=== PATIENT | female | born 1940 | race Caucasian/White ===

== ENCOUNTER 2021-02-24 13:35 | Inpatient (IN) | payer MEDICARE ==
[~2021-02-24] VITALS: Ht 160 cm; Wt 74.9 kg
[2021-02-24] MEDS ORDERED: CARB15DR3 EACHEYE (14:32)
[2021-02-24] MEDS ORDERED: LORA-52 PO (14:32)
[2021-02-24] MEDS ORDERED: QUET25TA5 PO (14:32)
[2021-02-24] MEDS ORDERED: CHOL100014 PO (14:32)
[2021-02-24] MEDS ORDERED: LISI10TA16 PO (14:32)
[2021-02-24] MEDS ORDERED: METO50TA29 PO (14:32)
[2021-02-24] MEDS ORDERED: DICL20GE TP (14:32)
[2021-02-24] MEDS ORDERED: NIFE30TA2 PO (14:32)
[2021-02-24] MEDS ORDERED: MELA10TA PO (14:32)
[2021-02-24] MEDS ORDERED: MEMA10TA PO (14:32)
[2021-02-24] MEDS ORDERED: DONE5TAB56 PO (14:32)
[2021-02-24] MEDS ORDERED: SERT50TA PO (14:32)
[2021-02-24 15:56] VITALS: BP 153/84
[2021-02-24] MEDS ORDERED: METHYL SALICYLATE/MENTHOL TOPICAL OINTMENT 57GM TUBE. TP PRN (16:45)
[2021-02-24] MEDS ORDERED: ACETAMINOPHEN 325 MG TABLET PO PRN (16:45)
[2021-02-24] MEDS ORDERED: MAGNESIUM HYDROXIDE 2,400 MG/30 ML ORAL.SUSP. PO PRN (16:45)
[2021-02-24] MEDS ORDERED: MAG HYDROX/AL HYDROX/SIMETH 30 ML ORAL.SUSP PO PRN (16:45)
--- NOTE | 2021-02-24 20:51 | EKG ---
[address] [address] Test Date: 2021-02-24 Test Time: 20:30:24 Pat Name: ITZ YARBROUGH Department: Room: [address] [place] [address] Gender: F [employer]pper: : 1940 Requested By: JENNIFER HANSON Order Number: [id number] Reading MD: Niall Caldera Measurements Intervals [place] Rate: 56 P: LA: QRS: -137 QRSD: 94 T: 45 QT: 460 QTc: 447 Interpretive Statements SINUS RHYTHM QRS(T) CONTOUR ABNORMALITY CONSIDER ANTEROSEPTAL MYOCARDIAL DAMAGE T ABNORMALITY IN INFERIOR LEADS ABNORMAL ECG RI6.01 No previous ECG available for comparison Electronically Signed On 02-28-2021 13:36:41 CDT by Niall Caldera
[2021-02-24 21:00] LABS: BASO # 0.1 x10^3/uL (0.0-0.2); BASO % 1 % (0-3); EOS # 0.3 x10^3/uL (0.0-0.7); EOS % 4 % (0-3); HEMATOCRIT 40.6 % (36.0-47.0); HEMOGLOBIN 13.3 g/dL (12.0-15.5); LYMPH # 2.1 x10^3/uL (1.0-4.8); LYMPH % 30 % (24-48); MEAN CORPUSCULAR HEMOGLOBIN 30 pg (25-35); MEAN CORPUSCULAR HGB CONC 33 g/dL (31-37); MEAN CORPUSCULAR VOLUME 91 fL (79-100); MONO # 0.6 x10^3/uL (0.0-1.1); MONO % 9 % (0-9); NEUT % 57 % (31-73); PLATELET COUNT 163 x10^3/uL (140-400); RED BLOOD COUNT 4.46 x10^6/uL (3.50-5.40); WHITE BLOOD COUNT 7.1 x10^3/uL (4.0-11.0)
[2021-02-24 21:14] LABS: ALBUMIN 3.5 g/dL (3.4-5.0); ALBUMIN/GLOBULIN RATIO 0.8 (1.0-1.7); GFR 53.5; MAGNESIUM 2.3 mg/dL (1.8-2.4); POTASSIUM 3.7 mmol/L (3.5-5.1); TOTAL BILIRUBIN 0.3 mg/dL (0.2-1.0); TOTAL PROTEIN 7.7 g/dL (6.4-8.2)
--- NOTE | 2021-02-24 21:57 | PDOC ---
Exam Note: Jack Note: Please also refer to the separate dictated note~for this date of service dictated separately.~Patient seen individually. Discussed the patient with Nursing staff reviewed the chart.~Reviewed interim history and current functioning. Reviewed vital signs,~Labs/ Radiology~and current medications noted below. Continue current treatment with the changes noted in the dictated addendum note Assessment: Vital Signs/I&O: Vital Signs Date Time Temp Pulse Resp B/P (MAP) Pulse Ox O2 Delivery O2 Flow Rate FiO2 02/24/21 15:56 97.8 65 18 153/84 (107) 95 Labs: Laboratory Tests Test 02/24/21 20:35 White Blood Count 7.1 x10^3/uL (4.0-11.0) Red Blood Count 4.46 x10^6/uL (3.50-5.40) Hemoglobin 13.3 g/dL (12.0-15.5) Hematocrit 40.6 % (36.0-47.0) Mean Corpuscular Volume 91 fL (79-100) Mean Corpuscular Hemoglobin 30 pg (25-35) Mean Corpuscular Hemoglobin Concent 33 g/dL (31-37) Red Cell Distribution Width 14.0 % (11.5-14.5) Platelet Count 163 x10^3/uL (140-400) Neutrophils (%) (Auto) 57 % (31-73) Lymphocytes (%) (Auto) 30 % (24-48) Monocytes (%) (Auto) 9 % (0-9) Eosinophils (%) (Auto) 4 % (0-3) H Basophils (%) (Auto) 1 % (0-3) Neutrophils # (Auto) 4.0 x10^3uL (1.8-7.7) Lymphocytes # (Auto) 2.1 x10^3/uL (1.0-4.8) Monocytes # (Auto) 0.6 x10^3/uL (0.0-1.1) Eosinophils # (Auto) 0.3 x10^3/uL (0.0-0.7) Basophils # (Auto) 0.1 x10^3/uL (0.0-0.2) D-Dimer (Ay) 0.43 mg/L (0.00-0.50) Sodium Level 139 mmol/L (136-145) Potassium Level 3.7 mmol/L (3.5-5.1) Chloride Level 103 mmol/L (98-107) Carbon Dioxide Level 25 mmol/L (21-32) Anion Gap 11 (6-14) Blood Urea Nitrogen 23 mg/dL (7-20) H Creatinine 1.0 mg/dL (0.6-1.0) Estimated GFR (Cockcroft-Gault) 53.5 BUN/Creatinine Ratio 23 (6-20) H Glucose Level 123 mg/dL (70-99) H Calcium Level 9.0 mg/dL (8.5-10.1) Magnesium Level 2.3 mg/dL (1.8-2.4) Total Bilirubin 0.3 mg/dL (0.2-1.0) Aspartate Amino Transferase (AST) 19 U/L (15-37) Alanine Aminotransferase (ALT) 30 U/L (14-59) Alkaline Phosphatase 63 U/L (46-116) Total Protein 7.7 g/dL (6.4-8.2) Albumin 3.5 g/dL (3.4-5.0) Albumin/Globulin Ratio 0.8 (1.0-1.7) L Current Medications: Meds: Laboratory Tests Test 02/24/21 20:35 White Blood Count 7.1 x10^3/uL Red Blood Count 4.46 x10^6/uL Hemoglobin 13.3 g/dL Hematocrit 40.6 % Mean Corpuscular Volume 91 fL Mean Corpuscular Hemoglobin 30 pg Mean Corpuscular Hemoglobin Concent 33 g/dL Red Cell Distribution Width 14.0 % Platelet Count 163 x10^3/uL Neutrophils (%) (Auto) 57 % Lymphocytes (%) (Auto) 30 % Monocytes (%) (Auto) 9 % Eosinophils (%) (Auto) 4 % Basophils (%) (Auto) 1 % Neutrophils # (Auto) 4.0 x10^3uL Lymphocytes # (Auto) 2.1 x10^3/uL Monocytes # (Auto) 0.6 x10^3/uL Eosinophils # (Auto) 0.3 x10^3/uL Basophils # (Auto) 0.1 x10^3/uL D-Dimer (Ya) 0.43 mg/L Sodium Level 139 mmol/L Potassium Level 3.7 mmol/L Chloride Level 103 mmol/L Carbon Dioxide Level 25 mmol/L Anion Gap 11 Blood Urea Nitrogen 23 mg/dL Creatinine 1.0 mg/dL Estimated GFR (Cockcroft-Gault) 53.5 BUN/Creatinine Ratio 23 Glucose Level 123 mg/dL Calcium Level 9.0 mg/dL Magnesium Level 2.3 mg/dL Total Bilirubin 0.3 mg/dL Aspartate Amino Transf (AST/SGOT) 19 U/L Alanine Aminotransferase (ALT/SGPT) 30 U/L Alkaline Phosphatase 63 U/L Total Protein 7.7 g/dL Albumin 3.5 g/dL Albumin/Globulin Ratio 0.8 Current Medications Medications (Trade) Dose Ordered Sig/Geoffrey Route PRN Reason Start Time Stop Time Status Last Admin Dose Admin Acetaminophen (Tylenol) 650 mg PRN Q6HRS PRN PO MILD PAIN / TEMP > 100.3'F 02/24/21 16:45 Multi-Ingredient Ointment (Analgesic [place]) 1 alis PRN QID PRN TP MUSCLE PAIN 02/24/21 16:45 Al Hydroxide/Mg Hydroxide (Mylanta Plus Xs) 15 ml PRN AFTMEALHC PRN PO DYSPEPSIA 02/24/21 16:45 Magnesium Hydroxide (Milk Of Magnesia) 2,400 mg PRN QHS PRN PO CONSTIPATION 02/24/21 16:45 Diclofenac Sodium (Voltaren) 1 alis BID TP 02/24/21 21:00 Donepezil HCl (Aricept) 15 mg HS PO 02/24/21 21:00 Lisinopril (Prinivil) 10 mg DAILY PO 02/25/21 09:00 Memantine (Namenda) 10 mg BID PO 02/24/21 21:00 Metoprolol Succinate (Toprol Xl) 50 mg HS PO 02/24/21 21:00 Nifedipine (Procardia Xl) 30 mg DAILY PO 02/25/21 09:00 Quetiapine Fumarate (SEROquel) 25 mg BID PO 02/24/21 21:00 Sertraline HCl (Zoloft) 50 mg DAILY PO 02/25/21 09:00 Artificial Tears (Refresh Classic) 1 drop BID OU 02/24/21 21:00 Vitamin D (Vitamin D3) 25 unit DAILY PO 02/25/21 09:00 Cetirizine HCl (ZyrTEC) 10 mg DAILY PO 02/25/21 09:00 Melatonin (Melatonin) 3 mg QHS PO 02/24/21 21:00 I have reviewed the current psychotropics carefully including drug interactions. Risk benefit ratio favors no change other than as noted in my dictated progress note. Diagnosis: Problems: (1) Dementia with behavioral disturbance (2) Major neurocognitive disorder (3) Dementia in Alzheimer's disease with delusions (4) Dementia in Alzheimer's disease with depression (5) Dementia, vascular, with delusions (6) Dementia, vascular, with depression (7) Anxiety disorder, unspecified (8) Impulse control disorder, unspecified JENNIFER HANSON MD Feb 24, 2021 21:57
[2021-02-24] MEDS: METOPROLOL SUCC 24HR ER 50 MG TAB.ER.24H. PO SCH (21:59)
[2021-02-24] MEDS: QUEtiapine 25 MG TABLET. PO SCH (21:59)
[2021-02-24] MEDS: DONEPEZIL HCL 5 MG TABLET. PO SCH (21:59)
[2021-02-24] MEDS: MELATONIN 3 MG TABLET PO SCH (21:59)
[2021-02-24] MEDS: POLYVINYL ALCOHOL/POVIDONE/PF OPHTH SOLUTION DROPERETTE. OU SCH (22:00)
[2021-02-24] MEDS: MEMANTINE 10 MG TABLET. PO SCH (22:00)
[2021-02-24] MEDS: DICLOFENAC SODIUM 1% TOPICAL GEL 100GM TUBE. TP SCH ×3 (22:01→23:38)
--- NOTE | 2021-02-24 22:27 | HP ---
DATE OF SERVICE: 02/24/2021 ADMIT DATE: 02/24/2021 PSYCHIATRIC ADMISSION HISTORY/EVALUATION IDENTIFYING DATA: The patient is a 80-year-old female referred to us from [facility] by her primary care physician, Dr. Stephanie Rose, and coordinated by her daughter, Maia Garcia, since the daughter is the power of assistant city attorney. She has been referred on account of worsening aggression toward staff. She tried to hit a peer, was accusing staff of taking her things. She was hoarding soiled briefs in her room. She thought a peer had killed her . She has been extremely hypersexual, though family states this behavior has persisted much of her life. The patient has been paranoid, more confused, agitated, has failed outpatient psychiatric intervention resulting in this referral. I met with the patient on the evening of 02/24/2021 for this evaluation. CHIEF COMPLAINT: "I came here today. No, I don't know where I live." HISTORY OF PRESENT ILLNESS: The patient reportedly has a history of dementia, Alzheimer's, vascular type. She has been residing at the [facility], but recently has been extremely agitated, aggressive, disruptive, psychotic and paranoid within the context of her dementia. She has had some sleep and appetite changes. No active suicidal or homicidal ideation. PAST PSYCHIATRIC HISTORY: As above. MEDICAL HISTORY: Hypertension, seasonal allergies, hard of hearing, migraine headaches, history of TIAs, hyperlipidemia, heart murmur, spinal stenosis. ACCU-CHEKS: None. CODE STATUS: DNR. ALLERGIES: INFLUENZA VACCINE, CODEINE, POVIDONE IODINE, SHELLFISH, EPINEPHRINE, SULFA, CEFTIN, CIPRO, AUGMENTIN, REGLAN, DORYX, LATEX TAPE, CEPACOL SORE THROAT SPRAY. DIET: Regular. ACTIVITY: Ambulates independently. CURRENT PSYCHOTROPICS: Aricept 15 mg at bedtime, melatonin 10 mg at bedtime, Namenda 10 mg b.i.d., Seroquel 25 mg b.i.d., Zoloft 50 mg a day. FAMILY HISTORY: Noncontributory. SOCIAL HISTORY: No history of alcohol, drug abuse, physical, sexual, elder abuse history is noted. She is not known to be a perpetrator. REACTION TO HOSPITALIZATION: The patient accepting of it. REVIEW OF SYSTEMS: No CV, , pulmonary, eye, ENT system symptoms on review. I met with the patient in her room, evening of 02/24/2021. MENTAL STATUS EXAM: The patient is oriented to herself. Insight, judgment, recent and remote memory, attention, concentration, fund of knowledge poor consistent with her diagnosis. She did seem to know she came here today, but I am not sure if that was just an aberrant response that turned out to be right. [facility], she was hitting, kicking, biting per GRAHAM Gamboa. IMPRESSION: Major neurocognitive disorder, Alzheimer, vascular with delusion, depression, behavioral disturbance; anxiety disorder, unspecified; impulse control disorder, unspecified. Rest as above. PLAN: Admit to geropsychiatry unit at [facility]. I will see the patient daily individually from a psychiatric standpoint, medical followup with Dr. Elizabeth/Dr. Grover. Continue current psychotropics, observe baseline, adjust as clinically indicated. ESTIMATED LENGTH OF STAY: 10-12 days. DISPOSITION PLAN: Back to [facility] when stable. HAMIDA DR: Martin TID: [id number]
[2021-02-24] MEDS ORDERED: NYSTATIN TOPICAL POWDER 15GM BOTTLE. TP PRN (23:00)
[2021-02-25 03:05] LABS: BACTERIA,URINE FEW /HPF (0-FEW); BILIRUBIN,URINE NEG (NEG); CLARITY,URINE CLEAR; COLOR,URINE YELLOW; GLUCOSE,URINE NEG (NEG); HYALINE CASTS, URINE FEW /HPF; NITRITE,URINE NEG (NEG); SQUAMOUS EPITHELIAL CELL,UR FEW /LPF; UROBILINOGEN,URINE 0.2 mg/dL (0.2 mg/dL)
[2021-02-25 05:52] VITALS: BP 111/75
[2021-02-25] MEDS: DICLOFENAC SODIUM 1% TOPICAL GEL 100GM TUBE. TP SCH ×2 (09:00→21:00)
[2021-02-25] MEDS ORDERED: CHOLECALCIFEROL (VITAMIN D3) 1,000 UNIT TABLET PO SCH (09:00)
[2021-02-25] MEDS: POLYVINYL ALCOHOL/POVIDONE/PF OPHTH SOLUTION DROPERETTE. OU SCH ×2 (09:08→21:57)
[2021-02-25] MEDS: LISINOPRIL 10 MG TABLET PO SCH (09:09)
[2021-02-25] MEDS: MEMANTINE 10 MG TABLET. PO SCH ×2 (09:09→21:57)
[2021-02-25] MEDS: CETIRIZINE HCL 10 MG TABLET PO SCH (09:09)
[2021-02-25] MEDS: SERTRALINE 50 MG TABLET. PO SCH (09:09)
[2021-02-25] MEDS: QUEtiapine 25 MG TABLET. PO SCH ×2 (09:09→21:56)
[2021-02-25] MEDS: CHOLECALCIFEROL (VITAMIN D3) 1,000 UNIT TABLET PO SCH (12:08)
--- NOTE | 2021-02-25 13:16 | CONS ---
DATE OF CONSULTATION: 02/25/2021 ATTENDING PHYSICIAN: Dr. Escoto. We are asked to see this patient for medical consultation. HISTORY OF PRESENT ILLNESS: Mikaela Hines is a 80-year-old female, currently a resident at the facility in [place], [place]. She has significant profound dementia. Recently, she has had behavioral issues with hypersexual behavior, trying to hit peer, aggressive towards staff, and throwing things. She is somewhat paranoid. She is very pleasant at this time and has no complaints. PAST MEDICAL HISTORY: Significant for dementia, TIA, high blood pressure, herniated nucleus pulposus, supposed juvenile rheumatoid arthritis and spinal stenosis. CURRENT MEDICATIONS: Reviewed. She was taking cholecalciferol, Tylenol, Artificial Tears, cetirizine, diclofenac, Aricept, magnesium hydroxide, melatonin, Namenda, metoprolol, nifedipine, Seroquel, Zoloft, and vitamin D. ALLERGIES: SHE HAS MULTIPLE ALLERGIES INCLUDING PROZAC, SULFA, TAPE, AMOXICILLIN, ASPIRIN, BENZOCAINE, CEFUROXIME, CIPRO, CLAVULANIC ACID, CODEINE, DOXYCYCLINE, EPINEPHRINE, EXACT REACTIONS ARE UNCLEAR. SOCIAL HISTORY: She is a nonsmoker, nondrinker. FAMILY HISTORY: Unobtainable. REVIEW OF SYSTEMS: Significant for the psychiatric issues. She is at a shelter at this time. PHYSICAL EXAMINATION: GENERAL: When I saw her, this is a pleasant elderly female who is a bit confused. VITAL SIGNS: Initial vital signs showed a blood pressure 153/84, pulse is 65 and regular. She is afebrile. Oxygen saturation is 86% on room air. HEENT: Head is without trauma. Pupils are reactive. Sclerae nonicteric. Oropharynx is clear. NECK: Supple, no bruits. LUNGS: Clear. CARDIOVASCULAR: Showed regular heart tones. No gallop. ABDOMEN: Soft. EXTREMITIES: Without edema. NEUROLOGIC: Focally intact. PERTINENT LABORATORY STUDIES: Hemoglobin is 13.3 g/dL with a white count of 7100. Electrolytes are within normal range. Nonfasting blood sugar 123. Urinalysis was clear. ASSESSMENT: 1. This is a 80-year-old female with profound dementia. 2. Behavioral issues as noted. 3. Essential hypertension. 4. Hyperlipidemia. 5. History of TIA. PLAN AND RECOMMENDATIONS: 1. I have reviewed her medications and they should be continued. 2. The patient is stable from medical standpoint at this time. Thank you again for asking to see the patient for medical consultation. We shall gladly follow along during her inpatient course. ROSE/RAMBO/GILA DR: ROSE/kyra TID: [id number]
[2021-02-25 14:36] LABS: THYROID STIM HORMONE (TSH) 2.633 uIU/mL (0.358-3.740)
[2021-02-25 16:08] VITALS: BP 98/62
[2021-02-25 20:06] LABS: THYROXINE 4.7 ug/dL (4.5-12.0)
[2021-02-25] MEDS: DONEPEZIL HCL 5 MG TABLET. PO SCH (21:56)
[2021-02-25] MEDS: MELATONIN 3 MG TABLET PO SCH (21:56)
[2021-02-25] MEDS: METOPROLOL SUCC 24HR ER 50 MG TAB.ER.24H. PO SCH (21:57)
--- NOTE | 2021-02-25 21:58 | PDOC ---
Exam Note: Jack Note: Please also refer to the separate dictated note~for this date of service dictated separately.~Patient seen individually. Discussed the patient with Nursing staff reviewed the chart.~Reviewed interim history and current functioning. Reviewed vital signs,~Labs/ Radiology~and current medications noted below. Continue current treatment with the changes noted in the dictated addendum note Assessment: Vital Signs/I&O: Vital Signs Date Time Temp Pulse Resp B/P (MAP) Pulse Ox O2 Delivery O2 Flow Rate FiO2 02/25/21 16:08 98.7 68 18 98/62 (74) 96 02/25/21 05:52 Room Air I & O 02/24/21 02/24/21 02/25/21 15:00 23:00 07:00 Intake Total 360 ml Balance 360 ml Labs: Laboratory Tests Test 02/25/21 02:30 Urine Collection Type Unknown Urine Color Yellow Urine Clarity Clear Urine pH 5.0 Urine Specific Gerry 1.015 Urine Protein Neg (NEG-TRACE) Urine Glucose (UA) Neg mg/dL (NEG) Urine Ketones (Stick) Neg mg/dL (NEG) Urine Blood Neg (NEG) Urine Nitrite Neg (NEG) Urine Bilirubin Neg (NEG) Urine Urobilinogen Dipstick 0.2 mg/dL (0.2 mg/dL) Urine Leukocyte Esterase Neg (NEG) Urine RBC 1-2 /HPF (0-2) Urine WBC 1-4 /HPF (0-4) Urine Squamous Epithelial Cells Few /LPF Urine Bacteria Few /HPF (0-FEW) Urine Hyaline Casts Few /HPF Urine Mucus Slight /LPF Current Medications: Meds: Laboratory Tests Test 02/25/21 02:30 Urine Collection Type Unknown Urine Color Yellow Urine Clarity Clear Urine pH 5.0 Urine Specific Gerry 1.015 Urine Protein Neg Urine Glucose (UA) Neg mg/dL Urine Ketones (Stick) Neg mg/dL Urine Blood Neg Urine Nitrite Neg Urine Bilirubin Neg Urine Urobilinogen Dipstick 0.2 mg/dL Urine Leukocyte Esterase Neg Urine RBC 1-2 /HPF Urine WBC 1-4 /HPF Urine Squamous Epithelial Cells Few /LPF Urine Bacteria Few /HPF Urine Hyaline Casts Few /HPF Urine Mucus Slight /LPF Current Medications Medications (Trade) Dose Ordered Sig/Geoffrey Route PRN Reason Start Time Stop Time Status Last Admin Dose Admin Acetaminophen (Tylenol) 650 mg PRN Q6HRS PRN PO MILD PAIN / TEMP > 100.3'F 02/24/21 16:45 Multi-Ingredient Ointment (Analgesic [place]) 1 alis PRN QID PRN TP MUSCLE PAIN 02/24/21 16:45 Al Hydroxide/Mg Hydroxide (Mylanta Plus Xs) 15 ml PRN AFTMEALHC PRN PO DYSPEPSIA 02/24/21 16:45 Magnesium Hydroxide (Milk Of Magnesia) 2,400 mg PRN QHS PRN PO CONSTIPATION 02/24/21 16:45 Diclofenac Sodium (Voltaren) 1 alis BID TP 02/24/21 21:00 Donepezil HCl (Aricept) 15 mg HS PO 02/24/21 21:00 02/24/21 21:59 Lisinopril (Prinivil) 10 mg DAILY PO 02/25/21 09:00 02/25/21 09:09 Memantine (Namenda) 10 mg BID PO 02/24/21 21:00 02/25/21 09:09 Metoprolol Succinate (Toprol Xl) 50 mg HS PO 02/24/21 21:00 02/24/21 21:59 Nifedipine (Procardia Xl) 30 mg DAILY PO 02/25/21 09:00 02/25/21 09:09 Quetiapine Fumarate (SEROquel) 25 mg BID PO 02/24/21 21:00 02/25/21 09:09 Sertraline HCl (Zoloft) 50 mg DAILY PO 02/25/21 09:00 02/25/21 09:09 Artificial Tears (Refresh Classic) 1 drop BID OU 02/24/21 21:00 02/25/21 09:08 Vitamin D (Vitamin D3) 25 unit DAILY PO 02/25/21 09:00 02/25/21 10:32 DC Cetirizine HCl (ZyrTEC) 10 mg DAILY PO 02/25/21 09:00 02/25/21 09:09 Melatonin (Melatonin) 3 mg QHS PO 02/24/21 21:00 02/24/21 21:59 Nystatin (Nystop) 1 alis PRN BID PRN TP groin irritation/yeast 02/24/21 23:00 02/25/21 05:10 Vitamin D (Vitamin D3) 1,000 unit DAILY PO 02/25/21 10:45 02/25/21 12:08 Current Medications Medications (Trade) Dose Ordered Sig/Geoffrey Route PRN Reason Start Time Stop Time Status Last Admin Dose Admin Lisinopril (Prinivil) 10 mg DAILY PO 02/25/21 09:00 02/25/21 09:09 Nifedipine (Procardia Xl) 30 mg DAILY PO 02/25/21 09:00 02/25/21 09:09 Sertraline HCl (Zoloft) 50 mg DAILY PO 02/25/21 09:00 02/25/21 09:09 Cetirizine HCl (ZyrTEC) 10 mg DAILY PO 02/25/21 09:00 02/25/21 09:09 Nystatin (Nystop) 1 alis PRN BID PRN TP groin irritation/yeast 02/24/21 23:00 02/25/21 05:10 Vitamin D (Vitamin D3) 1,000 unit DAILY PO 02/25/21 10:45 02/25/21 12:08 I have reviewed the current psychotropics carefully including drug interactions. Risk benefit ratio favors no change other than as noted in my dictated progress note. 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
[2021-02-26 01:07] LABS: HEMOGLOBIN A1C 6.3 % (4.8-5.6)
[2021-02-26 06:29] VITALS: BP 123/62
[2021-02-26] MEDS: DICLOFENAC SODIUM 1% TOPICAL GEL 100GM TUBE. TP SCH ×2 (09:00→19:53)
[2021-02-26] MEDS: CHOLECALCIFEROL (VITAMIN D3) 1,000 UNIT TABLET PO SCH (09:13)
[2021-02-26] MEDS: CETIRIZINE HCL 10 MG TABLET PO SCH (09:13)
[2021-02-26] MEDS: SERTRALINE 50 MG TABLET. PO SCH (09:13)
[2021-02-26] MEDS: POLYVINYL ALCOHOL/POVIDONE/PF OPHTH SOLUTION DROPERETTE. OU SCH ×2 (09:14→19:53)
[2021-02-26] MEDS: MEMANTINE 10 MG TABLET. PO SCH ×2 (09:14→19:52)
[2021-02-26] MEDS: LISINOPRIL 10 MG TABLET PO SCH (09:14)
[2021-02-26] MEDS: QUEtiapine 25 MG TABLET. PO SCH ×2 (09:14→19:52)
[2021-02-26 15:52] VITALS: BP 119/57
[2021-02-26] MEDS: MELATONIN 3 MG TABLET PO SCH (19:52)
[2021-02-26] MEDS: METOPROLOL SUCC 24HR ER 50 MG TAB.ER.24H. PO SCH (19:53)
[2021-02-26] MEDS: DONEPEZIL HCL 5 MG TABLET. PO SCH (19:53)
--- NOTE | 2021-02-27 00:49 | PN ---
DATE: 02/25/2021 PSYCHIATRIC PROGRESS NOTE This is a late entry, date of service 02/25/2021, covers elements not covered in my initial note. SUBJECTIVE: I met with the patient on the evening of 02/25/2021. Discussed with GRAHAM Gamboa. Reviewed the chart. The patient slept 7-1/4 hours previous evening. She remains confused, was more oriented to her first and last name and date today. She is otherwise confused and unaware of where she is, stating she needed a bed. She seems to thoroughly enjoy ice cream, which helps her behaviorally somewhat by reducing anxiety. I met with her in her room. She slept 7-1/4 hours previous night. REVIEW OF SYSTEMS: No CV, , pulmonary, eye, ENT system symptoms on review. Reliability poor. MENTAL STATUS EXAMINATION: Oriented to herself. Insight, judgment, recent and remote memory, attention, concentration, fund of knowledge poor consistent with her diagnosis. IMPRESSION: Major neurocognitive disorder, Alzheimer, vascular with delusion, depression, behavioral disturbance, anxiety disorder, unspecified; impulse control disorder, unspecified. Rest unchanged from admission. PLAN: Continue Aricept, melatonin, Namenda, Seroquel and Zoloft for now. May consider increasing Zoloft for her mood and anxiety symptoms, adjusting Seroquel as clinically indicated and make further adjustments depending on the patient's progress and response to treatment. SHYAM DR: Martin TID: [id number]
[2021-02-27 05:44] VITALS: BP 106/69
--- NOTE | 2021-02-27 08:44 | PDOC ---
Exam Note: Jack Note: Late entry for 02/26/2021.Please also refer to the separate dictated note~for this date of service dictated separately.~Patient seen individually. Discussed the patient with Nursing staff reviewed the chart.~Reviewed interim history and current functioning. Reviewed vital signs,~Labs/ Radiology~and current medica tions noted below. Continue current treatment with the changes noted in the dictated addendum note Assessment: Vital Signs/I&O: Vital Signs Date Time Temp Pulse Resp B/P (MAP) Pulse Ox O2 Delivery O2 Flow Rate FiO2 02/27/21 05:44 97.9 56 18 106/69 (81) 93 02/25/21 05:52 Room Air I & O 02/26/21 02/26/21 02/27/21 15:00 23:00 07:00 Intake Total 480 ml 360 ml Balance 480 ml 360 ml Current Medications: I have reviewed the current psychotropics carefully including drug interactions. Risk benefit ratio favors no change other than as noted in my dictated progress note. 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
[2021-02-27] MEDS: DICLOFENAC SODIUM 1% TOPICAL GEL 100GM TUBE. TP SCH ×2 (09:00→20:59)
[2021-02-27] MEDS: POLYVINYL ALCOHOL/POVIDONE/PF OPHTH SOLUTION DROPERETTE. OU SCH ×2 (09:02→20:52)
[2021-02-27] MEDS: CHOLECALCIFEROL (VITAMIN D3) 1,000 UNIT TABLET PO SCH (09:02)
[2021-02-27] MEDS: MEMANTINE 10 MG TABLET. PO SCH ×2 (09:02→20:52)
[2021-02-27] MEDS: QUEtiapine 25 MG TABLET. PO SCH ×2 (09:03→20:52)
[2021-02-27] MEDS: SERTRALINE 50 MG TABLET. PO SCH (09:03)
[2021-02-27] MEDS: CETIRIZINE HCL 10 MG TABLET PO SCH (09:03)
[2021-02-27] MEDS: LISINOPRIL 10 MG TABLET PO SCH (09:03)
--- NOTE | 2021-02-27 11:44 | TX PLAN ---
Interdisciplinary Tx Plan Admission Information Feb 24, 2021 at 15:25 Legal Status (on Admission): Voluntary, DPOA DPOA/Guardian Name: Maia Marte-daughter Contact Other Contact Name: Chitra-nurse Other Contact Verified Code Status: DNR Allergies: Coded Allergies: Iodine and Iodide Containing Produc (Verified Allergy, Unknown, 02/24/21) Sulfa (Sulfonamide Antibiotics) (Verified Allergy, Unknown, 02/24/21) adhesive tape (Verified Allergy, Unknown, 02/24/21) amoxicillin (Verified Allergy, Unknown, 02/24/21) aspirin (Verified Allergy, Unknown, 02/24/21) benzocaine (Verified Allergy, Unknown, 02/24/21) cefuroxime (Verified Allergy, Unknown, 02/24/21) cetylpyridinium chloride (Verified Allergy, Unknown, 02/24/21) ciprofloxacin (Verified Allergy, Unknown, 02/24/21) clavulanic acid (Verified Allergy, Unknown, 02/24/21) codeine (Verified Allergy, Unknown, 02/24/21) doxycycline (Verified Allergy, Unknown, 02/24/21) epinephrine (Verified Allergy, Unknown, 02/24/21) influenza virus vaccine, specific (Verified Allergy, Unknown, 02/24/21) latex (Verified Allergy, Unknown, 02/24/21) menthol (Verified Allergy, Unknown, 02/24/21) metoclopramide (Verified Allergy, Unknown, 02/24/21) oxycodone (Verified Allergy, Unknown, 02/24/21) shellfish derived (Verified Allergy, Unknown, 02/24/21) Estimated Length of Stay: 14 Diagnoses Primary Diagnosis: Major neurocognitive d/o, vascular, alzheimer's with delusions, depression, BD; Anxiety d/o unspecified; Impulse Control D/O Reasons for Admission: Aggressive, Delusions, Agitated, Suspicious/paranoid, Confusion/Disoriented, Poor impulse control Problem in Patient's Words: As noted above. Per Radha, "I've got something in my body that's not doing something and causing me to be sick." Additional Admission Comments: Per intake record, accusing staff of pushing her, aggressive towards staff, accuses staff of taking her stuff, hoarding soiled briefs in her room, tried to hit a peer, history of hypersexual behavior, and thought a peer killed her . Problems Active Problems: Delusional Paranoid Confused Hoarding Aggressive Inactive Problems: Meal intakes 50% Sleep 7 hours Medication compliant Pt Strengths/Limitations Ability for [place]: Poor Cognitive Functioning/Ability: Poor Communication Skills/Ability: Fair Financial Resources: Fair Insight/Judgement: Poor Intellectual Ability: Fair Physical Health: Fair Social Skills: Fair Stability in Family: Good Verbal Skills: Fair Discharge Criteria Discharge Criteria: Adequate arrangements @DC, Improved behavior, Improved mood/thought Preliminary Discharge Plan Preliminary DC Plan: Current Living Arrange. Other Arrangements: [facility] vs. memory care Special Precautions Special Precautions: Agitation/Assault Fall Risk: High Initial D/C Plan [facility] vs. memory care placement Identified Discharge Needs: F/U with PCP and out patient psychiatry. Currently Utilized Resources Currently Utilized Resources/P: PCP Out patient psychiatry Identified Problems/Hx/Goals Objectives/Short-Term Goals Short Term Goals: Control abnormal behavior, Dec. Aggression, Dec. Hallucination/Delus, Dec. Outbursts, Medication Stabilization Short Term Goals in Patient's: Per MICHELLE, to ensure Radha is getting the best care, on the right medications, and to preserve placement at [facility] if safe to do so. Interventions/Frequency Staff Interventions/Frequency&: Nursing to provide routine safety checks, medicaton administation, and adl support. Psychiatry to see threes times weekly. SW to see twice weekly. PT/OT eval and tx as indicated. Recreational and SW group activties as Radha desires. 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 Social: Radha has enjoyed [employer] choir, [employer], sewing, and reading. Education: Radha graduated from high school and attended nursing school. 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 Community Follow-up PCP Out patient psychiatry Community Provider/Family Inpu: MICHELLE Carvalho, was unable to be involved in team meeting this date as she was working. CT head to be completed. MMSE to be completed. Tentative d/c around 03/12/21. Treatment Plan Explained Patient/Bit Setter had this treatment plan explained to him/her as indicated by the signature below and has been given the opportunity to ask questions and make suggestions: Date: Patient/Bit Setter Signature: HÉCTOR BUTCHER Feb 27, 2021 11:44
[2021-02-27 15:42] VITALS: BP 130/80
--- NOTE | 2021-02-27 16:08 | RAD ---
EXAM: Head CT without contrast. HISTORY: Mental status changes. TECHNIQUE: Computed tomographic images of the head were obtained without contrast. *One or more of the following individualized dose reduction techniques were utilized for this examina tion: 1. Automated exposure control. 2. Adjustment of the mA and/or kV according to patient size. 3. Use of iterative reconstruction technique. COMPARISON: None. FINDINGS: There is no acute or subacute extra-axial or intraparenchymal hemorrhage. There is no mass effect or midline shift. There is no hydrocephalus. 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 There are left suboccipital craniotomy changes. There is decreased attenuation within the cerebral wh ite matter, likely due to chronic small vessel disease. The orbits and visualized paranasal sinuses mastoid air cells are unremarkable. There is no suspiciou s calvarial lesion. IMPRESSION: 1. No acute intracranial finding. Note is made that MRI is more sensitive for acute infarction. 2. Bilateral cerebral white matter changes, likely due to chronic small vessel disease. 3. Encephalomalacia within the left cerebellum. 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 The possibi lity of superimposed parenchymal changes due to prior surgery is not excluded given evidence of a thiago or left suboccipital craniotomy. Correlate with surgical history. Electronically signed by: Esperanza Mar MD (02/27/2021 4:06 PM) [id number]
[2021-02-27] MEDS: MELATONIN 3 MG TABLET PO SCH (20:52)
[2021-02-27] MEDS: DONEPEZIL HCL 5 MG TABLET. PO SCH (20:53)
[2021-02-27] MEDS: METOPROLOL SUCC 24HR ER 50 MG TAB.ER.24H. PO SCH (20:58)
--- NOTE | 2021-02-27 21:43 | PDOC ---
Exam Note: Jack Note: Please also refer to the separate dictated note~for this date of service dictated separately.~Patient seen individually. Discussed the patient with Nursing staff reviewed the chart.~Reviewed interim history and current functioning. Reviewed vital signs,~Labs/ Radiology~and current medications noted below. Continue current treatment with the changes noted in the dictated addendum note Assessment: Vital Signs/I&O: Vital Signs Date Time Temp Pulse Resp B/P (MAP) Pulse Ox O2 Delivery O2 Flow Rate FiO2 02/27/21 20:58 68 138/78 02/27/21 15:42 97.8 16 97 Room Air I & O 02/26/21 02/26/21 02/27/21 15:00 23:00 07:00 Intake Total 480 ml 360 ml Balance 480 ml 360 ml Current Medications: Meds: Current Medications Medications (Trade) Dose Ordered Sig/Geoffrey Route PRN Reason Start Time Stop Time Status Last Admin Dose Admin Acetaminophen (Tylenol) 650 mg PRN Q6HRS PRN PO MILD PAIN / TEMP > 100.3'F 02/24/21 16:45 Multi-Ingredient Ointment (Analgesic [place]) 1 alis PRN QID PRN TP MUSCLE PAIN 02/24/21 16:45 Al Hydroxide/Mg Hydroxide (Mylanta Plus Xs) 15 ml PRN AFTMEALHC PRN PO DYSPEPSIA 02/24/21 16:45 Magnesium Hydroxide (Milk Of Magnesia) 2,400 mg PRN QHS PRN PO CONSTIPATION 02/24/21 16:45 Diclofenac Sodium (Voltaren) 1 alis BID TP 02/24/21 21:00 02/27/21 20:59 Donepezil HCl (Aricept) 15 mg HS PO 02/24/21 21:00 02/27/21 20:53 Lisinopril (Prinivil) 10 mg DAILY PO 02/25/21 09:00 02/27/21 09:03 Memantine (Namenda) 10 mg BID PO 02/24/21 21:00 02/27/21 20:52 Metoprolol Succinate (Toprol Xl) 50 mg HS PO 02/24/21 21:00 02/27/21 20:58 Nifedipine (Procardia Xl) 30 mg DAILY PO 02/25/21 09:00 02/27/21 09:03 Quetiapine Fumarate (SEROquel) 25 mg BID PO 02/24/21 21:00 02/27/21 20:52 Sertraline HCl (Zoloft) 50 mg DAILY PO 02/25/21 09:00 02/27/21 09:03 Artificial Tears (Refresh Classic) 1 drop BID OU 02/24/21 21:00 02/27/21 20:52 Vitamin D (Vitamin D3) 25 unit DAILY PO 02/25/21 09:00 02/25/21 10:32 DC Cetirizine HCl (ZyrTEC) 10 mg DAILY PO 02/25/21 09:00 02/27/21 09:03 Melatonin (Melatonin) 3 mg QHS PO 02/24/21 21:00 02/27/21 20:52 Nystatin (Nystop) 1 alis PRN BID PRN TP groin irritation/yeast 02/24/21 23:00 02/25/21 05:10 Vitamin D (Vitamin D3) 1,000 unit DAILY PO 02/25/21 10:45 02/27/21 09:02 I have reviewed the current psychotropics carefully including drug interactions. Risk benefit ratio favors no change other than as noted in my dictated progress note. Diagnosis: Problems: (1) Dementia with behavioral disturbance (2) Impulse control disorder, unspecified (3) Anxiety disorder, unspecified (4) Dementia, vascular, with depression (5) Dementia, vascular, with delusions (6) Dementia in Alzheimer's disease with depression (7) Dementia in Alzheimer's disease with delusions (8) Major neurocognitive disorder JENNIFER HANSON MD Feb 27, 2021 21:43
[2021-02-28 06:35] VITALS: BP 124/64
[2021-02-28] MEDS: CETIRIZINE HCL 10 MG TABLET PO SCH (08:49)
[2021-02-28] MEDS: CHOLECALCIFEROL (VITAMIN D3) 1,000 UNIT TABLET PO SCH (08:50)
[2021-02-28] MEDS: QUEtiapine 25 MG TABLET. PO SCH ×2 (08:50→20:22)
[2021-02-28] MEDS: SERTRALINE 50 MG TABLET. PO SCH (08:50)
[2021-02-28] MEDS: MEMANTINE 10 MG TABLET. PO SCH ×2 (08:50→20:21)
[2021-02-28] MEDS: POLYVINYL ALCOHOL/POVIDONE/PF OPHTH SOLUTION DROPERETTE. OU SCH ×2 (08:50→20:23)
[2021-02-28] MEDS: LISINOPRIL 10 MG TABLET PO SCH (08:50)
[2021-02-28] MEDS: DICLOFENAC SODIUM 1% TOPICAL GEL 100GM TUBE. TP SCH ×2 (08:51→20:23)
[2021-02-28 15:35] VITALS: BP 157/84
[2021-02-28] MEDS: DONEPEZIL HCL 5 MG TABLET. PO SCH (20:20)
[2021-02-28] MEDS: MELATONIN 3 MG TABLET PO SCH (20:21)
[2021-02-28] MEDS: METOPROLOL SUCC 24HR ER 50 MG TAB.ER.24H. PO SCH (20:22)
--- NOTE | 2021-02-28 21:56 | PDOC ---
Exam Note: Jack Note: Please also refer to the separate dictated note~for this date of service dictated separately.~Patient seen individually. Discussed the patient with Nursing staff reviewed the chart.~Reviewed interim history and current functioning. Reviewed vital signs,~Labs/ Radiology~and current medications noted below. Continue current treatment with the changes noted in the dictated addendum note Assessment: Vital Signs/I&O: Vital Signs Date Time Temp Pulse Resp B/P (MAP) Pulse Ox O2 Delivery O2 Flow Rate FiO2 02/28/21 20:22 81 157/84 02/28/21 15:35 97.4 16 92 02/28/21 06:35 Room Air I & O 02/27/21 02/27/21 02/28/21 15:00 23:00 07:00 Intake Total 800 ml 270 ml Balance 800 ml 270 ml Current Medications: Meds: Current Medications Medications (Trade) Dose Ordered Sig/Geoffrey Route PRN Reason Start Time Stop Time Status Last Admin Dose Admin Acetaminophen (Tylenol) 650 mg PRN Q6HRS PRN PO MILD PAIN / TEMP > 100.3'F 02/24/21 16:45 Multi-Ingredient Ointment (Analgesic [place]) 1 alis PRN QID PRN TP MUSCLE PAIN 02/24/21 16:45 Al Hydroxide/Mg Hydroxide (Mylanta Plus Xs) 15 ml PRN AFTMEALHC PRN PO DYSPEPSIA 02/24/21 16:45 Magnesium Hydroxide (Milk Of Magnesia) 2,400 mg PRN QHS PRN PO CONSTIPATION 02/24/21 16:45 Diclofenac Sodium (Voltaren) 1 alis BID TP 02/24/21 21:00 02/28/21 20:23 Donepezil HCl (Aricept) 15 mg HS PO 02/24/21 21:00 02/28/21 20:20 Lisinopril (Prinivil) 10 mg DAILY PO 02/25/21 09:00 02/28/21 08:50 Memantine (Namenda) 10 mg BID PO 02/24/21 21:00 02/28/21 20:21 Metoprolol Succinate (Toprol Xl) 50 mg HS PO 02/24/21 21:00 02/28/21 20:22 Nifedipine (Procardia Xl) 30 mg DAILY PO 02/25/21 09:00 02/28/21 08:50 Quetiapine Fumarate (SEROquel) 25 mg BID PO 02/24/21 21:00 02/28/21 20:22 Sertraline HCl (Zoloft) 50 mg DAILY PO 02/25/21 09:00 02/28/21 08:50 Artificial Tears (Refresh Classic) 1 drop BID OU 02/24/21 21:00 02/28/21 20:23 Vitamin D (Vitamin D3) 25 unit DAILY PO 02/25/21 09:00 02/25/21 10:32 DC Cetirizine HCl (ZyrTEC) 10 mg DAILY PO 02/25/21 09:00 02/28/21 08:49 Melatonin (Melatonin) 3 mg QHS PO 02/24/21 21:00 02/28/21 20:21 Nystatin (Nystop) 1 alis PRN BID PRN TP groin irritation/yeast 02/24/21 23:00 02/25/21 05:10 Vitamin D (Vitamin D3) 1,000 unit DAILY PO 02/25/21 10:45 02/28/21 08:50 I have reviewed the current psychotropics carefully including drug interactions. Risk benefit ratio favors no change other than as noted in my dictated progress note. Diagnosis: Problems: (1) Dementia with behavioral disturbance (2) Impulse control disorder, unspecified (3) Anxiety disorder, unspecified (4) Dementia, vascular, with depression (5) Dementia, vascular, with delusions (6) Dementia in Alzheimer's disease with depression (7) Dementia in Alzheimer's disease with delusions (8) Major neurocognitive disorder JENNIFER HANSON MD Feb 28, 2021 21:56
[2021-03-01 06:26] VITALS: BP 114/66
[2021-03-01] MEDS: SERTRALINE 50 MG TABLET. PO SCH (09:38)
[2021-03-01] MEDS: MEMANTINE 10 MG TABLET. PO SCH ×2 (09:38→19:42)
[2021-03-01] MEDS: POLYVINYL ALCOHOL/POVIDONE/PF OPHTH SOLUTION DROPERETTE. OU SCH ×2 (09:38→19:41)
[2021-03-01] MEDS: LISINOPRIL 10 MG TABLET PO SCH (09:39)
[2021-03-01] MEDS: CHOLECALCIFEROL (VITAMIN D3) 1,000 UNIT TABLET PO SCH (09:39)
[2021-03-01] MEDS: QUEtiapine 25 MG TABLET. PO SCH ×2 (09:39→19:42)
[2021-03-01] MEDS: CETIRIZINE HCL 10 MG TABLET PO SCH (09:39)
[2021-03-01] MEDS: DIVALPROEX 125 MG CAP.SPRINK PO SCH ×2 (09:40→17:32)
[2021-03-01] MEDS: DICLOFENAC SODIUM 1% TOPICAL GEL 100GM TUBE. TP SCH ×2 (09:40→13:40)
[2021-03-01 16:07] VITALS: BP 123/63
[2021-03-01] MEDS: METOPROLOL SUCC 24HR ER 50 MG TAB.ER.24H. PO SCH (19:41)
[2021-03-01] MEDS: MELATONIN 3 MG TABLET PO SCH (19:42)
[2021-03-01] MEDS: DONEPEZIL HCL 5 MG TABLET. PO SCH (19:42)
[2021-03-02 06:18] VITALS: BP 124/74
[2021-03-02] MEDS: CETIRIZINE HCL 10 MG TABLET PO SCH (08:43)
[2021-03-02] MEDS: MEMANTINE 10 MG TABLET. PO SCH ×2 (08:43→19:48)
[2021-03-02] MEDS: LISINOPRIL 10 MG TABLET PO SCH (08:43)
[2021-03-02] MEDS: DIVALPROEX 125 MG CAP.SPRINK PO SCH ×2 (08:44→17:33)
[2021-03-02] MEDS: POLYVINYL ALCOHOL/POVIDONE/PF OPHTH SOLUTION DROPERETTE. OU SCH ×2 (08:44→19:46)
[2021-03-02] MEDS: SERTRALINE 50 MG TABLET. PO SCH (08:44)
[2021-03-02] MEDS: QUEtiapine 25 MG TABLET. PO SCH ×2 (08:44→19:48)
[2021-03-02] MEDS: CHOLECALCIFEROL (VITAMIN D3) 1,000 UNIT TABLET PO SCH (08:44)
--- NOTE | 2021-03-02 10:06 | PDOC ---
Exam Note: Jack Note: This note is a late entry for 02/26/2021 covers elements not covered in my initial note. Subjective: The patient was seen individually in the evening of 02/26/2021 with Carolyn STEVENSON, discussed and reviewed the chart. The patient slept 9-1/2 hours previous night. She has been somewhat withdrawn, confused. I met with her in her room at length in the evening. Review of Systems: No CV, , pulmonary, eye, ENT system symptoms on review. She has not been aggressive. 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 Insight and judgement, recent and remote memory, attention and concentration, fund of knowledge is poor consistent with her diagnoses. Laboratory Data: Reviewed. Impression: Major neurocognitive disorder Alzheimer, vascular with delusions, depression, behavioral disturbance. Anxiety disorder unspecified. Impulse control disorder unspecified. Plan: Maintain Seroquel, Zoloft, Namenda and Aricept for now. Observe further and adjust as clinically indicated. Assessment: Vital Signs/I&O: Vital Signs Date Time Temp Pulse Resp B/P (MAP) Pulse Ox O2 Delivery O2 Flow Rate FiO2 03/02/21 08:44 52 124/74 03/02/21 06:18 96.8 16 92 Room Air I & O 03/01/21 03/01/21 03/02/21 15:00 23:00 07:00 Intake Total 740 ml 480 ml Balance 740 ml 480 ml Current Medications: Meds: Current Medications Medications (Trade) Dose Ordered Sig/Geoffrey Route PRN Reason Start Time Stop Time Status Last Admin Dose Admin Acetaminophen (Tylenol) 650 mg PRN Q6HRS PRN PO MILD PAIN / TEMP > 100.3'F 02/24/21 16:45 Multi-Ingredient Ointment (Analgesic [place]) 1 alis PRN QID PRN TP MUSCLE PAIN 02/24/21 16:45 Al Hydroxide/Mg Hydroxide (Mylanta Plus Xs) 15 ml PRN AFTMEALHC PRN PO DYSPEPSIA 02/24/21 16:45 Magnesium Hydroxide (Milk Of Magnesia) 2,400 mg PRN QHS PRN PO CONSTIPATION 02/24/21 16:45 Diclofenac Sodium (Voltaren) 1 alis BID TP 02/24/21 21:00 03/01/21 09:40 Donepezil HCl (Aricept) 15 mg HS PO 02/24/21 21:00 03/01/21 19:42 Lisinopril (Prinivil) 10 mg DAILY PO 02/25/21 09:00 03/02/21 08:43 Memantine (Namenda) 10 mg BID PO 02/24/21 21:00 03/02/21 08:43 Metoprolol Succinate (Toprol Xl) 50 mg HS PO 02/24/21 21:00 03/01/21 19:41 Nifedipine (Procardia Xl) 30 mg DAILY PO 02/25/21 09:00 03/02/21 08:44 Quetiapine Fumarate (SEROquel) 25 mg BID PO 02/24/21 21:00 03/02/21 08:44 Sertraline HCl (Zoloft) 50 mg DAILY PO 02/25/21 09:00 03/02/21 08:44 Artificial Tears (Refresh Classic) 1 drop BID OU 02/24/21 21:00 03/02/21 08:44 Vitamin D (Vitamin D3) 25 unit DAILY PO 02/25/21 09:00 02/25/21 10:32 DC Cetirizine HCl (ZyrTEC) 10 mg DAILY PO 02/25/21 09:00 03/02/21 08:43 Melatonin (Melatonin) 3 mg QHS PO 02/24/21 21:00 03/01/21 19:42 Nystatin (Nystop) 1 alis PRN BID PRN TP groin irritation/yeast 02/24/21 23:00 02/25/21 05:10 Vitamin D (Vitamin D3) 1,000 unit DAILY PO 02/25/21 10:45 03/02/21 08:44 Divalproex Sodium (Depakote Sprinkles) 125 mg 0900,1700 PO 03/01/21 09:00 03/02/21 08:44 I have reviewed the current psychotropics carefully including drug interactions. Risk benefit ratio favors no change other than as noted in my dictated progress note. Diagnosis: Problems: (1) Dementia with behavioral disturbance (2) Impulse control disorder, unspecified (3) Anxiety disorder, unspecified (4) Dementia, vascular, with depression (5) Dementia, vascular, with delusions (6) Dementia in Alzheimer's disease with depression (7) Dementia in Alzheimer's disease with delusions (8) Major neurocognitive disorder JENNIFER HANSON MD Mar 02, 2021 10:06
--- NOTE | 2021-03-02 10:23 | PDOC ---
Exam Note: Jack Note: This note is a late entry for 02/27/2021 covers elements not covered in my initial note. Subjective: The patient was reviewed at treatment team meeting individually in the morning on 02/27/2021 with Addie Lima, Tanya Hernandez, and Cyndie Hayward (social media marketing specialist), Krista, activity therapy and Carolyn STEVENSON, discussed and reviewed the chart. The patient slept 6-1/4 hours previous night. Average sleep 7 hours. Appetite is 50%. Reviewed her history at length. 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 Tanya Hernandez, social service staff will clarify with family if she has had hypersexual behaviors even prior to her onset of dementia. She states she has 6 children but in fact has had 4 and said she was an only child but she was one of 6 children growing up. Apparently while growing up she fell through third floor of her house and had a head injury but then she recovered from it. She had other traumatic events in her life including losing her grandfather who was picking food, her who was killed in a camper accident. She has been disrobing at times. At the nursing facility she has been delusional regarding 90-year-old boyfriend who is another resident at the facility and who and the patient was convinced he was poisoned. We did repeat a CT head on 02/27 which shows no acute intracranial findings. Bilateral cerebral white matter changes, chronic small-vessel disease, encephalomalacia within the left cerebellum likely due to chronic infarction. There are likely superimposed parenchymal changes due to prior surgery and there is a prior left suboccipital craniotomy. We will clarify this with the family. I met with her at length in her room in the evening. Review of Systems: No CV, , pulmonary, eye, ENT system symptoms on review. Reliability poor. Mental Status Exam: The patient is oriented to herself. Insight and judgement, recent and remote memory, attention and concentration, fund of knowledge is poor consistent with her diagnoses. Laboratory Data: Reviewed. Impression: Major neurocognitive disorder Alzheimer, vascular with delusions, depression, behavioral disturbance. Anxiety disorder unspecified. Impulse control disorder unspecified. Plan: Maintain Aricept, melatonin, Namenda and Seroquel, along with Zoloft. We will observe another 24 hours baseline and then adjust as clinically indicated. Reviewed drug interactions and risk-benefit ratio. Assessment: Vital Signs/I&O: Vital Signs Date Time Temp Pulse Resp B/P (MAP) Pulse Ox O2 Delivery O2 Flow Rate FiO2 03/02/21 08:44 52 124/74 03/02/21 06:18 96.8 16 92 Room Air I & O 03/01/21 03/01/21 03/02/21 15:00 23:00 07:00 Intake Total 740 ml 480 ml Balance 740 ml 480 ml Current Medications: Meds: Current Medications Medications (Trade) Dose Ordered Sig/Geoffrey Route PRN Reason Start Time Stop Time Status Last Admin Dose Admin Acetaminophen (Tylenol) 650 mg PRN Q6HRS PRN PO MILD PAIN / TEMP > 100.3'F 02/24/21 16:45 Multi-Ingredient Ointment (Analgesic [place]) 1 alis PRN QID PRN TP MUSCLE PAIN 02/24/21 16:45 Al Hydroxide/Mg Hydroxide (Mylanta Plus Xs) 15 ml PRN AFTMEALHC PRN PO DYSPEPSIA 02/24/21 16:45 Magnesium Hydroxide (Milk Of Magnesia) 2,400 mg PRN QHS PRN PO CONSTIPATION 02/24/21 16:45 Diclofenac Sodium (Voltaren) 1 alis BID TP 02/24/21 21:00 03/01/21 09:40 Donepezil HCl (Aricept) 15 mg HS PO 02/24/21 21:00 03/01/21 19:42 Lisinopril (Prinivil) 10 mg DAILY PO 02/25/21 09:00 03/02/21 08:43 Memantine (Namenda) 10 mg BID PO 02/24/21 21:00 03/02/21 08:43 Metoprolol Succinate (Toprol Xl) 50 mg HS PO 02/24/21 21:00 03/01/21 19:41 Nifedipine (Procardia Xl) 30 mg DAILY PO 02/25/21 09:00 03/02/21 08:44 Quetiapine Fumarate (SEROquel) 25 mg BID PO 02/24/21 21:00 03/02/21 08:44 Sertraline HCl (Zoloft) 50 mg DAILY PO 02/25/21 09:00 03/02/21 08:44 Artificial Tears (Refresh Classic) 1 drop BID OU 02/24/21 21:00 03/02/21 08:44 Vitamin D (Vitamin D3) 25 unit DAILY PO 02/25/21 09:00 02/25/21 10:32 DC Cetirizine HCl (ZyrTEC) 10 mg DAILY PO 02/25/21 09:00 03/02/21 08:43 Melatonin (Melatonin) 3 mg QHS PO 02/24/21 21:00 03/01/21 19:42 Nystatin (Nystop) 1 alis PRN BID PRN TP groin irritation/yeast 02/24/21 23:00 02/25/21 05:10 Vitamin D (Vitamin D3) 1,000 unit DAILY PO 02/25/21 10:45 03/02/21 08:44 Divalproex Sodium (Depakote Sprinkles) 125 mg 0900,1700 PO 03/01/21 09:00 03/02/21 08:44 I have reviewed the current psychotropics carefully including drug interactions. Risk benefit ratio favors no change other than as noted in my dictated progress note. Diagnosis: Problems: (1) Dementia with behavioral disturbance (2) Impulse control disorder, unspecified (3) Anxiety disorder, unspecified (4) Dementia, vascular, with depression (5) Dementia, vascular, with delusions (6) Dementia in Alzheimer's disease with depression (7) Dementia in Alzheimer's disease with delusions (8) Major neurocognitive disorder JENNIFER HANSON MD Mar 02, 2021 10:23
--- NOTE | 2021-03-02 10:29 | PDOC ---
Exam Note: Jack Note: Late entry for 03/01/21. Please also refer to the separate dictated note~for this date of service dictated separately.~Patient seen individually. Discussed the patient with Nursing staff reviewed the chart.~Reviewed interim history and current functioning. Reviewed vital signs,~Labs/ Radiology~and current medicat ions noted below. Continue current treatment with the changes noted in the dictated addendum note Assessment: Vital Signs/I&O: Vital Signs Date Time Temp Pulse Resp B/P (MAP) Pulse Ox O2 Delivery O2 Flow Rate FiO2 03/02/21 08:44 52 124/74 03/02/21 06:18 96.8 16 92 Room Air I & O 03/01/21 03/01/21 03/02/21 15:00 23:00 07:00 Intake Total 740 ml 480 ml Balance 740 ml 480 ml Current Medications: Meds: Current Medications Medications (Trade) Dose Ordered Sig/Geoffrey Route PRN Reason Start Time Stop Time Status Last Admin Dose Admin Acetaminophen (Tylenol) 650 mg PRN Q6HRS PRN PO MILD PAIN / TEMP > 100.3'F 02/24/21 16:45 Multi-Ingredient Ointment (Analgesic [place]) 1 alis PRN QID PRN TP MUSCLE PAIN 02/24/21 16:45 Al Hydroxide/Mg Hydroxide (Mylanta Plus Xs) 15 ml PRN AFTMEALHC PRN PO DYSPEPSIA 02/24/21 16:45 Magnesium Hydroxide (Milk Of Magnesia) 2,400 mg PRN QHS PRN PO CONSTIPATION 02/24/21 16:45 Diclofenac Sodium (Voltaren) 1 alis BID TP 02/24/21 21:00 03/01/21 09:40 Donepezil HCl (Aricept) 15 mg HS PO 02/24/21 21:00 03/01/21 19:42 Lisinopril (Prinivil) 10 mg DAILY PO 02/25/21 09:00 03/02/21 08:43 Memantine (Namenda) 10 mg BID PO 02/24/21 21:00 03/02/21 08:43 Metoprolol Succinate (Toprol Xl) 50 mg HS PO 02/24/21 21:00 03/01/21 19:41 Nifedipine (Procardia Xl) 30 mg DAILY PO 02/25/21 09:00 03/02/21 08:44 Quetiapine Fumarate (SEROquel) 25 mg BID PO 02/24/21 21:00 03/02/21 08:44 Sertraline HCl (Zoloft) 50 mg DAILY PO 02/25/21 09:00 03/02/21 08:44 Artificial Tears (Refresh Classic) 1 drop BID OU 02/24/21 21:00 03/02/21 08:44 Vitamin D (Vitamin D3) 25 unit DAILY PO 02/25/21 09:00 02/25/21 10:32 DC Cetirizine HCl (ZyrTEC) 10 mg DAILY PO 02/25/21 09:00 03/02/21 08:43 Melatonin (Melatonin) 3 mg QHS PO 02/24/21 21:00 03/01/21 19:42 Nystatin (Nystop) 1 alis PRN BID PRN TP groin irritation/yeast 02/24/21 23:00 02/25/21 05:10 Vitamin D (Vitamin D3) 1,000 unit DAILY PO 02/25/21 10:45 03/02/21 08:44 Divalproex Sodium (Depakote Sprinkles) 125 mg 0900,1700 PO 03/01/21 09:00 03/02/21 08:44 I have reviewed the current psychotropics carefully including drug interactions. Risk benefit ratio favors no change other than as noted in my dictated progress note. Diagnosis: Problems: (1) Dementia with behavioral disturbance (2) Impulse control disorder, unspecified (3) Anxiety disorder, unspecified (4) Dementia, vascular, with depression (5) Dementia, vascular, with delusions (6) Dementia in Alzheimer's disease with depression (7) Dementia in Alzheimer's disease with delusions (8) Major neurocognitive disorder JENNIFER HANSON MD Mar 02, 2021 10:29
[2021-03-02 16:13] VITALS: BP 142/88
[2021-03-02] MEDS: MELATONIN 3 MG TABLET PO SCH (19:46)
[2021-03-02] MEDS: DONEPEZIL HCL 5 MG TABLET. PO SCH (19:47)
[2021-03-02] MEDS: METOPROLOL SUCC 24HR ER 50 MG TAB.ER.24H. PO SCH (19:48)
[2021-03-02] MEDS: DICLOFENAC SODIUM 1% TOPICAL GEL 100GM TUBE. TP SCH (19:49)
[2021-03-03 05:57] VITALS: BP 92/55
--- NOTE | 2021-03-03 08:38 | PDOC ---
Exam Note: Jack Note: This note is a late entry for 02/28/2021 covers elements not covered in my initial note. Subjective: The patient was seen individually in the evening of 02/28/2021 with Tico STEVENSON, discussed and reviewed the chart. The patient slept 7-1/2 hours previous night. Patient remains confused, not agitated or aggressive. She spends time with another demented patient. She has not been sexually aggressive. Review of Systems: No CV, , pulmonary, eye, ENT system symptoms on review. Reliability poor. Mental Status Exam: The patient is oriented to herself. Insight and judgement, recent and remote memory, attention and concentration, fund of knowledge is poor consistent with her diagnoses. Laboratory Data: Reviewed. Impression: Major neurocognitive disorder Alzheimer, vascular with delusions, depression, behavioral disturbance. Anxiety disorder unspecified. Impulse control disorder unspecified. Plan: Continue current psychotropics mentioned in my initial note. Start Depakote Sprinkle 125 mg 9 a.m. and 5 p.m. Check CBC, CMP, valproic acid level in 3 days. Adjust to reach therapeutic level. Rest unchanged for now. Assessment: Vital Signs/I&O: Vital Signs Date Time Temp Pulse Resp B/P (MAP) Pulse Ox O2 Delivery O2 Flow Rate FiO2 03/03/21 05:57 97.5 63 16 92/55 (67) 92 03/02/21 06:18 Room Air I & O 03/02/21 03/02/21 03/03/21 15:00 23:00 07:00 Intake Total 600 ml 720 ml Balance 600 ml 720 ml Current Medications: Meds: Current Medications Medications (Trade) Dose Ordered Sig/Geoffrey Route PRN Reason Start Time Stop Time Status Last Admin Dose Admin Acetaminophen (Tylenol) 650 mg PRN Q6HRS PRN PO MILD PAIN / TEMP > 100.3'F 02/24/21 16:45 Multi-Ingredient Ointment (Analgesic [place]) 1 alis PRN QID PRN TP MUSCLE PAIN 02/24/21 16:45 Al Hydroxide/Mg Hydroxide (Mylanta Plus Xs) 15 ml PRN AFTMEALHC PRN PO DYSPEPSIA 02/24/21 16:45 Magnesium Hydroxide (Milk Of Magnesia) 2,400 mg PRN QHS PRN PO CONSTIPATION 02/24/21 16:45 Diclofenac Sodium (Voltaren) 1 alis BID TP 02/24/21 21:00 03/02/21 19:49 Donepezil HCl (Aricept) 15 mg HS PO 02/24/21 21:00 03/02/21 19:47 Lisinopril (Prinivil) 10 mg DAILY PO 02/25/21 09:00 03/02/21 08:43 Memantine (Namenda) 10 mg BID PO 02/24/21 21:00 03/02/21 19:48 Metoprolol Succinate (Toprol Xl) 50 mg HS PO 02/24/21 21:00 03/02/21 19:48 Nifedipine (Procardia Xl) 30 mg DAILY PO 02/25/21 09:00 03/02/21 08:44 Quetiapine Fumarate (SEROquel) 25 mg BID PO 02/24/21 21:00 03/02/21 19:48 Sertraline HCl (Zoloft) 50 mg DAILY PO 02/25/21 09:00 03/02/21 08:44 Artificial Tears (Refresh Classic) 1 drop BID OU 02/24/21 21:00 03/02/21 19:46 Vitamin D (Vitamin D3) 25 unit DAILY PO 02/25/21 09:00 02/25/21 10:32 DC Cetirizine HCl (ZyrTEC) 10 mg DAILY PO 02/25/21 09:00 03/02/21 08:43 Melatonin (Melatonin) 3 mg QHS PO 02/24/21 21:00 03/02/21 19:46 Nystatin (Nystop) 1 alis PRN BID PRN TP groin irritation/yeast 02/24/21 23:00 02/25/21 05:10 Vitamin D (Vitamin D3) 1,000 unit DAILY PO 02/25/21 10:45 03/02/21 08:44 Divalproex Sodium (Depakote Sprinkles) 125 mg 0900,1700 PO 03/01/21 09:00 03/02/21 17:33 I have reviewed the current psychotropics carefully including drug interactions. Risk benefit ratio favors no change other than as noted in my dictated progress note. Diagnosis: Problems: (1) Dementia with behavioral disturbance (2) Impulse control disorder, unspecified (3) Anxiety disorder, unspecified (4) Dementia, vascular, with depression (5) Dementia, vascular, with delusions (6) Dementia in Alzheimer's disease with depression (7) Dementia in Alzheimer's disease with delusions (8) Major neurocognitive disorder JENNIFER HANSON MD Mar 03, 2021 08:38
[2021-03-03] MEDS: QUEtiapine 25 MG TABLET. PO SCH ×2 (08:39→19:44)
[2021-03-03] MEDS: DIVALPROEX 125 MG CAP.SPRINK PO SCH ×2 (08:40→17:30)
[2021-03-03] MEDS: MEMANTINE 10 MG TABLET. PO SCH ×2 (08:40→19:44)
[2021-03-03] MEDS: CETIRIZINE HCL 10 MG TABLET PO SCH (08:40)
[2021-03-03] MEDS: LISINOPRIL 10 MG TABLET PO SCH (08:40)
[2021-03-03] MEDS: SERTRALINE 50 MG TABLET. PO SCH (08:40)
[2021-03-03] MEDS: POLYVINYL ALCOHOL/POVIDONE/PF OPHTH SOLUTION DROPERETTE. OU SCH ×2 (08:40→19:44)
[2021-03-03] MEDS: CHOLECALCIFEROL (VITAMIN D3) 1,000 UNIT TABLET PO SCH (08:40)
[2021-03-03] MEDS: DICLOFENAC SODIUM 1% TOPICAL GEL 100GM TUBE. TP SCH ×2 (08:41→19:47)
--- NOTE | 2021-03-03 08:51 | PDOC ---
Exam Note: Jack Note: This note is a late entry for 03/01/2021 covers elements not covered in my initial note. Subjective: The patient was seen individually in the evening of 03/01/2021 with Tico STEVENSON, discussed and reviewed the chart. The patient slept 7 hours previous night. Overall the patient remains withdrawn. No inappropriate sexual behaviors noted or aggression. I met with her in her room. Review of Systems: No CV, , pulmonary, eye, ENT system symptoms on review. Reliability poor. Mental Status Exam: The patient is oriented to herself. Insight and judgement, recent and remote memory, attention and concentration, fund of knowledge is poor consistent with her diagnoses. Laboratory Data: Reviewed. Impression: Major neurocognitive disorder Alzheimer, vascular with delusions, depression, behavioral disturbance. Anxiety disorder unspecified. Impulse control disorder unspecified. Plan: Continue current psychotropics mentioned in my initial note. Assessment: Vital Signs/I&O: Vital Signs Date Time Temp Pulse Resp B/P (MAP) Pulse Ox O2 Delivery O2 Flow Rate FiO2 03/03/21 08:41 63 92/55 03/03/21 05:57 97.5 16 92 03/02/21 06:18 Room Air I & O 03/02/21 03/02/21 03/03/21 15:00 23:00 07:00 Intake Total 600 ml 720 ml Balance 600 ml 720 ml Current Medications: Meds: Current Medications Medications (Trade) Dose Ordered Sig/Geoffrey Route PRN Reason Start Time Stop Time Status Last Admin Dose Admin Acetaminophen (Tylenol) 650 mg PRN Q6HRS PRN PO MILD PAIN / TEMP > 100.3'F 02/24/21 16:45 Multi-Ingredient Ointment (Analgesic [place]) 1 alis PRN QID PRN TP MUSCLE PAIN 02/24/21 16:45 Al Hydroxide/Mg Hydroxide (Mylanta Plus Xs) 15 ml PRN AFTMEALHC PRN PO DYSPEPSIA 02/24/21 16:45 Magnesium Hydroxide (Milk Of Magnesia) 2,400 mg PRN QHS PRN PO CONSTIPATION 02/24/21 16:45 Diclofenac Sodium (Voltaren) 1 alis BID TP 02/24/21 21:00 03/03/21 08:41 Donepezil HCl (Aricept) 15 mg HS PO 02/24/21 21:00 03/02/21 19:47 Lisinopril (Prinivil) 10 mg DAILY PO 02/25/21 09:00 03/02/21 08:43 Memantine (Namenda) 10 mg BID PO 02/24/21 21:00 03/03/21 08:40 Metoprolol Succinate (Toprol Xl) 50 mg HS PO 02/24/21 21:00 03/02/21 19:48 Nifedipine (Procardia Xl) 30 mg DAILY PO 02/25/21 09:00 03/02/21 08:44 Quetiapine Fumarate (SEROquel) 25 mg BID PO 02/24/21 21:00 03/03/21 08:39 Sertraline HCl (Zoloft) 50 mg DAILY PO 02/25/21 09:00 03/03/21 08:40 Artificial Tears (Refresh Classic) 1 drop BID OU 02/24/21 21:00 03/03/21 08:40 Vitamin D (Vitamin D3) 25 unit DAILY PO 02/25/21 09:00 02/25/21 10:32 DC Cetirizine HCl (ZyrTEC) 10 mg DAILY PO 02/25/21 09:00 03/03/21 08:40 Melatonin (Melatonin) 3 mg QHS PO 02/24/21 21:00 03/02/21 19:46 Nystatin (Nystop) 1 alis PRN BID PRN TP groin irritation/yeast 02/24/21 23:00 02/25/21 05:10 Vitamin D (Vitamin D3) 1,000 unit DAILY PO 02/25/21 10:45 03/03/21 08:40 Divalproex Sodium (Depakote Sprinkles) 125 mg 0900,1700 PO 03/01/21 09:00 03/03/21 08:40 I have reviewed the current psychotropics carefully including drug interactions. Risk benefit ratio favors no change other than as noted in my dictated progress note. Diagnosis: Problems: (1) Dementia with behavioral disturbance (2) Impulse control disorder, unspecified (3) Anxiety disorder, unspecified (4) Dementia, vascular, with depression (5) Dementia, vascular, with delusions (6) Dementia in Alzheimer's disease with depression (7) Dementia in Alzheimer's disease with delusions (8) Major neurocognitive disorder JENNIFER HANSON MD Mar 03, 2021 08:51
--- NOTE | 2021-03-03 09:11 | PDOC ---
Exam Note: Jack Note: Late entry for 03/02/2021. Please also refer to the separate dictated note~for this date of service dictated separately. Discussed the patient with Nursing staff reviewed the chart.~Reviewed interim history and current functioning. Reviewed vital signs,~Labs/ Radiology~and current medications noted below. Continue current treatment with the changes noted in the dictated addendum note Assessment: Vital Signs/I&O: Vital Signs Date Time Temp Pulse Resp B/P (MAP) Pulse Ox O2 Delivery O2 Flow Rate FiO2 03/03/21 08:41 63 92/55 03/03/21 05:57 97.5 16 92 03/02/21 06:18 Room Air I & O 03/02/21 03/02/21 03/03/21 15:00 23:00 07:00 Intake Total 600 ml 720 ml Balance 600 ml 720 ml Current Medications: Meds: Current Medications Medications (Trade) Dose Ordered Sig/Geoffrey Route PRN Reason Start Time Stop Time Status Last Admin Dose Admin Acetaminophen (Tylenol) 650 mg PRN Q6HRS PRN PO MILD PAIN / TEMP > 100.3'F 02/24/21 16:45 Multi-Ingredient Ointment (Analgesic [place]) 1 alis PRN QID PRN TP MUSCLE PAIN 02/24/21 16:45 Al Hydroxide/Mg Hydroxide (Mylanta Plus Xs) 15 ml PRN AFTMEALHC PRN PO DYSPEPSIA 02/24/21 16:45 Magnesium Hydroxide (Milk Of Magnesia) 2,400 mg PRN QHS PRN PO CONSTIPATION 02/24/21 16:45 Diclofenac Sodium (Voltaren) 1 alis BID TP 02/24/21 21:00 03/03/21 08:41 Donepezil HCl (Aricept) 15 mg HS PO 02/24/21 21:00 03/02/21 19:47 Lisinopril (Prinivil) 10 mg DAILY PO 02/25/21 09:00 03/02/21 08:43 Memantine (Namenda) 10 mg BID PO 02/24/21 21:00 03/03/21 08:40 Metoprolol Succinate (Toprol Xl) 50 mg HS PO 02/24/21 21:00 03/02/21 19:48 Nifedipine (Procardia Xl) 30 mg DAILY PO 02/25/21 09:00 03/02/21 08:44 Quetiapine Fumarate (SEROquel) 25 mg BID PO 02/24/21 21:00 03/03/21 08:39 Sertraline HCl (Zoloft) 50 mg DAILY PO 02/25/21 09:00 03/03/21 08:40 Artificial Tears (Refresh Classic) 1 drop BID OU 02/24/21 21:00 03/03/21 08:40 Vitamin D (Vitamin D3) 25 unit DAILY PO 02/25/21 09:00 02/25/21 10:32 DC Cetirizine HCl (ZyrTEC) 10 mg DAILY PO 02/25/21 09:00 03/03/21 08:40 Melatonin (Melatonin) 3 mg QHS PO 02/24/21 21:00 03/02/21 19:46 Nystatin (Nystop) 1 alis PRN BID PRN TP groin irritation/yeast 02/24/21 23:00 02/25/21 05:10 Vitamin D (Vitamin D3) 1,000 unit DAILY PO 02/25/21 10:45 03/03/21 08:40 Divalproex Sodium (Depakote Sprinkles) 125 mg 0900,1700 PO 03/01/21 09:00 03/03/21 08:40 I have reviewed the current psychotropics carefully including drug interactions. Risk benefit ratio favors no change other than as noted in my dictated progress note. Diagnosis: Problems: (1) Dementia with behavioral disturbance (2) Impulse control disorder, unspecified (3) Anxiety disorder, unspecified (4) Dementia, vascular, with depression (5) Dementia, vascular, with delusions (6) Dementia in Alzheimer's disease with depression (7) Dementia in Alzheimer's disease with delusions (8) Major neurocognitive disorder JENNIFER HANSON MD Mar 03, 2021 09:11
[2021-03-03 15:49] VITALS: BP 136/90
[2021-03-03] MEDS: DONEPEZIL HCL 5 MG TABLET. PO SCH (19:44)
[2021-03-03] MEDS: MELATONIN 3 MG TABLET PO SCH (19:45)
[2021-03-03] MEDS: METOPROLOL SUCC 24HR ER 50 MG TAB.ER.24H. PO SCH (19:45)
--- NOTE | 2021-03-03 21:47 | PDOC ---
Exam Note: Jack Note: Please also refer to the separate dictated note~for this date of service dictated separately.~Patient seen individually. Discussed the patient with Nursing staff reviewed the chart.~Reviewed interim history and current functioning. Reviewed vital signs,~Labs/ Radiology~and current medications noted below. Continue current treatment with the changes noted in the dictated addendum note Assessment: Vital Signs/I&O: Vital Signs Date Time Temp Pulse Resp B/P (MAP) Pulse Ox O2 Delivery O2 Flow Rate FiO2 03/03/21 19:45 58 136/90 03/03/21 15:49 98.5 16 92 03/02/21 06:18 Room Air I & O 03/02/21 03/02/21 03/03/21 15:00 23:00 07:00 Intake Total 600 ml 720 ml Balance 600 ml 720 ml Current Medications: Meds: Current Medications Medications (Trade) Dose Ordered Sig/Geoffrey Route PRN Reason Start Time Stop Time Status Last Admin Dose Admin Acetaminophen (Tylenol) 650 mg PRN Q6HRS PRN PO MILD PAIN / TEMP > 100.3'F 02/24/21 16:45 Multi-Ingredient Ointment (Analgesic [place]) 1 alis PRN QID PRN TP MUSCLE PAIN 02/24/21 16:45 Al Hydroxide/Mg Hydroxide (Mylanta Plus Xs) 15 ml PRN AFTMEALHC PRN PO DYSPEPSIA 02/24/21 16:45 Magnesium Hydroxide (Milk Of Magnesia) 2,400 mg PRN QHS PRN PO CONSTIPATION 02/24/21 16:45 Diclofenac Sodium (Voltaren) 1 alis BID TP 02/24/21 21:00 03/03/21 19:47 Donepezil HCl (Aricept) 15 mg HS PO 02/24/21 21:00 03/03/21 19:44 Lisinopril (Prinivil) 10 mg DAILY PO 02/25/21 09:00 03/02/21 08:43 Memantine (Namenda) 10 mg BID PO 02/24/21 21:00 03/03/21 19:44 Metoprolol Succinate (Toprol Xl) 50 mg HS PO 02/24/21 21:00 03/03/21 19:45 Nifedipine (Procardia Xl) 30 mg DAILY PO 02/25/21 09:00 03/02/21 08:44 Quetiapine Fumarate (SEROquel) 25 mg BID PO 02/24/21 21:00 03/03/21 19:44 Sertraline HCl (Zoloft) 50 mg DAILY PO 02/25/21 09:00 03/03/21 08:40 Artificial Tears (Refresh Classic) 1 drop BID OU 02/24/21 21:00 03/03/21 19:44 Vitamin D (Vitamin D3) 25 unit DAILY PO 02/25/21 09:00 02/25/21 10:32 DC Cetirizine HCl (ZyrTEC) 10 mg DAILY PO 02/25/21 09:00 03/03/21 08:40 Melatonin (Melatonin) 3 mg QHS PO 02/24/21 21:00 03/03/21 19:45 Nystatin (Nystop) 1 alis PRN BID PRN TP groin irritation/yeast 02/24/21 23:00 02/25/21 05:10 Vitamin D (Vitamin D3) 1,000 unit DAILY PO 02/25/21 10:45 03/03/21 08:40 Divalproex Sodium (Depakote Sprinkles) 125 mg 0900,1700 PO 03/01/21 09:00 03/03/21 17:30 I have reviewed the current psychotropics carefully including drug interactions. Risk benefit ratio favors no change other than as noted in my dictated progress note. Diagnosis: Problems: (1) Dementia with behavioral disturbance (2) Impulse control disorder, unspecified (3) Anxiety disorder, unspecified (4) Dementia, vascular, with depression (5) Dementia, vascular, with delusions (6) Dementia in Alzheimer's disease with depression (7) Dementia in Alzheimer's disease with delusions (8) Major neurocognitive disorder JENNIFER HANSON MD Mar 03, 2021 21:47
[2021-03-04 05:40] VITALS: BP 147/85
[2021-03-04] MEDS: LISINOPRIL 10 MG TABLET PO SCH (07:59)
[2021-03-04] MEDS: CETIRIZINE HCL 10 MG TABLET PO SCH (07:59)
[2021-03-04] MEDS: POLYVINYL ALCOHOL/POVIDONE/PF OPHTH SOLUTION DROPERETTE. OU SCH ×2 (08:00→19:37)
[2021-03-04] MEDS: DIVALPROEX 125 MG CAP.SPRINK PO SCH ×2 (08:00→17:13)
[2021-03-04] MEDS: MEMANTINE 10 MG TABLET. PO SCH ×2 (08:00→19:39)
[2021-03-04] MEDS: CHOLECALCIFEROL (VITAMIN D3) 1,000 UNIT TABLET PO SCH (08:00)
[2021-03-04] MEDS: QUEtiapine 25 MG TABLET. PO SCH ×2 (08:00→19:39)
[2021-03-04] MEDS: SERTRALINE 50 MG TABLET. PO SCH (08:00)
--- NOTE | 2021-03-04 08:38 | PDOC ---
Exam Note: Jack Note: This note is a late entry for 03/03/2021 covers elements not covered in my initial note. Subjective: The patient was seen individually in the evening of 03/03/2021 with Carolyn STEVENSON, discussed and reviewed the chart. The patient slept 7-1/4 hours previous night. She did well previous evening. She was not undressing in the evening but today during the day she was overtly friendly with one of the other male patients and was quite angry, upset when nursing staff intervened to separate the two. In fact she brought this up when I met with her late this evening and seemed to remember but when I questioned her on the specifics of the incident she did not know the detail, which is understandable given her dementia. I had discussed the patient with Tico STEVENSON additionally on 03/02. Review of Systems: Hard of hearing. No CV, , pulmonary, eye system symptoms on review. Mental Status Exam: The patient is oriented to herself, somewhat anxious, agitated about the above but then better at the end of the visit. I met with her in her room. Insight and judgement, recent and remote memory, attention and concentration, fund of knowledge is poor consistent with her diagnoses. Laboratory Data: Reviewed. Impression: Major neurocognitive disorder Alzheimer, vascular with delusions, depression, behavioral disturbance. Anxiety disorder unspecified. Impulse control disorder unspecified. Plan: Continue current psychotropics mentioned in my initial note, Aricept, melatonin, Namenda, Seroquel, Zoloft and Depakote. Check valproic acid level in the morning and then adjust Depakote to reach therapeutic level. Assessment: Vital Signs/I&O: Vital Signs Date Time Temp Pulse Resp B/P (MAP) Pulse Ox O2 Delivery O2 Flow Rate FiO2 03/04/21 08:00 58 147/85 03/04/21 05:40 97.4 18 95 03/02/21 06:18 Room Air I & O 03/03/21 03/03/21 03/04/21 15:00 23:00 07:00 Intake Total 720 ml 240 ml 360 ml Balance 720 ml 240 ml 360 ml Current Medications: Meds: Current Medications Medications (Trade) Dose Ordered Sig/Geoffrey Route PRN Reason Start Time Stop Time Status Last Admin Dose Admin Acetaminophen (Tylenol) 650 mg PRN Q6HRS PRN PO MILD PAIN / TEMP > 100.3'F 02/24/21 16:45 Multi-Ingredient Ointment (Analgesic [place]) 1 alis PRN QID PRN TP MUSCLE PAIN 02/24/21 16:45 Al Hydroxide/Mg Hydroxide (Mylanta Plus Xs) 15 ml PRN AFTMEALHC PRN PO DYSPEPSIA 02/24/21 16:45 Magnesium Hydroxide (Milk Of Magnesia) 2,400 mg PRN QHS PRN PO CONSTIPATION 02/24/21 16:45 Diclofenac Sodium (Voltaren) 1 alis BID TP 02/24/21 21:00 03/03/21 19:47 Donepezil HCl (Aricept) 15 mg HS PO 02/24/21 21:00 03/03/21 19:44 Lisinopril (Prinivil) 10 mg DAILY PO 02/25/21 09:00 03/04/21 07:59 Memantine (Namenda) 10 mg BID PO 02/24/21 21:00 03/04/21 08:00 Metoprolol Succinate (Toprol Xl) 50 mg HS PO 02/24/21 21:00 03/03/21 19:45 Nifedipine (Procardia Xl) 30 mg DAILY PO 02/25/21 09:00 03/04/21 08:00 Quetiapine Fumarate (SEROquel) 25 mg BID PO 02/24/21 21:00 03/04/21 08:00 Sertraline HCl (Zoloft) 50 mg DAILY PO 02/25/21 09:00 03/04/21 08:00 Artificial Tears (Refresh Classic) 1 drop BID OU 02/24/21 21:00 03/04/21 08:00 Vitamin D (Vitamin D3) 25 unit DAILY PO 02/25/21 09:00 02/25/21 10:32 DC Cetirizine HCl (ZyrTEC) 10 mg DAILY PO 02/25/21 09:00 03/04/21 07:59 Melatonin (Melatonin) 3 mg QHS PO 02/24/21 21:00 03/03/21 19:45 Nystatin (Nystop) 1 alis PRN BID PRN TP groin irritation/yeast 02/24/21 23:00 02/25/21 05:10 Vitamin D (Vitamin D3) 1,000 unit DAILY PO 02/25/21 10:45 03/04/21 08:00 Divalproex Sodium (Depakote Sprinkles) 125 mg 0900,1700 PO 03/01/21 09:00 03/04/21 08:00 I have reviewed the current psychotropics carefully including drug interactions. Risk benefit ratio favors no change other than as noted in my dictated progress note. Diagnosis: Problems: (1) Dementia with behavioral disturbance (2) Impulse control disorder, unspecified (3) Anxiety disorder, unspecified (4) Dementia, vascular, with depression (5) Dementia, vascular, with delusions (6) Dementia in Alzheimer's disease with depression (7) Dementia in Alzheimer's disease with delusions (8) Major neurocognitive disorder JENNIFER HANSON MD Mar 04, 2021 08:38
[2021-03-04] MEDS: DICLOFENAC SODIUM 1% TOPICAL GEL 100GM TUBE. TP SCH ×2 (09:00→19:40)
[2021-03-04 14:50] LABS: BASO # 0.1 x10^3/uL (0.0-0.2); BASO % 1 % (0-3); EOS # 0.2 x10^3/uL (0.0-0.7); EOS % 4 % (0-3); HEMATOCRIT 42.5 % (36.0-47.0); HEMOGLOBIN 13.9 g/dL (12.0-15.5); LYMPH # 1.5 x10^3/uL (1.0-4.8); LYMPH % 26 % (24-48); MEAN CORPUSCULAR HEMOGLOBIN 30 pg (25-35); MEAN CORPUSCULAR HGB CONC 33 g/dL (31-37); MEAN CORPUSCULAR VOLUME 91 fL (79-100); MONO # 0.4 x10^3/uL (0.0-1.1); MONO % 7 % (0-9); NEUT # 3.6 x10^3uL (1.8-7.7); NEUT % 62 % (31-73); PLATELET COUNT 163 x10^3/uL (140-400); RED BLOOD COUNT 4.66 x10^6/uL (3.50-5.40); RED CELL DISTRIBUTION WIDTH 14.2 % (11.5-14.5); WHITE BLOOD COUNT 5.9 x10^3/uL (4.0-11.0)
[2021-03-04 15:13] LABS: ALBUMIN 3.5 g/dL (3.4-5.0); ALBUMIN/GLOBULIN RATIO 0.8 (1.0-1.7); ALK PHOS 67 U/L (46-116); ALT (SGPT) 31 U/L (14-59); ANION GAP 8 (6-14); AST (SGOT) 24 U/L (15-37); BLOOD UREA NITROGEN 20 mg/dL (7-20); BUN/CREATININE RATIO 20 (6-20); CARBON DIOXIDE 24 mmol/L (21-32); CHLORIDE 102 mmol/L (98-107); GFR 53.5; GLUCOSE 132 mg/dL (70-99); POTASSIUM 4.1 mmol/L (3.5-5.1); SODIUM 134 mmol/L (136-145); TOTAL BILIRUBIN 0.3 mg/dL (0.2-1.0)
[2021-03-04 15:16] LABS: VAL ACID 34 mcg/mL (50-100)
[2021-03-04 15:47] VITALS: BP 143/74
[2021-03-04] MEDS: DONEPEZIL HCL 5 MG TABLET. PO SCH (19:37)
[2021-03-04] MEDS: MELATONIN 3 MG TABLET PO SCH (19:39)
[2021-03-04] MEDS: METOPROLOL SUCC 24HR ER 50 MG TAB.ER.24H. PO SCH (19:39)
--- NOTE | 2021-03-04 22:20 | PDOC ---
Exam Note: Jack Note: Please also refer to the separate dictated note~for this date of service dictated separately.~Patient seen individually. Discussed the patient with Nursing staff reviewed the chart.~Reviewed interim history and current functioning. Reviewed vital signs,~Labs/ Radiology~and current medications noted below. Continue current treatment with the changes noted in the dictated addendum note Assessment: Vital Signs/I&O: Vital Signs Date Time Temp Pulse Resp B/P (MAP) Pulse Ox O2 Delivery O2 Flow Rate FiO2 03/04/21 19:39 60 143/74 03/04/21 15:47 97.7 17 94 03/02/21 06:18 Room Air I & O 03/03/21 03/03/21 03/04/21 15:00 23:00 07:00 Intake Total 720 ml 240 ml 360 ml Balance 720 ml 240 ml 360 ml Labs: Laboratory Tests Test 03/04/21 14:25 White Blood Count 5.9 x10^3/uL (4.0-11.0) Red Blood Count 4.66 x10^6/uL (3.50-5.40) Hemoglobin 13.9 g/dL (12.0-15.5) Hematocrit 42.5 % (36.0-47.0) Mean Corpuscular Volume 91 fL (79-100) Mean Corpuscular Hemoglobin 30 pg (25-35) Mean Corpuscular Hemoglobin Concent 33 g/dL (31-37) Red Cell Distribution Width 14.2 % (11.5-14.5) Platelet Count 163 x10^3/uL (140-400) Neutrophils (%) (Auto) 62 % (31-73) Lymphocytes (%) (Auto) 26 % (24-48) Monocytes (%) (Auto) 7 % (0-9) Eosinophils (%) (Auto) 4 % (0-3) H Basophils (%) (Auto) 1 % (0-3) Neutrophils # (Auto) 3.6 x10^3uL (1.8-7.7) Lymphocytes # (Auto) 1.5 x10^3/uL (1.0-4.8) Monocytes # (Auto) 0.4 x10^3/uL (0.0-1.1) Eosinophils # (Auto) 0.2 x10^3/uL (0.0-0.7) Basophils # (Auto) 0.1 x10^3/uL (0.0-0.2) Sodium Level 134 mmol/L (136-145) L Potassium Level 4.1 mmol/L (3.5-5.1) Chloride Level 102 mmol/L (98-107) Carbon Dioxide Level 24 mmol/L (21-32) Anion Gap 8 (6-14) Blood Urea Nitrogen 20 mg/dL (7-20) Creatinine 1.0 mg/dL (0.6-1.0) Estimated GFR (Cockcroft-Gault) 53.5 BUN/Creatinine Ratio 20 (6-20) Glucose Level 132 mg/dL (70-99) H Calcium Level 9.0 mg/dL (8.5-10.1) Total Bilirubin 0.3 mg/dL (0.2-1.0) Aspartate Amino Transferase (AST) 24 U/L (15-37) Alanine Aminotransferase (ALT) 31 U/L (14-59) Alkaline Phosphatase 67 U/L (46-116) Total Protein 8.0 g/dL (6.4-8.2) Albumin 3.5 g/dL (3.4-5.0) Albumin/Globulin Ratio 0.8 (1.0-1.7) L Valproic Acid Level 34 mcg/mL (50-100) L Valproic Acid Last Dose Date 03/03/21 Valproic Acid Last Dose Time 1700 Current Medications: Meds: Laboratory Tests Test 03/04/21 14:25 White Blood Count 5.9 x10^3/uL Red Blood Count 4.66 x10^6/uL Hemoglobin 13.9 g/dL Hematocrit 42.5 % Mean Corpuscular Volume 91 fL Mean Corpuscular Hemoglobin 30 pg Mean Corpuscular Hemoglobin Concent 33 g/dL Red Cell Distribution Width 14.2 % Platelet Count 163 x10^3/uL Neutrophils (%) (Auto) 62 % Lymphocytes (%) (Auto) 26 % Monocytes (%) (Auto) 7 % Eosinophils (%) (Auto) 4 % Basophils (%) (Auto) 1 % Neutrophils # (Auto) 3.6 x10^3uL Lymphocytes # (Auto) 1.5 x10^3/uL Monocytes # (Auto) 0.4 x10^3/uL Eosinophils # (Auto) 0.2 x10^3/uL Basophils # (Auto) 0.1 x10^3/uL Sodium Level 134 mmol/L Potassium Level 4.1 mmol/L Chloride Level 102 mmol/L Carbon Dioxide Level 24 mmol/L Anion Gap 8 Blood Urea Nitrogen 20 mg/dL Creatinine 1.0 mg/dL Estimated GFR (Cockcroft-Gault) 53.5 BUN/Creatinine Ratio 20 Glucose Level 132 mg/dL Calcium Level 9.0 mg/dL Total Bilirubin 0.3 mg/dL Aspartate Amino Transf (AST/SGOT) 24 U/L Alanine Aminotransferase (ALT/SGPT) 31 U/L Alkaline Phosphatase 67 U/L Total Protein 8.0 g/dL Albumin 3.5 g/dL Albumin/Globulin Ratio 0.8 Valproic Acid (Depakene) Level 34 mcg/mL Valproic Acid Last Dose Date 03/03/21 Valproic Acid Last Dose Time 1700 Current Medications Medications (Trade) Dose Ordered Sig/Geoffrey Route PRN Reason Start Time Stop Time Status Last Admin Dose Admin Acetaminophen (Tylenol) 650 mg PRN Q6HRS PRN PO MILD PAIN / TEMP > 100.3'F 02/24/21 16:45 Multi-Ingredient Ointment (Analgesic [place]) 1 alis PRN QID PRN TP MUSCLE PAIN 02/24/21 16:45 Al Hydroxide/Mg Hydroxide (Mylanta Plus Xs) 15 ml PRN AFTMEALHC PRN PO DYSPEPSIA 02/24/21 16:45 Magnesium Hydroxide (Milk Of Magnesia) 2,400 mg PRN QHS PRN PO CONSTIPATION 02/24/21 16:45 Diclofenac Sodium (Voltaren) 1 alis BID TP 02/24/21 21:00 03/04/21 19:40 Donepezil HCl (Aricept) 15 mg HS PO 02/24/21 21:00 03/04/21 19:37 Lisinopril (Prinivil) 10 mg DAILY PO 02/25/21 09:00 03/04/21 07:59 Memantine (Namenda) 10 mg BID PO 02/24/21 21:00 03/04/21 19:39 Metoprolol Succinate (Toprol Xl) 50 mg HS PO 02/24/21 21:00 03/04/21 19:39 Nifedipine (Procardia Xl) 30 mg DAILY PO 02/25/21 09:00 03/04/21 08:00 Quetiapine Fumarate (SEROquel) 25 mg BID PO 02/24/21 21:00 03/04/21 19:39 Sertraline HCl (Zoloft) 50 mg DAILY PO 02/25/21 09:00 03/04/21 08:00 Artificial Tears (Refresh Classic) 1 drop BID OU 02/24/21 21:00 03/04/21 19:37 Vitamin D (Vitamin D3) 25 unit DAILY PO 02/25/21 09:00 02/25/21 10:32 DC Cetirizine HCl (ZyrTEC) 10 mg DAILY PO 02/25/21 09:00 03/04/21 07:59 Melatonin (Melatonin) 3 mg QHS PO 02/24/21 21:00 03/04/21 19:39 Nystatin (Nystop) 1 alis PRN BID PRN TP groin irritation/yeast 02/24/21 23:00 02/25/21 05:10 Vitamin D (Vitamin D3) 1,000 unit DAILY PO 02/25/21 10:45 03/04/21 08:00 Divalproex Sodium (Depakote Sprinkles) 125 mg 0900,1700 PO 03/01/21 09:00 03/04/21 18:15 DC 03/04/21 17:13 Divalproex Sodium (Depakote Sprinkles) 250 mg 0900,1700 PO 03/05/21 09:00 I have reviewed the current psychotropics carefully including drug interactions. Risk benefit ratio favors no change other than as noted in my dictated progress note. Diagnosis: Problems: (1) Dementia with behavioral disturbance (2) Impulse control disorder, unspecified (3) Anxiety disorder, unspecified (4) Dementia, vascular, with depression (5) Dementia, vascular, with delusions (6) Dementia in Alzheimer's disease with depression (7) Dementia in Alzheimer's disease with delusions (8) Major neurocognitive disorder JENNIFER HANSON MD Mar 04, 2021 22:20
[2021-03-05 06:04] VITALS: BP 134/84
[2021-03-05] MEDS: POLYVINYL ALCOHOL/POVIDONE/PF OPHTH SOLUTION DROPERETTE. OU SCH ×2 (08:39→20:38)
[2021-03-05] MEDS: SERTRALINE 50 MG TABLET. PO SCH (08:39)
[2021-03-05] MEDS: MEMANTINE 10 MG TABLET. PO SCH ×2 (08:39→20:38)
[2021-03-05] MEDS: QUEtiapine 25 MG TABLET. PO SCH ×2 (08:39→20:38)
[2021-03-05] MEDS: CHOLECALCIFEROL (VITAMIN D3) 1,000 UNIT TABLET PO SCH (08:39)
[2021-03-05] MEDS: CETIRIZINE HCL 10 MG TABLET PO SCH (08:39)
[2021-03-05] MEDS: DICLOFENAC SODIUM 1% TOPICAL GEL 100GM TUBE. TP SCH ×2 (08:40→20:43)
[2021-03-05] MEDS: DIVALPROEX 125 MG CAP.SPRINK PO SCH ×2 (08:40→17:31)
[2021-03-05] MEDS: LISINOPRIL 10 MG TABLET PO SCH (08:40)
[2021-03-05 15:35] VITALS: BP 135/84
[2021-03-05] MEDS: DONEPEZIL HCL 5 MG TABLET. PO SCH (20:37)
[2021-03-05] MEDS: METOPROLOL SUCC 24HR ER 50 MG TAB.ER.24H. PO SCH (20:38)
[2021-03-05] MEDS: MELATONIN 3 MG TABLET PO SCH (20:38)
--- NOTE | 2021-03-05 21:53 | PDOC ---
Exam Note: Jack Note: Information from date of service 03/02/21 and my information from nursing staff for that date and review of labs and interim progress from 03/02/21 was incorporated into the note of 03/03. This note is a late entry for 03/04/2021 covers elements not covered in my initial note. Subjective: The patient was seen individually in the evening of 03/04/2021 with Carmita STEVENSON, discussed and reviewed the chart. The patient slept 7-1/2 hours previous night. She remains confused but less sexually inappropriate with the male patient as compared to yesterday. Valproic acid level is subtherapeutic at 34 on Depakote Sprinkle 125 mg twice a day. Review of Systems: No CV, , pulmonary, eye system symptoms on review. Reliability poor. Mental Status Exam: The patient is oriented to herself. I met with her in the hallway outside her room. She was pleasant, smiling. Insight and judgement, recent and remote memory, attention and concentration, fund of knowledge is poor consistent with her diagnoses. Laboratory Data: Reviewed. Impression: Major neurocognitive disorder Alzheimer, vascular with delusions, depression, behavioral disturbance. Anxiety disorder unspecified. Impulse control disorder unspecified. Plan: Increase Depakote Sprinkle to 250 mg twice a day. Check CBC, CMP, and valproic acid level in 3 days. Maintain rest of the psychotropics unchanged. Assessment: Vital Signs/I&O: Vital Signs Date Time Temp Pulse Resp B/P (MAP) Pulse Ox O2 Delivery O2 Flow Rate FiO2 03/05/21 20:38 67 135/84 03/05/21 15:35 98.1 18 96 03/02/21 06:18 Room Air I & O 03/04/21 03/04/21 03/05/21 15:00 23:00 07:00 Intake Total 720 ml 620 ml Balance 720 ml 620 ml Current Medications: Meds: Current Medications Medications (Trade) Dose Ordered Sig/Geoffrey Route PRN Reason Start Time Stop Time Status Last Admin Dose Admin Acetaminophen (Tylenol) 650 mg PRN Q6HRS PRN PO MILD PAIN / TEMP > 100.3'F 02/24/21 16:45 Multi-Ingredient Ointment (Analgesic [place]) 1 alis PRN QID PRN TP MUSCLE PAIN 02/24/21 16:45 Al Hydroxide/Mg Hydroxide (Mylanta Plus Xs) 15 ml PRN AFTMEALHC PRN PO DYSPEPSIA 02/24/21 16:45 Magnesium Hydroxide (Milk Of Magnesia) 2,400 mg PRN QHS PRN PO CONSTIPATION 02/24/21 16:45 Diclofenac Sodium (Voltaren) 1 alis BID TP 02/24/21 21:00 03/05/21 20:43 Donepezil HCl (Aricept) 15 mg HS PO 02/24/21 21:00 03/05/21 20:37 Lisinopril (Prinivil) 10 mg DAILY PO 02/25/21 09:00 03/05/21 08:40 Memantine (Namenda) 10 mg BID PO 02/24/21 21:00 03/05/21 20:38 Metoprolol Succinate (Toprol Xl) 50 mg HS PO 02/24/21 21:00 03/05/21 20:38 Nifedipine (Procardia Xl) 30 mg DAILY PO 02/25/21 09:00 03/05/21 08:41 Quetiapine Fumarate (SEROquel) 25 mg BID PO 02/24/21 21:00 03/05/21 20:38 Sertraline HCl (Zoloft) 50 mg DAILY PO 02/25/21 09:00 03/05/21 08:39 Artificial Tears (Refresh Classic) 1 drop BID OU 02/24/21 21:00 03/05/21 20:38 Vitamin D (Vitamin D3) 25 unit DAILY PO 02/25/21 09:00 02/25/21 10:32 DC Cetirizine HCl (ZyrTEC) 10 mg DAILY PO 02/25/21 09:00 03/05/21 08:39 Melatonin (Melatonin) 3 mg QHS PO 02/24/21 21:00 03/05/21 20:38 Nystatin (Nystop) 1 alis PRN BID PRN TP groin irritation/yeast 02/24/21 23:00 02/25/21 05:10 Vitamin D (Vitamin D3) 1,000 unit DAILY PO 02/25/21 10:45 03/05/21 08:39 Divalproex Sodium (Depakote Sprinkles) 125 mg 0900,1700 PO 03/01/21 09:00 03/04/21 18:15 DC 03/04/21 17:13 Divalproex Sodium (Depakote Sprinkles) 250 mg 0900,1700 PO 03/05/21 09:00 03/05/21 17:31 Current Medications Medications (Trade) Dose Ordered Sig/Geoffrey Route PRN Reason Start Time Stop Time Status Last Admin Dose Admin Divalproex Sodium (Depakote Sprinkles) 250 mg 0900,1700 PO 03/05/21 09:00 03/05/21 17:31 I have reviewed the current psychotropics carefully including drug interactions. Risk benefit ratio favors no change other than as noted in my dictated progress note. Diagnosis: Problems: (1) Dementia with behavioral disturbance (2) Impulse control disorder, unspecified (3) Anxiety disorder, unspecified (4) Dementia, vascular, with depression (5) Dementia, vascular, with delusions (6) Dementia in Alzheimer's disease with depression (7) Dementia in Alzheimer's disease with delusions (8) Major neurocognitive disorder JENNIFER HANSON MD Mar 05, 2021 21:53
--- NOTE | 2021-03-05 21:54 | PDOC ---
Exam Note: Jack Note: Please also refer to the separate dictated note~for this date of service dictated separately.~Patient seen individually. Discussed the patient with Nursing staff reviewed the chart.~Reviewed interim history and current functioning. Reviewed vital signs,~Labs/ Radiology~and current medications noted below. Continue current treatment with the changes noted in the dictated addendum note Assessment: Vital Signs/I&O: Vital Signs Date Time Temp Pulse Resp B/P (MAP) Pulse Ox O2 Delivery O2 Flow Rate FiO2 03/05/21 20:38 67 135/84 03/05/21 15:35 98.1 18 96 03/02/21 06:18 Room Air I & O 03/04/21 03/04/21 03/05/21 15:00 23:00 07:00 Intake Total 720 ml 620 ml Balance 720 ml 620 ml Current Medications: Meds: Current Medications Medications (Trade) Dose Ordered Sig/Geoffrey Route PRN Reason Start Time Stop Time Status Last Admin Dose Admin Acetaminophen (Tylenol) 650 mg PRN Q6HRS PRN PO MILD PAIN / TEMP > 100.3'F 02/24/21 16:45 Multi-Ingredient Ointment (Analgesic [place]) 1 alis PRN QID PRN TP MUSCLE PAIN 02/24/21 16:45 Al Hydroxide/Mg Hydroxide (Mylanta Plus Xs) 15 ml PRN AFTMEALHC PRN PO DYSPEPSIA 02/24/21 16:45 Magnesium Hydroxide (Milk Of Magnesia) 2,400 mg PRN QHS PRN PO CONSTIPATION 02/24/21 16:45 Diclofenac Sodium (Voltaren) 1 alis BID TP 02/24/21 21:00 03/05/21 20:43 Donepezil HCl (Aricept) 15 mg HS PO 02/24/21 21:00 03/05/21 20:37 Lisinopril (Prinivil) 10 mg DAILY PO 02/25/21 09:00 03/05/21 08:40 Memantine (Namenda) 10 mg BID PO 02/24/21 21:00 03/05/21 20:38 Metoprolol Succinate (Toprol Xl) 50 mg HS PO 02/24/21 21:00 03/05/21 20:38 Nifedipine (Procardia Xl) 30 mg DAILY PO 02/25/21 09:00 03/05/21 08:41 Quetiapine Fumarate (SEROquel) 25 mg BID PO 02/24/21 21:00 03/05/21 20:38 Sertraline HCl (Zoloft) 50 mg DAILY PO 02/25/21 09:00 03/05/21 08:39 Artificial Tears (Refresh Classic) 1 drop BID OU 02/24/21 21:00 03/05/21 20:38 Vitamin D (Vitamin D3) 25 unit DAILY PO 02/25/21 09:00 02/25/21 10:32 DC Cetirizine HCl (ZyrTEC) 10 mg DAILY PO 02/25/21 09:00 03/05/21 08:39 Melatonin (Melatonin) 3 mg QHS PO 02/24/21 21:00 03/05/21 20:38 Nystatin (Nystop) 1 alis PRN BID PRN TP groin irritation/yeast 02/24/21 23:00 02/25/21 05:10 Vitamin D (Vitamin D3) 1,000 unit DAILY PO 02/25/21 10:45 03/05/21 08:39 Divalproex Sodium (Depakote Sprinkles) 125 mg 0900,1700 PO 03/01/21 09:00 03/04/21 18:15 DC 03/04/21 17:13 Divalproex Sodium (Depakote Sprinkles) 250 mg 0900,1700 PO 03/05/21 09:00 03/05/21 17:31 Current Medications Medications (Trade) Dose Ordered Sig/Geoffrey Route PRN Reason Start Time Stop Time Status Last Admin Dose Admin Divalproex Sodium (Depakote Sprinkles) 250 mg 0900,1700 PO 03/05/21 09:00 03/05/21 17:31 I have reviewed the current psychotropics carefully including drug interactions. Risk benefit ratio favors no change other than as noted in my dictated progress note. Diagnosis: Problems: (1) Dementia with behavioral disturbance (2) Impulse control disorder, unspecified (3) Anxiety disorder, unspecified (4) Dementia, vascular, with depression (5) Dementia, vascular, with delusions (6) Dementia in Alzheimer's disease with depression (7) Dementia in Alzheimer's disease with delusions (8) Major neurocognitive disorder JENNIFER HANSON MD Mar 05, 2021 21:54
[2021-03-06 06:22] VITALS: BP 130/76
[2021-03-06] MEDS: SERTRALINE 50 MG TABLET. PO SCH (08:37)
[2021-03-06] MEDS: QUEtiapine 25 MG TABLET. PO SCH ×3 (08:37→17:08)
[2021-03-06] MEDS: CHOLECALCIFEROL (VITAMIN D3) 1,000 UNIT TABLET PO SCH (08:37)
[2021-03-06] MEDS: CETIRIZINE HCL 10 MG TABLET PO SCH (08:38)
[2021-03-06] MEDS: LISINOPRIL 10 MG TABLET PO SCH (08:38)
[2021-03-06] MEDS: DIVALPROEX 125 MG CAP.SPRINK PO SCH ×2 (08:38→17:08)
[2021-03-06] MEDS: MEMANTINE 10 MG TABLET. PO SCH ×2 (08:38→19:53)
[2021-03-06] MEDS: DICLOFENAC SODIUM 1% TOPICAL GEL 100GM TUBE. TP SCH ×2 (08:38→19:53)
[2021-03-06] MEDS: POLYVINYL ALCOHOL/POVIDONE/PF OPHTH SOLUTION DROPERETTE. OU SCH ×2 (08:38→19:53)
--- NOTE | 2021-03-06 12:07 | TX PLAN ---
Interdisciplinary Tx Plan Admission Information Feb 24, 2021 at 15:25 Legal Status (on Admission): Voluntary, DPOA DPOA/Guardian Name: Maia Marte-daughter Contact Other Contact Name: Chitra-nurse Other Contact Verified Code Status: DNR Allergies: Coded Allergies: Iodine and Iodide Containing Produc (Verified Allergy, Unknown, 02/24/21) Sulfa (Sulfonamide Antibiotics) (Verified Allergy, Unknown, 02/24/21) adhesive tape (Verified Allergy, Unknown, 02/24/21) amoxicillin (Verified Allergy, Unknown, 02/24/21) aspirin (Verified Allergy, Unknown, 02/24/21) benzocaine (Verified Allergy, Unknown, 02/24/21) cefuroxime (Verified Allergy, Unknown, 02/24/21) cetylpyridinium chloride (Verified Allergy, Unknown, 02/24/21) ciprofloxacin (Verified Allergy, Unknown, 02/24/21) clavulanic acid (Verified Allergy, Unknown, 02/24/21) codeine (Verified Allergy, Unknown, 02/24/21) doxycycline (Verified Allergy, Unknown, 02/24/21) epinephrine (Verified Allergy, Unknown, 02/24/21) influenza virus vaccine, specific (Verified Allergy, Unknown, 02/24/21) latex (Verified Allergy, Unknown, 02/24/21) menthol (Verified Allergy, Unknown, 02/24/21) metoclopramide (Verified Allergy, Unknown, 02/24/21) oxycodone (Verified Allergy, Unknown, 02/24/21) shellfish derived (Verified Allergy, Unknown, 02/24/21) Estimated Length of Stay: 14 Diagnoses Primary Diagnosis: Major neurocognitive d/o, vascular, alzheimer's with delusions, depression, BD; Anxiety d/o unspecified; Impulse Control D/O Reasons for Admission: Aggressive, Delusions, Agitated, Suspicious/paranoid, Confusion/Disoriented, Poor impulse control Problem in Patient's Words: As noted above. Per Radha, "I've got something in my body that's not doing something and causing me to be sick." Additional Admission Comments: Per intake record, accusing staff of pushing her, aggressive towards staff, accuses staff of taking her stuff, hoarding soiled briefs in her room, tried to hit a peer, history of hypersexual behavior, and thought a peer killed her . Problems Active Problems: Delusional Paranoid Confused Hoarding Aggressive Inactive Problems: Meal intakes 50% Sleep 7 hours Medication compliant Pt Strengths/Limitations Ability for [place]: Poor Cognitive Functioning/Ability: Poor Communication Skills/Ability: Fair Financial Resources: Fair Insight/Judgement: Poor Intellectual Ability: Fair Physical Health: Fair Social Skills: Fair Stability in Family: Good Verbal Skills: Fair Discharge Criteria Discharge Criteria: Adequate arrangements @DC, Improved behavior, Improved mood/thought Preliminary Discharge Plan Preliminary DC Plan: Current Living Arrange. Other Arrangements: [facility] vs. memory care Special Precautions Special Precautions: Agitation/Assault Fall Risk: High Initial D/C Plan [facility] vs. memory care placement Identified Discharge Needs: F/U with PCP and out patient psychiatry. Currently Utilized Resources Currently Utilized Resources/P: PCP Out patient psychiatry Identified Problems/Hx/Goals Objectives/Short-Term Goals Short Term Goals: Control abnormal behavior, Dec. Aggression, Dec. Hallucination/Delus, Dec. Outbursts, Medication Stabilization Short Term Goals in Patient's: Per MICHELLE, to ensure Radha is getting the best care, on the right medications, and to preserve placement at [facility] if safe to do so. Interventions/Frequency Staff Interventions/Frequency&: Nursing to provide routine safety checks, medicaton administation, and adl support. Psychiatry to see threes times weekly. SW to see twice weekly. PT/OT eval and tx as indicated. Recreational and SW group activties as Radha desires. 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 Social: Radha has enjoyed quaker choir, Multistatting, sewing, and reading. Education: Radha graduated from high school and attended nursing school. 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 Community Follow-up PCP Out patient psychiatry Community Provider/Family Inpu: MICHELLE Carvalho, was unable to be involved in team meeting this date as she was working. CT head to be completed. MMSE to be completed. Tentative d/c around 03/12/21. Treatment Plan Explained Patient/Brushing Operator had this treatment plan explained to him/her as indicated by the signature below and has been given the opportunity to ask questions and make suggestions: Date: Patient/Brushing Operator Signature: Status Update Update WEEKLY NOTE/UPDATE: Radha is averaging 50% of meal intakes and seven hours of sleep at night. She is alert with confusion and varied ability to converse with others. Radha has been easier to redirect when she is attention seeking from male peers. She has been observed to hold hands with male peers and kiss a male peer's arm. Radha continues to report delusions about her boyfriend being poisoned and new tenants at [facility] that are drunkards and rowdy. Seroquel will be increased to 25mg at 9am, 1pm, and 5pm. Radha participated in four group activities this past week. She does well with exercises and games. VPA is currently at 34, next lab will be on 03/08/21. Attempted to reach MICHELLE Carvalho, for team meeting and call rolled to voice mail. SW will update Maia at later time and fax update to nurse Chitra, at [facility]. Tentative d/c middle to late next week. HÉCTOR BUTCHER Mar 06, 2021 12:07
[2021-03-06 16:02] VITALS: BP 124/61
[2021-03-06] MEDS: MELATONIN 3 MG TABLET PO SCH (19:53)
[2021-03-06] MEDS: DONEPEZIL HCL 5 MG TABLET. PO SCH (19:53)
[2021-03-06] MEDS: METOPROLOL SUCC 24HR ER 50 MG TAB.ER.24H. PO SCH (19:53)
--- NOTE | 2021-03-06 22:05 | PDOC ---
Exam Note: Jack Note: Please also refer to the separate dictated note~for this date of service dictated separately.~Patient seen individually. Discussed the patient with Nursing staff reviewed the chart.~Reviewed interim history and current functioning. Reviewed vital signs,~Labs/ Radiology~and current medications noted below. Continue current treatment with the changes noted in the dictated addendum note Assessment: Vital Signs/I&O: Vital Signs Date Time Temp Pulse Resp B/P (MAP) Pulse Ox O2 Delivery O2 Flow Rate FiO2 03/06/21 19:53 64 124/61 03/06/21 16:02 97.7 20 94 03/02/21 06:18 Room Air I & O 03/05/21 03/05/21 03/06/21 15:00 23:00 07:00 Intake Total 600 ml 480 ml Balance 600 ml 480 ml Current Medications: Meds: Current Medications Medications (Trade) Dose Ordered Sig/Geoffrey Route PRN Reason Start Time Stop Time Status Last Admin Dose Admin Acetaminophen (Tylenol) 650 mg PRN Q6HRS PRN PO MILD PAIN / TEMP > 100.3'F 02/24/21 16:45 Multi-Ingredient Ointment (Analgesic [place]) 1 alis PRN QID PRN TP MUSCLE PAIN 02/24/21 16:45 Al Hydroxide/Mg Hydroxide (Mylanta Plus Xs) 15 ml PRN AFTMEALHC PRN PO DYSPEPSIA 02/24/21 16:45 Magnesium Hydroxide (Milk Of Magnesia) 2,400 mg PRN QHS PRN PO CONSTIPATION 02/24/21 16:45 Diclofenac Sodium (Voltaren) 1 alis BID TP 02/24/21 21:00 03/06/21 19:53 Donepezil HCl (Aricept) 15 mg HS PO 02/24/21 21:00 03/06/21 19:53 Lisinopril (Prinivil) 10 mg DAILY PO 02/25/21 09:00 03/06/21 08:38 Memantine (Namenda) 10 mg BID PO 02/24/21 21:00 03/06/21 19:53 Metoprolol Succinate (Toprol Xl) 50 mg HS PO 02/24/21 21:00 03/06/21 19:53 Nifedipine (Procardia Xl) 30 mg DAILY PO 02/25/21 09:00 03/06/21 08:38 Quetiapine Fumarate (SEROquel) 25 mg BID PO 02/24/21 21:00 03/06/21 10:45 DC 03/06/21 08:37 Sertraline HCl (Zoloft) 50 mg DAILY PO 02/25/21 09:00 03/06/21 08:37 Artificial Tears (Refresh Classic) 1 drop BID OU 02/24/21 21:00 03/06/21 19:53 Vitamin D (Vitamin D3) 25 unit DAILY PO 02/25/21 09:00 02/25/21 10:32 DC Cetirizine HCl (ZyrTEC) 10 mg DAILY PO 02/25/21 09:00 03/06/21 08:38 Melatonin (Melatonin) 3 mg QHS PO 02/24/21 21:00 03/06/21 19:53 Nystatin (Nystop) 1 alis PRN BID PRN TP groin irritation/yeast 02/24/21 23:00 02/25/21 05:10 Vitamin D (Vitamin D3) 1,000 unit DAILY PO 02/25/21 10:45 03/06/21 08:37 Divalproex Sodium (Depakote Sprinkles) 125 mg 0900,1700 PO 03/01/21 09:00 03/04/21 18:15 DC 03/04/21 17:13 Divalproex Sodium (Depakote Sprinkles) 250 mg 0900,1700 PO 03/05/21 09:00 03/06/21 17:08 Quetiapine Fumarate (SEROquel) 25 mg 0900,1300,1700 PO 03/06/21 13:00 03/06/21 17:08 Current Medications Medications (Trade) Dose Ordered Sig/Geoffrey Route PRN Reason Start Time Stop Time Status Last Admin Dose Admin Quetiapine Fumarate (SEROquel) 25 mg 0900,1300,1700 PO 03/06/21 13:00 03/06/21 17:08 I have reviewed the current psychotropics carefully including drug interactions. Risk benefit ratio favors no change other than as noted in my dictated progress note. Diagnosis: Problems: (1) Dementia with behavioral disturbance (2) Impulse control disorder, unspecified (3) Anxiety disorder, unspecified (4) Dementia, vascular, with depression (5) Dementia, vascular, with delusions (6) Dementia in Alzheimer's disease with depression (7) Dementia in Alzheimer's disease with delusions (8) Major neurocognitive disorder JENNIFER HANSON MD Mar 06, 2021 22:05
[2021-03-07 06:14] VITALS: BP 125/73
[2021-03-07] MEDS: DIVALPROEX 125 MG CAP.SPRINK PO SCH ×2 (07:59→17:17)
[2021-03-07] MEDS: CETIRIZINE HCL 10 MG TABLET PO SCH (08:00)
[2021-03-07] MEDS: MEMANTINE 10 MG TABLET. PO SCH ×2 (08:00→19:43)
[2021-03-07] MEDS: CHOLECALCIFEROL (VITAMIN D3) 1,000 UNIT TABLET PO SCH (08:00)
[2021-03-07] MEDS: SERTRALINE 50 MG TABLET. PO SCH (08:00)
[2021-03-07] MEDS: QUEtiapine 25 MG TABLET. PO SCH ×3 (08:00→17:17)
[2021-03-07] MEDS: LISINOPRIL 10 MG TABLET PO SCH (08:01)
[2021-03-07] MEDS: POLYVINYL ALCOHOL/POVIDONE/PF OPHTH SOLUTION DROPERETTE. OU SCH ×2 (08:01→19:43)
[2021-03-07] MEDS: DICLOFENAC SODIUM 1% TOPICAL GEL 100GM TUBE. TP SCH ×2 (08:06→19:44)
--- NOTE | 2021-03-07 09:58 | PDOC ---
Exam Note: Jack Note: This note is a late entry for 03/05/2021 covers elements not covered in my initial note. Subjective: The patient was seen individually in the evening of 03/05/2021 with Carolyn STEVENSON, discussed and reviewed the chart. The patient slept 8 hours previous night. Overall she remains confused, has done better. She had been talking to couple of male patients on the unit but no inappropriate sexual behaviors noted. I met with her in her room. Review of Systems: No CV, , pulmonary, eye system symptoms on review. Reliability poor. Mental Status Exam: The patient is oriented to herself. Insight and judgement, recent and remote memory, attention and concentration, fund of knowledge is poor consistent with her diagnoses. Laboratory Data: Reviewed. Impression: Major neurocognitive disorder Alzheimer, vascular with delusions, depression, behavioral disturbance. Anxiety disorder unspecified. Impulse control disorder unspecified. Plan: Maintain rest of the psychotropics unchanged. Assessment: Vital Signs/I&O: Vital Signs Date Time Temp Pulse Resp B/P (MAP) Pulse Ox O2 Delivery O2 Flow Rate FiO2 03/07/21 08:01 76 125/73 03/07/21 06:14 98.6 18 93 03/02/21 06:18 Room Air I & O 03/06/21 03/06/21 03/07/21 15:00 23:00 07:00 Intake Total 960 ml 490 ml Balance 960 ml 490 ml Current Medications: Meds: Current Medications Medications (Trade) Dose Ordered Sig/Geoffrey Route PRN Reason Start Time Stop Time Status Last Admin Dose Admin Acetaminophen (Tylenol) 650 mg PRN Q6HRS PRN PO MILD PAIN / TEMP > 100.3'F 02/24/21 16:45 Multi-Ingredient Ointment (Analgesic [place]) 1 alis PRN QID PRN TP MUSCLE PAIN 02/24/21 16:45 Al Hydroxide/Mg Hydroxide (Mylanta Plus Xs) 15 ml PRN AFTMEALHC PRN PO DYSPEPSIA 02/24/21 16:45 Magnesium Hydroxide (Milk Of Magnesia) 2,400 mg PRN QHS PRN PO CONSTIPATION 02/24/21 16:45 Diclofenac Sodium (Voltaren) 1 alis BID TP 02/24/21 21:00 03/06/21 19:53 Donepezil HCl (Aricept) 15 mg HS PO 02/24/21 21:00 03/06/21 19:53 Lisinopril (Prinivil) 10 mg DAILY PO 02/25/21 09:00 03/07/21 08:01 Memantine (Namenda) 10 mg BID PO 02/24/21 21:00 03/07/21 08:00 Metoprolol Succinate (Toprol Xl) 50 mg HS PO 02/24/21 21:00 03/06/21 19:53 Nifedipine (Procardia Xl) 30 mg DAILY PO 02/25/21 09:00 03/07/21 07:59 Quetiapine Fumarate (SEROquel) 25 mg BID PO 02/24/21 21:00 03/06/21 10:45 DC 03/06/21 08:37 Sertraline HCl (Zoloft) 50 mg DAILY PO 02/25/21 09:00 03/07/21 08:00 Artificial Tears (Refresh Classic) 1 drop BID OU 02/24/21 21:00 03/07/21 08:01 Vitamin D (Vitamin D3) 25 unit DAILY PO 02/25/21 09:00 02/25/21 10:32 DC Cetirizine HCl (ZyrTEC) 10 mg DAILY PO 02/25/21 09:00 03/07/21 08:00 Melatonin (Melatonin) 3 mg QHS PO 02/24/21 21:00 03/06/21 19:53 Nystatin (Nystop) 1 alis PRN BID PRN TP groin irritation/yeast 02/24/21 23:00 02/25/21 05:10 Vitamin D (Vitamin D3) 1,000 unit DAILY PO 02/25/21 10:45 03/07/21 08:00 Divalproex Sodium (Depakote Sprinkles) 125 mg 0900,1700 PO 03/01/21 09:00 03/04/21 18:15 DC 03/04/21 17:13 Divalproex Sodium (Depakote Sprinkles) 250 mg 0900,1700 PO 03/05/21 09:00 03/07/21 07:59 Quetiapine Fumarate (SEROquel) 25 mg 0900,1300,1700 PO 03/06/21 13:00 03/07/21 08:00 Current Medications Medications (Trade) Dose Ordered Sig/Geoffrey Route PRN Reason Start Time Stop Time Status Last Admin Dose Admin Quetiapine Fumarate (SEROquel) 25 mg 0900,1300,1700 PO 03/06/21 13:00 03/07/21 08:00 I have reviewed the current psychotropics carefully including drug interactions. Risk benefit ratio favors no change other than as noted in my dictated progress note. Diagnosis: Problems: (1) Dementia with behavioral disturbance (2) Impulse control disorder, unspecified (3) Anxiety disorder, unspecified (4) Dementia, vascular, with depression (5) Dementia, vascular, with delusions (6) Dementia in Alzheimer's disease with depression (7) Dementia in Alzheimer's disease with delusions (8) Major neurocognitive disorder JENNIFER HANSON MD Mar 07, 2021 09:58
[2021-03-07 15:55] VITALS: BP 124/71
[2021-03-07] MEDS: DONEPEZIL HCL 5 MG TABLET. PO SCH (19:43)
[2021-03-07] MEDS: MELATONIN 3 MG TABLET PO SCH (19:43)
[2021-03-07] MEDS: METOPROLOL SUCC 24HR ER 50 MG TAB.ER.24H. PO SCH (19:44)
--- NOTE | 2021-03-07 21:53 | PDOC ---
Exam Note: Jack Note: Please also refer to the separate dictated note~for this date of service dictated separately.~Patient seen individually. Discussed the patient with Nursing staff reviewed the chart.~Reviewed interim history and current functioning. Reviewed vital signs,~Labs/ Radiology~and current medications noted below. Continue current treatment with the changes noted in the dictated addendum note Assessment: Vital Signs/I&O: Vital Signs Date Time Temp Pulse Resp B/P (MAP) Pulse Ox O2 Delivery O2 Flow Rate FiO2 03/07/21 19:44 59 124/71 03/07/21 15:55 98.0 16 95 03/02/21 06:18 Room Air I & O 03/06/21 03/06/21 03/07/21 15:00 23:00 07:00 Intake Total 960 ml 490 ml Balance 960 ml 490 ml Current Medications: Meds: Current Medications Medications (Trade) Dose Ordered Sig/Geoffrey Route PRN Reason Start Time Stop Time Status Last Admin Dose Admin Acetaminophen (Tylenol) 650 mg PRN Q6HRS PRN PO MILD PAIN / TEMP > 100.3'F 02/24/21 16:45 Multi-Ingredient Ointment (Analgesic [place]) 1 alis PRN QID PRN TP MUSCLE PAIN 02/24/21 16:45 Al Hydroxide/Mg Hydroxide (Mylanta Plus Xs) 15 ml PRN AFTMEALHC PRN PO DYSPEPSIA 02/24/21 16:45 Magnesium Hydroxide (Milk Of Magnesia) 2,400 mg PRN QHS PRN PO CONSTIPATION 02/24/21 16:45 Diclofenac Sodium (Voltaren) 1 alis BID TP 02/24/21 21:00 03/07/21 19:44 Donepezil HCl (Aricept) 15 mg HS PO 02/24/21 21:00 03/07/21 19:43 Lisinopril (Prinivil) 10 mg DAILY PO 02/25/21 09:00 03/07/21 08:01 Memantine (Namenda) 10 mg BID PO 02/24/21 21:00 03/07/21 19:43 Metoprolol Succinate (Toprol Xl) 50 mg HS PO 02/24/21 21:00 03/06/21 19:53 Nifedipine (Procardia Xl) 30 mg DAILY PO 02/25/21 09:00 03/07/21 07:59 Quetiapine Fumarate (SEROquel) 25 mg BID PO 02/24/21 21:00 03/06/21 10:45 DC 03/06/21 08:37 Sertraline HCl (Zoloft) 50 mg DAILY PO 02/25/21 09:00 03/07/21 08:00 Artificial Tears (Refresh Classic) 1 drop BID OU 02/24/21 21:00 03/07/21 19:43 Vitamin D (Vitamin D3) 25 unit DAILY PO 02/25/21 09:00 02/25/21 10:32 DC Cetirizine HCl (ZyrTEC) 10 mg DAILY PO 02/25/21 09:00 03/07/21 08:00 Melatonin (Melatonin) 3 mg QHS PO 02/24/21 21:00 03/07/21 19:43 Nystatin (Nystop) 1 alis PRN BID PRN TP groin irritation/yeast 02/24/21 23:00 02/25/21 05:10 Vitamin D (Vitamin D3) 1,000 unit DAILY PO 02/25/21 10:45 03/07/21 08:00 Divalproex Sodium (Depakote Sprinkles) 125 mg 0900,1700 PO 03/01/21 09:00 03/04/21 18:15 DC 03/04/21 17:13 Divalproex Sodium (Depakote Sprinkles) 250 mg 0900,1700 PO 03/05/21 09:00 03/07/21 17:17 Quetiapine Fumarate (SEROquel) 25 mg 0900,1300,1700 PO 03/06/21 13:00 03/07/21 17:17 I have reviewed the current psychotropics carefully including drug interactions. Risk benefit ratio favors no change other than as noted in my dictated progress note. Diagnosis: Problems: (1) Dementia with behavioral disturbance (2) Impulse control disorder, unspecified (3) Anxiety disorder, unspecified (4) Dementia, vascular, with depression (5) Dementia, vascular, with delusions (6) Dementia in Alzheimer's disease with depression (7) Dementia in Alzheimer's disease with delusions (8) Major neurocognitive disorder JENNIFER HANSON MD Mar 07, 2021 21:53
[2021-03-08 05:59] VITALS: BP 132/82
[2021-03-08] MEDS: SERTRALINE 50 MG TABLET. PO SCH (08:40)
[2021-03-08] MEDS: DIVALPROEX 125 MG CAP.SPRINK PO SCH ×2 (08:40→17:08)
[2021-03-08] MEDS: CETIRIZINE HCL 10 MG TABLET PO SCH (08:40)
[2021-03-08] MEDS: LISINOPRIL 10 MG TABLET PO SCH (08:41)
[2021-03-08] MEDS: QUEtiapine 25 MG TABLET. PO SCH ×3 (08:41→17:08)
[2021-03-08] MEDS: MEMANTINE 10 MG TABLET. PO SCH ×2 (08:41→20:40)
[2021-03-08] MEDS: CHOLECALCIFEROL (VITAMIN D3) 1,000 UNIT TABLET PO SCH (08:41)
[2021-03-08] MEDS: POLYVINYL ALCOHOL/POVIDONE/PF OPHTH SOLUTION DROPERETTE. OU SCH ×2 (08:42→20:39)
[2021-03-08] MEDS: DICLOFENAC SODIUM 1% TOPICAL GEL 100GM TUBE. TP SCH ×2 (08:47→20:40)
[2021-03-08 08:54] LABS: BASO % 1 % (0-3); EOS # 0.2 x10^3/uL (0.0-0.7); EOS % 3 % (0-3); HEMATOCRIT 44.8 % (36.0-47.0); HEMOGLOBIN 14.6 g/dL (12.0-15.5); LYMPH # 1.6 x10^3/uL (1.0-4.8); LYMPH % 25 % (24-48); MEAN CORPUSCULAR HEMOGLOBIN 30 pg (25-35); MEAN CORPUSCULAR HGB CONC 32 g/dL (31-37); MEAN CORPUSCULAR VOLUME 92 fL (79-100); MONO # 0.6 x10^3/uL (0.0-1.1); MONO % 9 % (0-9); NEUT % 63 % (31-73); PLATELET COUNT 167 x10^3/uL (140-400); RED BLOOD COUNT 4.86 x10^6/uL (3.50-5.40); RED CELL DISTRIBUTION WIDTH 14.6 % (11.5-14.5); WHITE BLOOD COUNT 6.5 x10^3/uL (4.0-11.0)
[2021-03-08 09:05] LABS: ALBUMIN 3.5 g/dL (3.4-5.0); ALBUMIN/GLOBULIN RATIO 0.8 (1.0-1.7); ALK PHOS 69 U/L (46-116); ALT (SGPT) 35 U/L (14-59); ANION GAP 9 (6-14); AST (SGOT) 43 U/L (15-37); BLOOD UREA NITROGEN 25 mg/dL (7-20); BUN/CREATININE RATIO 28 (6-20); CALCIUM 9.1 mg/dL (8.5-10.1); CARBON DIOXIDE 25 mmol/L (21-32); CHLORIDE 103 mmol/L (98-107); CREATININE 0.9 mg/dL (0.6-1.0); GFR 60.4; GLUCOSE 100 mg/dL (70-99); POTASSIUM 4.2 mmol/L (3.5-5.1); SODIUM 137 mmol/L (136-145); TOTAL BILIRUBIN 0.4 mg/dL (0.2-1.0); TOTAL PROTEIN 7.9 g/dL (6.4-8.2)
[2021-03-08 09:55] LABS: VAL ACID 54 mcg/mL (50-100)
[2021-03-08 15:33] VITALS: BP 118/81
--- NOTE | 2021-03-08 20:30 | PDOC ---
Exam Note: Jack Note: This note is a late entry for 03/06/2021 covers elements not covered in my initial note. Subjective: The patient was reviewed at treatment team meeting individually in the morning on 03/06/2021 with Addie Lima, Tanya Hernandez, and Cyndie Hayward (social media marketing manager), Krista, activity therapy and Carmita STEVENSON, discussed and reviewed the chart. The patient slept 7 hours previous night. Her appetite is 50%. Patients daughter Maia was to join the meeting but did not respond to the telephone call. She is compliant with medications, oriented to herself, confused, somewhat inappropriate with 2 male patients on the unit but redirected. Valproic acid level will be checked on 03/08. She has attended 3 groups. As noted she was kissing one of the male patients arms and talking about having some drunk people roaming around her complex. She was confused regarding another patient on the unit, felt he was her and then said someone poisoned him at the age 89. Review of Systems: No CV, , pulmonary, eye system symptoms on review. Reliability poor. Mental Status Exam: The patient is oriented to herself. Insight and judgement, recent and remote memory, attention and concentration, fund of knowledge is poor consistent with her diagnoses. Laboratory Data: Reviewed. Impression: Major neurocognitive disorder Alzheimer, vascular with delusions, depression, behavioral disturbance. Anxiety disorder unspecified. Impulse control disorder unspecified. Plan: Maintain rest of the psychotropics unchanged. Currently the patients Seroquel is 25 mg b.i.d. We will increase to 25 mg 9 a.m., 1 p.m. and 5 p.m. Check valproic acid level on 03/08. Adjust Depakote thereafter. Rest unchanged for now. Assessment: Vital Signs/I&O: Vital Signs Date Time Temp Pulse Resp B/P (MAP) Pulse Ox O2 Delivery O2 Flow Rate FiO2 03/08/21 15:33 97.7 79 16 118/81 (93) 95 03/08/21 05:59 Room Air I & O 03/07/21 03/07/21 03/08/21 15:00 23:00 07:00 Intake Total 600 ml 720 ml Balance 600 ml 720 ml Labs: Laboratory Tests Test 03/08/21 05:30 03/08/21 08:05 SARS-CoV-2 (PCR) Not detected (NOT DETECTD) White Blood Count 6.5 x10^3/uL (4.0-11.0) Red Blood Count 4.86 x10^6/uL (3.50-5.40) Hemoglobin 14.6 g/dL (12.0-15.5) Hematocrit 44.8 % (36.0-47.0) Mean Corpuscular Volume 92 fL (79-100) Mean Corpuscular Hemoglobin 30 pg (25-35) Mean Corpuscular Hemoglobin Concent 32 g/dL (31-37) Red Cell Distribution Width 14.6 % (11.5-14.5) H Platelet Count 167 x10^3/uL (140-400) Neutrophils (%) (Auto) 63 % (31-73) Lymphocytes (%) (Auto) 25 % (24-48) Monocytes (%) (Auto) 9 % (0-9) Eosinophils (%) (Auto) 3 % (0-3) Basophils (%) (Auto) 1 % (0-3) Neutrophils # (Auto) 4.0 x10^3uL (1.8-7.7) Lymphocytes # (Auto) 1.6 x10^3/uL (1.0-4.8) Monocytes # (Auto) 0.6 x10^3/uL (0.0-1.1) Eosinophils # (Auto) 0.2 x10^3/uL (0.0-0.7) Basophils # (Auto) 0.0 x10^3/uL (0.0-0.2) Sodium Level 137 mmol/L (136-145) Potassium Level 4.2 mmol/L (3.5-5.1) Chloride Level 103 mmol/L (98-107) Carbon Dioxide Level 25 mmol/L (21-32) Anion Gap 9 (6-14) Blood Urea Nitrogen 25 mg/dL (7-20) H Creatinine 0.9 mg/dL (0.6-1.0) Estimated GFR (Cockcroft-Gault) 60.4 BUN/Creatinine Ratio 28 (6-20) H Glucose Level 100 mg/dL (70-99) H Calcium Level 9.1 mg/dL (8.5-10.1) Total Bilirubin 0.4 mg/dL (0.2-1.0) Aspartate Amino Transferase (AST) 43 U/L (15-37) H Alanine Aminotransferase (ALT) 35 U/L (14-59) Alkaline Phosphatase 69 U/L (46-116) Total Protein 7.9 g/dL (6.4-8.2) Albumin 3.5 g/dL (3.4-5.0) Albumin/Globulin Ratio 0.8 (1.0-1.7) L Valproic Acid Level 54 mcg/mL (50-100) Valproic Acid Last Dose Date 03/07/21 Valproic Acid Last Dose Time 1700 Current Medications: Meds: Laboratory Tests Test 03/08/21 05:30 03/08/21 08:05 Coronavirus (COVID-19)(PCR) Not detected White Blood Count 6.5 x10^3/uL Red Blood Count 4.86 x10^6/uL Hemoglobin 14.6 g/dL Hematocrit 44.8 % Mean Corpuscular Volume 92 fL Mean Corpuscular Hemoglobin 30 pg Mean Corpuscular Hemoglobin Concent 32 g/dL Red Cell Distribution Width 14.6 % Platelet Count 167 x10^3/uL Neutrophils (%) (Auto) 63 % Lymphocytes (%) (Auto) 25 % Monocytes (%) (Auto) 9 % Eosinophils (%) (Auto) 3 % Basophils (%) (Auto) 1 % Neutrophils # (Auto) 4.0 x10^3uL Lymphocytes # (Auto) 1.6 x10^3/uL Monocytes # (Auto) 0.6 x10^3/uL Eosinophils # (Auto) 0.2 x10^3/uL Basophils # (Auto) 0.0 x10^3/uL Sodium Level 137 mmol/L Potassium Level 4.2 mmol/L Chloride Level 103 mmol/L Carbon Dioxide Level 25 mmol/L Anion Gap 9 Blood Urea Nitrogen 25 mg/dL Creatinine 0.9 mg/dL Estimated GFR (Cockcroft-Gault) 60.4 BUN/Creatinine Ratio 28 Glucose Level 100 mg/dL Calcium Level 9.1 mg/dL Total Bilirubin 0.4 mg/dL Aspartate Amino Transf (AST/SGOT) 43 U/L Alanine Aminotransferase (ALT/SGPT) 35 U/L Alkaline Phosphatase 69 U/L Total Protein 7.9 g/dL Albumin 3.5 g/dL Albumin/Globulin Ratio 0.8 Valproic Acid (Depakene) Level 54 mcg/mL Valproic Acid Last Dose Date 03/07/21 Valproic Acid Last Dose Time 1700 Current Medications Medications (Trade) Dose Ordered Sig/Geoffrey Route PRN Reason Start Time Stop Time Status Last Admin Dose Admin Acetaminophen (Tylenol) 650 mg PRN Q6HRS PRN PO MILD PAIN / TEMP > 100.3'F 02/24/21 16:45 Multi-Ingredient Ointment (Analgesic [place]) 1 alis PRN QID PRN TP MUSCLE PAIN 02/24/21 16:45 Al Hydroxide/Mg Hydroxide (Mylanta Plus Xs) 15 ml PRN AFTMEALHC PRN PO DYSPEPSIA 02/24/21 16:45 Magnesium Hydroxide (Milk Of Magnesia) 2,400 mg PRN QHS PRN PO CONSTIPATION 02/24/21 16:45 Diclofenac Sodium (Voltaren) 1 alis BID TP 02/24/21 21:00 03/07/21 19:44 Donepezil HCl (Aricept) 15 mg HS PO 02/24/21 21:00 03/07/21 19:43 Lisinopril (Prinivil) 10 mg DAILY PO 02/25/21 09:00 03/08/21 08:41 Memantine (Namenda) 10 mg BID PO 02/24/21 21:00 03/08/21 08:41 Metoprolol Succinate (Toprol Xl) 50 mg HS PO 02/24/21 21:00 03/06/21 19:53 Nifedipine (Procardia Xl) 30 mg DAILY PO 02/25/21 09:00 03/08/21 08:41 Quetiapine Fumarate (SEROquel) 25 mg BID PO 02/24/21 21:00 03/06/21 10:45 DC 03/06/21 08:37 Sertraline HCl (Zoloft) 50 mg DAILY PO 02/25/21 09:00 03/08/21 08:40 Artificial Tears (Refresh Classic) 1 drop BID OU 02/24/21 21:00 03/08/21 08:42 Vitamin D (Vitamin D3) 25 unit DAILY PO 02/25/21 09:00 02/25/21 10:32 DC Cetirizine HCl (ZyrTEC) 10 mg DAILY PO 02/25/21 09:00 03/08/21 08:40 Melatonin (Melatonin) 3 mg QHS PO 02/24/21 21:00 03/07/21 19:43 Nystatin (Nystop) 1 alis PRN BID PRN TP groin irritation/yeast 02/24/21 23:00 02/25/21 05:10 Vitamin D (Vitamin D3) 1,000 unit DAILY PO 02/25/21 10:45 03/08/21 08:41 Divalproex Sodium (Depakote Sprinkles) 125 mg 0900,1700 PO 03/01/21 09:00 03/04/21 18:15 DC 03/04/21 17:13 Divalproex Sodium (Depakote Sprinkles) 250 mg 0900,1700 PO 03/05/21 09:00 03/08/21 17:08 Quetiapine Fumarate (SEROquel) 25 mg 0900,1300,1700 PO 03/06/21 13:00 03/08/21 17:08 I have reviewed the current psychotropics carefully including drug interactions. Risk benefit ratio favors no change other than as noted in my dictated progress note. Diagnosis: Problems: (1) Dementia with behavioral disturbance (2) Impulse control disorder, unspecified (3) Anxiety disorder, unspecified (4) Dementia, vascular, with depression (5) Dementia, vascular, with delusions (6) Dementia in Alzheimer's disease with depression (7) Dementia in Alzheimer's disease with delusions (8) Major neurocognitive disorder JENNIFER HANSON MD Mar 08, 2021 20:30
[2021-03-08] MEDS: MELATONIN 3 MG TABLET PO SCH (20:40)
[2021-03-08] MEDS: DONEPEZIL HCL 5 MG TABLET. PO SCH (20:40)
[2021-03-08] MEDS: METOPROLOL SUCC 24HR ER 50 MG TAB.ER.24H. PO SCH (20:41)
--- NOTE | 2021-03-08 21:01 | PDOC ---
Exam Note: Jack Note: This note is a late entry for 03/07/2021 covers elements not covered in my initial note. Subjective: The patient was seen individually in the evening of 03/07/2021 with New STEVENSON, discussed and reviewed the chart. The patient slept 9 hours previous night. She has been more social. No sexually inappropriate behaviors noted. Review of Systems: No CV, , pulmonary, eye system symptoms on review. Reliability poor. Mental Status Exam: The patient is oriented to herself. Insight and judgement, recent and remote memory, attention and concentration, fund of knowledge is poor consistent with her diagnoses. Laboratory Data: Reviewed. Impression: Major neurocognitive disorder Alzheimer, vascular with delusions, depression, behavioral disturbance. Anxiety disorder unspecified. Impulse control disorder unspecified. Plan: Maintain rest of the psychotropics unchanged. Assessment: Vital Signs/I&O: Vital Signs Date Time Temp Pulse Resp B/P (MAP) Pulse Ox O2 Delivery O2 Flow Rate FiO2 03/08/21 20:41 79 118/81 03/08/21 15:33 97.7 16 95 03/08/21 05:59 Room Air I & O 03/07/21 03/07/21 03/08/21 15:00 23:00 07:00 Intake Total 600 ml 720 ml Balance 600 ml 720 ml Labs: Laboratory Tests Test 03/08/21 05:30 03/08/21 08:05 SARS-CoV-2 (PCR) Not detected (NOT DETECTD) White Blood Count 6.5 x10^3/uL (4.0-11.0) Red Blood Count 4.86 x10^6/uL (3.50-5.40) Hemoglobin 14.6 g/dL (12.0-15.5) Hematocrit 44.8 % (36.0-47.0) Mean Corpuscular Volume 92 fL (79-100) Mean Corpuscular Hemoglobin 30 pg (25-35) Mean Corpuscular Hemoglobin Concent 32 g/dL (31-37) Red Cell Distribution Width 14.6 % (11.5-14.5) H Platelet Count 167 x10^3/uL (140-400) Neutrophils (%) (Auto) 63 % (31-73) Lymphocytes (%) (Auto) 25 % (24-48) Monocytes (%) (Auto) 9 % (0-9) Eosinophils (%) (Auto) 3 % (0-3) Basophils (%) (Auto) 1 % (0-3) Neutrophils # (Auto) 4.0 x10^3uL (1.8-7.7) Lymphocytes # (Auto) 1.6 x10^3/uL (1.0-4.8) Monocytes # (Auto) 0.6 x10^3/uL (0.0-1.1) Eosinophils # (Auto) 0.2 x10^3/uL (0.0-0.7) Basophils # (Auto) 0.0 x10^3/uL (0.0-0.2) Sodium Level 137 mmol/L (136-145) Potassium Level 4.2 mmol/L (3.5-5.1) Chloride Level 103 mmol/L (98-107) Carbon Dioxide Level 25 mmol/L (21-32) Anion Gap 9 (6-14) Blood Urea Nitrogen 25 mg/dL (7-20) H Creatinine 0.9 mg/dL (0.6-1.0) Estimated GFR (Cockcroft-Gault) 60.4 BUN/Creatinine Ratio 28 (6-20) H Glucose Level 100 mg/dL (70-99) H Calcium Level 9.1 mg/dL (8.5-10.1) Total Bilirubin 0.4 mg/dL (0.2-1.0) Aspartate Amino Transferase (AST) 43 U/L (15-37) H Alanine Aminotransferase (ALT) 35 U/L (14-59) Alkaline Phosphatase 69 U/L (46-116) Total Protein 7.9 g/dL (6.4-8.2) Albumin 3.5 g/dL (3.4-5.0) Albumin/Globulin Ratio 0.8 (1.0-1.7) L Valproic Acid Level 54 mcg/mL (50-100) Valproic Acid Last Dose Date 03/07/21 Valproic Acid Last Dose Time 1700 Current Medications: Meds: Laboratory Tests Test 03/08/21 05:30 03/08/21 08:05 Coronavirus (COVID-19)(PCR) Not detected White Blood Count 6.5 x10^3/uL Red Blood Count 4.86 x10^6/uL Hemoglobin 14.6 g/dL Hematocrit 44.8 % Mean Corpuscular Volume 92 fL Mean Corpuscular Hemoglobin 30 pg Mean Corpuscular Hemoglobin Concent 32 g/dL Red Cell Distribution Width 14.6 % Platelet Count 167 x10^3/uL Neutrophils (%) (Auto) 63 % Lymphocytes (%) (Auto) 25 % Monocytes (%) (Auto) 9 % Eosinophils (%) (Auto) 3 % Basophils (%) (Auto) 1 % Neutrophils # (Auto) 4.0 x10^3uL Lymphocytes # (Auto) 1.6 x10^3/uL Monocytes # (Auto) 0.6 x10^3/uL Eosinophils # (Auto) 0.2 x10^3/uL Basophils # (Auto) 0.0 x10^3/uL Sodium Level 137 mmol/L Potassium Level 4.2 mmol/L Chloride Level 103 mmol/L Carbon Dioxide Level 25 mmol/L Anion Gap 9 Blood Urea Nitrogen 25 mg/dL Creatinine 0.9 mg/dL Estimated GFR (Cockcroft-Gault) 60.4 BUN/Creatinine Ratio 28 Glucose Level 100 mg/dL Calcium Level 9.1 mg/dL Total Bilirubin 0.4 mg/dL Aspartate Amino Transf (AST/SGOT) 43 U/L Alanine Aminotransferase (ALT/SGPT) 35 U/L Alkaline Phosphatase 69 U/L Total Protein 7.9 g/dL Albumin 3.5 g/dL Albumin/Globulin Ratio 0.8 Valproic Acid (Depakene) Level 54 mcg/mL Valproic Acid Last Dose Date 03/07/21 Valproic Acid Last Dose Time 1700 Current Medications Medications (Trade) Dose Ordered Sig/Geoffrey Route PRN Reason Start Time Stop Time Status Last Admin Dose Admin Acetaminophen (Tylenol) 650 mg PRN Q6HRS PRN PO MILD PAIN / TEMP > 100.3'F 02/24/21 16:45 Multi-Ingredient Ointment (Analgesic [place]) 1 alis PRN QID PRN TP MUSCLE PAIN 02/24/21 16:45 Al Hydroxide/Mg Hydroxide (Mylanta Plus Xs) 15 ml PRN AFTMEALHC PRN PO DYSPEPSIA 02/24/21 16:45 Magnesium Hydroxide (Milk Of Magnesia) 2,400 mg PRN QHS PRN PO CONSTIPATION 02/24/21 16:45 Diclofenac Sodium (Voltaren) 1 alis BID TP 02/24/21 21:00 03/08/21 20:40 Donepezil HCl (Aricept) 15 mg HS PO 02/24/21 21:00 03/08/21 20:40 Lisinopril (Prinivil) 10 mg DAILY PO 02/25/21 09:00 03/08/21 08:41 Memantine (Namenda) 10 mg BID PO 02/24/21 21:00 03/08/21 20:40 Metoprolol Succinate (Toprol Xl) 50 mg HS PO 02/24/21 21:00 03/08/21 20:41 Nifedipine (Procardia Xl) 30 mg DAILY PO 02/25/21 09:00 03/08/21 08:41 Quetiapine Fumarate (SEROquel) 25 mg BID PO 02/24/21 21:00 03/06/21 10:45 DC 03/06/21 08:37 Sertraline HCl (Zoloft) 50 mg DAILY PO 02/25/21 09:00 03/08/21 08:40 Artificial Tears (Refresh Classic) 1 drop BID OU 02/24/21 21:00 03/08/21 20:39 Vitamin D (Vitamin D3) 25 unit DAILY PO 02/25/21 09:00 02/25/21 10:32 DC Cetirizine HCl (ZyrTEC) 10 mg DAILY PO 02/25/21 09:00 03/08/21 08:40 Melatonin (Melatonin) 3 mg QHS PO 02/24/21 21:00 03/08/21 20:40 Nystatin (Nystop) 1 alis PRN BID PRN TP groin irritation/yeast 02/24/21 23:00 02/25/21 05:10 Vitamin D (Vitamin D3) 1,000 unit DAILY PO 02/25/21 10:45 03/08/21 08:41 Divalproex Sodium (Depakote Sprinkles) 125 mg 0900,1700 PO 03/01/21 09:00 03/04/21 18:15 DC 03/04/21 17:13 Divalproex Sodium (Depakote Sprinkles) 250 mg 0900,1700 PO 03/05/21 09:00 03/08/21 17:08 Quetiapine Fumarate (SEROquel) 25 mg 0900,1300,1700 PO 03/06/21 13:00 03/08/21 17:08 I have reviewed the current psychotropics carefully including drug interactions. Risk benefit ratio favors no change other than as noted in my dictated progress note. Diagnosis: Problems: (1) Dementia with behavioral disturbance (2) Impulse control disorder, unspecified (3) Anxiety disorder, unspecified (4) Dementia, vascular, with depression (5) Dementia, vascular, with delusions (6) Dementia in Alzheimer's disease with depression (7) Dementia in Alzheimer's disease with delusions (8) Major neurocognitive disorder JENNIFER HANSON MD Mar 08, 2021 21:01
--- NOTE | 2021-03-08 21:02 | PDOC ---
Exam Note: Jack Note: Please also refer to the separate dictated note~for this date of service dictated separately.~Patient seen individually. Discussed the patient with Nursing staff reviewed the chart.~Reviewed interim history and current functioning. Reviewed vital signs,~Labs/ Radiology~and current medications noted below. Continue current treatment with the changes noted in the dictated addendum note Assessment: Vital Signs/I&O: Vital Signs Date Time Temp Pulse Resp B/P (MAP) Pulse Ox O2 Delivery O2 Flow Rate FiO2 03/08/21 20:41 79 118/81 03/08/21 15:33 97.7 16 95 03/08/21 05:59 Room Air I & O 03/07/21 03/07/21 03/08/21 15:00 23:00 07:00 Intake Total 600 ml 720 ml Balance 600 ml 720 ml Labs: Laboratory Tests Test 03/08/21 05:30 03/08/21 08:05 SARS-CoV-2 (PCR) Not detected (NOT DETECTD) White Blood Count 6.5 x10^3/uL (4.0-11.0) Red Blood Count 4.86 x10^6/uL (3.50-5.40) Hemoglobin 14.6 g/dL (12.0-15.5) Hematocrit 44.8 % (36.0-47.0) Mean Corpuscular Volume 92 fL (79-100) Mean Corpuscular Hemoglobin 30 pg (25-35) Mean Corpuscular Hemoglobin Concent 32 g/dL (31-37) Red Cell Distribution Width 14.6 % (11.5-14.5) H Platelet Count 167 x10^3/uL (140-400) Neutrophils (%) (Auto) 63 % (31-73) Lymphocytes (%) (Auto) 25 % (24-48) Monocytes (%) (Auto) 9 % (0-9) Eosinophils (%) (Auto) 3 % (0-3) Basophils (%) (Auto) 1 % (0-3) Neutrophils # (Auto) 4.0 x10^3uL (1.8-7.7) Lymphocytes # (Auto) 1.6 x10^3/uL (1.0-4.8) Monocytes # (Auto) 0.6 x10^3/uL (0.0-1.1) Eosinophils # (Auto) 0.2 x10^3/uL (0.0-0.7) Basophils # (Auto) 0.0 x10^3/uL (0.0-0.2) Sodium Level 137 mmol/L (136-145) Potassium Level 4.2 mmol/L (3.5-5.1) Chloride Level 103 mmol/L (98-107) Carbon Dioxide Level 25 mmol/L (21-32) Anion Gap 9 (6-14) Blood Urea Nitrogen 25 mg/dL (7-20) H Creatinine 0.9 mg/dL (0.6-1.0) Estimated GFR (Cockcroft-Gault) 60.4 BUN/Creatinine Ratio 28 (6-20) H Glucose Level 100 mg/dL (70-99) H Calcium Level 9.1 mg/dL (8.5-10.1) Total Bilirubin 0.4 mg/dL (0.2-1.0) Aspartate Amino Transferase (AST) 43 U/L (15-37) H Alanine Aminotransferase (ALT) 35 U/L (14-59) Alkaline Phosphatase 69 U/L (46-116) Total Protein 7.9 g/dL (6.4-8.2) Albumin 3.5 g/dL (3.4-5.0) Albumin/Globulin Ratio 0.8 (1.0-1.7) L Valproic Acid Level 54 mcg/mL (50-100) Valproic Acid Last Dose Date 03/07/21 Valproic Acid Last Dose Time 1700 Current Medications: Meds: Laboratory Tests Test 03/08/21 05:30 03/08/21 08:05 Coronavirus (COVID-19)(PCR) Not detected White Blood Count 6.5 x10^3/uL Red Blood Count 4.86 x10^6/uL Hemoglobin 14.6 g/dL Hematocrit 44.8 % Mean Corpuscular Volume 92 fL Mean Corpuscular Hemoglobin 30 pg Mean Corpuscular Hemoglobin Concent 32 g/dL Red Cell Distribution Width 14.6 % Platelet Count 167 x10^3/uL Neutrophils (%) (Auto) 63 % Lymphocytes (%) (Auto) 25 % Monocytes (%) (Auto) 9 % Eosinophils (%) (Auto) 3 % Basophils (%) (Auto) 1 % Neutrophils # (Auto) 4.0 x10^3uL Lymphocytes # (Auto) 1.6 x10^3/uL Monocytes # (Auto) 0.6 x10^3/uL Eosinophils # (Auto) 0.2 x10^3/uL Basophils # (Auto) 0.0 x10^3/uL Sodium Level 137 mmol/L Potassium Level 4.2 mmol/L Chloride Level 103 mmol/L Carbon Dioxide Level 25 mmol/L Anion Gap 9 Blood Urea Nitrogen 25 mg/dL Creatinine 0.9 mg/dL Estimated GFR (Cockcroft-Gault) 60.4 BUN/Creatinine Ratio 28 Glucose Level 100 mg/dL Calcium Level 9.1 mg/dL Total Bilirubin 0.4 mg/dL Aspartate Amino Transf (AST/SGOT) 43 U/L Alanine Aminotransferase (ALT/SGPT) 35 U/L Alkaline Phosphatase 69 U/L Total Protein 7.9 g/dL Albumin 3.5 g/dL Albumin/Globulin Ratio 0.8 Valproic Acid (Depakene) Level 54 mcg/mL Valproic Acid Last Dose Date 03/07/21 Valproic Acid Last Dose Time 1700 Current Medications Medications (Trade) Dose Ordered Sig/Geoffrey Route PRN Reason Start Time Stop Time Status Last Admin Dose Admin Acetaminophen (Tylenol) 650 mg PRN Q6HRS PRN PO MILD PAIN / TEMP > 100.3'F 02/24/21 16:45 Multi-Ingredient Ointment (Analgesic [place]) 1 alis PRN QID PRN TP MUSCLE PAIN 02/24/21 16:45 Al Hydroxide/Mg Hydroxide (Mylanta Plus Xs) 15 ml PRN AFTMEALHC PRN PO DYSPEPSIA 02/24/21 16:45 Magnesium Hydroxide (Milk Of Magnesia) 2,400 mg PRN QHS PRN PO CONSTIPATION 02/24/21 16:45 Diclofenac Sodium (Voltaren) 1 alis BID TP 02/24/21 21:00 03/08/21 20:40 Donepezil HCl (Aricept) 15 mg HS PO 02/24/21 21:00 03/08/21 20:40 Lisinopril (Prinivil) 10 mg DAILY PO 02/25/21 09:00 03/08/21 08:41 Memantine (Namenda) 10 mg BID PO 02/24/21 21:00 03/08/21 20:40 Metoprolol Succinate (Toprol Xl) 50 mg HS PO 02/24/21 21:00 03/08/21 20:41 Nifedipine (Procardia Xl) 30 mg DAILY PO 02/25/21 09:00 03/08/21 08:41 Quetiapine Fumarate (SEROquel) 25 mg BID PO 02/24/21 21:00 03/06/21 10:45 DC 03/06/21 08:37 Sertraline HCl (Zoloft) 50 mg DAILY PO 02/25/21 09:00 03/08/21 08:40 Artificial Tears (Refresh Classic) 1 drop BID OU 02/24/21 21:00 03/08/21 20:39 Vitamin D (Vitamin D3) 25 unit DAILY PO 02/25/21 09:00 02/25/21 10:32 DC Cetirizine HCl (ZyrTEC) 10 mg DAILY PO 02/25/21 09:00 03/08/21 08:40 Melatonin (Melatonin) 3 mg QHS PO 02/24/21 21:00 03/08/21 20:40 Nystatin (Nystop) 1 alis PRN BID PRN TP groin irritation/yeast 02/24/21 23:00 02/25/21 05:10 Vitamin D (Vitamin D3) 1,000 unit DAILY PO 02/25/21 10:45 03/08/21 08:41 Divalproex Sodium (Depakote Sprinkles) 125 mg 0900,1700 PO 03/01/21 09:00 03/04/21 18:15 DC 03/04/21 17:13 Divalproex Sodium (Depakote Sprinkles) 250 mg 0900,1700 PO 03/05/21 09:00 03/08/21 17:08 Quetiapine Fumarate (SEROquel) 25 mg 0900,1300,1700 PO 03/06/21 13:00 03/08/21 17:08 I have reviewed the current psychotropics carefully including drug interactions. Risk benefit ratio favors no change other than as noted in my dictated progress note. Diagnosis: Problems: (1) Dementia with behavioral disturbance (2) Impulse control disorder, unspecified (3) Anxiety disorder, unspecified (4) Dementia, vascular, with depression (5) Dementia, vascular, with delusions (6) Dementia in Alzheimer's disease with depression (7) Dementia in Alzheimer's disease with delusions (8) Major neurocognitive disorder JENNIFER HANSON MD Mar 08, 2021 21:02
[2021-03-09 06:30] VITALS: BP 122/76
[2021-03-09] MEDS: DIVALPROEX 125 MG CAP.SPRINK PO SCH ×2 (09:19→18:06)
[2021-03-09] MEDS: CHOLECALCIFEROL (VITAMIN D3) 1,000 UNIT TABLET PO SCH (09:19)
[2021-03-09] MEDS: MEMANTINE 10 MG TABLET. PO SCH ×2 (09:19→19:46)
[2021-03-09] MEDS: POLYVINYL ALCOHOL/POVIDONE/PF OPHTH SOLUTION DROPERETTE. OU SCH ×2 (09:19→19:45)
[2021-03-09] MEDS: CETIRIZINE HCL 10 MG TABLET PO SCH (09:20)
[2021-03-09] MEDS: LISINOPRIL 10 MG TABLET PO SCH (09:20)
[2021-03-09] MEDS: QUEtiapine 25 MG TABLET. PO SCH ×3 (09:20→18:06)
[2021-03-09] MEDS: SERTRALINE 50 MG TABLET. PO SCH (09:20)
[2021-03-09] MEDS: DICLOFENAC SODIUM 1% TOPICAL GEL 100GM TUBE. TP SCH ×2 (09:20→19:45)
[2021-03-09 16:14] VITALS: BP 109/71
[2021-03-09] MEDS: DONEPEZIL HCL 5 MG TABLET. PO SCH (19:45)
[2021-03-09] MEDS: MELATONIN 3 MG TABLET PO SCH (19:46)
[2021-03-09] MEDS: METOPROLOL SUCC 24HR ER 50 MG TAB.ER.24H. PO SCH (19:47)
--- NOTE | 2021-03-09 20:34 | PDOC ---
Exam Note: Jack Note: Please also refer to the separate dictated note~for this date of service dictated separately.~Patient seen individually. Discussed the patient with Nursing staff reviewed the chart.~Reviewed interim history and current functioning. Reviewed vital signs,~Labs/ Radiology~and current medications noted below. Continue current treatment with the changes noted in the dictated addendum note Assessment: Vital Signs/I&O: Vital Signs Date Time Temp Pulse Resp B/P (MAP) Pulse Ox O2 Delivery O2 Flow Rate FiO2 03/09/21 19:47 83 135/72 03/09/21 16:14 98.6 18 93 Room Air I & O 03/08/21 03/08/21 03/09/21 15:00 23:00 07:00 Intake Total 720 ml 600 ml Balance 720 ml 600 ml Current Medications: Meds: Current Medications Medications (Trade) Dose Ordered Sig/Geoffrey Route PRN Reason Start Time Stop Time Status Last Admin Dose Admin Acetaminophen (Tylenol) 650 mg PRN Q6HRS PRN PO MILD PAIN / TEMP > 100.3'F 02/24/21 16:45 Multi-Ingredient Ointment (Analgesic [place]) 1 alis PRN QID PRN TP MUSCLE PAIN 02/24/21 16:45 Al Hydroxide/Mg Hydroxide (Mylanta Plus Xs) 15 ml PRN AFTMEALHC PRN PO DYSPEPSIA 02/24/21 16:45 Magnesium Hydroxide (Milk Of Magnesia) 2,400 mg PRN QHS PRN PO CONSTIPATION 02/24/21 16:45 Diclofenac Sodium (Voltaren) 1 alis BID TP 02/24/21 21:00 03/09/21 19:45 Donepezil HCl (Aricept) 15 mg HS PO 02/24/21 21:00 03/09/21 19:45 Lisinopril (Prinivil) 10 mg DAILY PO 02/25/21 09:00 03/09/21 09:20 Memantine (Namenda) 10 mg BID PO 02/24/21 21:00 03/09/21 19:46 Metoprolol Succinate (Toprol Xl) 50 mg HS PO 02/24/21 21:00 03/09/21 19:47 Nifedipine (Procardia Xl) 30 mg DAILY PO 02/25/21 09:00 03/09/21 09:20 Quetiapine Fumarate (SEROquel) 25 mg BID PO 02/24/21 21:00 03/06/21 10:45 DC 03/06/21 08:37 Sertraline HCl (Zoloft) 50 mg DAILY PO 02/25/21 09:00 03/09/21 09:20 Artificial Tears (Refresh Classic) 1 drop BID OU 02/24/21 21:00 03/09/21 19:45 Vitamin D (Vitamin D3) 25 unit DAILY PO 02/25/21 09:00 02/25/21 10:32 DC Cetirizine HCl (ZyrTEC) 10 mg DAILY PO 02/25/21 09:00 03/09/21 09:20 Melatonin (Melatonin) 3 mg QHS PO 02/24/21 21:00 03/09/21 19:46 Nystatin (Nystop) 1 alis PRN BID PRN TP groin irritation/yeast 02/24/21 23:00 02/25/21 05:10 Vitamin D (Vitamin D3) 1,000 unit DAILY PO 02/25/21 10:45 03/09/21 09:19 Divalproex Sodium (Depakote Sprinkles) 125 mg 0900,1700 PO 03/01/21 09:00 03/04/21 18:15 DC 03/04/21 17:13 Divalproex Sodium (Depakote Sprinkles) 250 mg 0900,1700 PO 03/05/21 09:00 03/09/21 18:06 Quetiapine Fumarate (SEROquel) 25 mg 0900,1300,1700 PO 03/06/21 13:00 03/09/21 18:06 I have reviewed the current psychotropics carefully including drug interactions. Risk benefit ratio favors no change other than as noted in my dictated progress note. Diagnosis: Problems: (1) Dementia with behavioral disturbance (2) Impulse control disorder, unspecified (3) Anxiety disorder, unspecified (4) Dementia, vascular, with depression (5) Dementia, vascular, with delusions (6) Dementia in Alzheimer's disease with depression (7) Dementia in Alzheimer's disease with delusions (8) Major neurocognitive disorder JENNIFER HANOSN MD Mar 09, 2021 20:33
[2021-03-10 06:04] VITALS: BP 112/72
[2021-03-10] MEDS: LISINOPRIL 10 MG TABLET PO SCH (08:26)
[2021-03-10] MEDS: MEMANTINE 10 MG TABLET. PO SCH ×2 (08:26→20:05)
[2021-03-10] MEDS: QUEtiapine 25 MG TABLET. PO SCH ×3 (08:26→17:18)
[2021-03-10] MEDS: CHOLECALCIFEROL (VITAMIN D3) 1,000 UNIT TABLET PO SCH (08:26)
[2021-03-10] MEDS: SERTRALINE 50 MG TABLET. PO SCH (08:27)
[2021-03-10] MEDS: DIVALPROEX 125 MG CAP.SPRINK PO SCH ×2 (08:27→17:18)
[2021-03-10] MEDS: CETIRIZINE HCL 10 MG TABLET PO SCH (08:27)
[2021-03-10] MEDS: POLYVINYL ALCOHOL/POVIDONE/PF OPHTH SOLUTION DROPERETTE. OU SCH ×2 (08:28→20:05)
[2021-03-10] MEDS: DICLOFENAC SODIUM 1% TOPICAL GEL 100GM TUBE. TP SCH ×2 (08:28→20:07)
[2021-03-10 15:46] VITALS: BP 137/99
[2021-03-10] MEDS: DONEPEZIL HCL 5 MG TABLET. PO SCH (20:03)
[2021-03-10] MEDS: METOPROLOL SUCC 24HR ER 50 MG TAB.ER.24H. PO SCH (20:05)
[2021-03-10] MEDS: MELATONIN 3 MG TABLET PO SCH (20:05)
--- NOTE | 2021-03-10 20:50 | PDOC ---
Exam Note: Jcak Note: This note is a late entry for 03/08/2021 covers elements not covered in my initial note. Subjective: The patient was seen individually in the evening of 03/08/2021 with New STEVENSON, discussed and reviewed the chart. The patient slept 8 hours previous night. Patient is not sure of any other sexually inappropriate behaviors. Review of Systems: No CV, , pulmonary, eye system symptoms on review. Reliability poor. Mental Status Exam: The patient is oriented to herself. I met with her in her room. Insight and judgement, recent and remote memory, attention and concentration, fund of knowledge is poor consistent with her diagnoses. Laboratory Data: Reviewed. Impression: Major neurocognitive disorder Alzheimer, vascular with delusions, depression, behavioral disturbance. Anxiety disorder unspecified. Impulse control disorder unspecified. Plan: Maintain rest of the psychotropics unchanged. Assessment: Vital Signs/I&O: Vital Signs Date Time Temp Pulse Resp B/P (MAP) Pulse Ox O2 Delivery O2 Flow Rate FiO2 03/10/21 20:05 71 137/99 03/10/21 15:46 97.9 16 94 03/10/21 06:04 Room Air I & O0 03/09/21 03/09/21 03/10/21 15:00 23:00 07:00 Intake Total 840 ml 360 ml Balance 840 ml 360 ml Current Medications: Meds: Current Medications Medications (Trade) Dose Ordered Sig/Geoffrey Route PRN Reason Start Time Stop Time Status Last Admin Dose Admin Acetaminophen (Tylenol) 650 mg PRN Q6HRS PRN PO MILD PAIN / TEMP > 100.3'F 02/24/21 16:45 Multi-Ingredient Ointment (Analgesic [place]) 1 alis PRN QID PRN TP MUSCLE PAIN 02/24/21 16:45 Al Hydroxide/Mg Hydroxide (Mylanta Plus Xs) 15 ml PRN AFTMEALHC PRN PO DYSPEPSIA 02/24/21 16:45 Magnesium Hydroxide (Milk Of Magnesia) 2,400 mg PRN QHS PRN PO CONSTIPATION 02/24/21 16:45 Diclofenac Sodium (Voltaren) 1 alis BID TP 02/24/21 21:00 03/10/21 20:07 Donepezil HCl (Aricept) 15 mg HS PO 02/24/21 21:00 03/10/21 20:03 Lisinopril (Prinivil) 10 mg DAILY PO 02/25/21 09:00 03/10/21 08:26 Memantine (Namenda) 10 mg BID PO 02/24/21 21:00 03/10/21 20:05 Metoprolol Succinate (Toprol Xl) 50 mg HS PO 02/24/21 21:00 03/10/21 20:05 Nifedipine (Procardia Xl) 30 mg DAILY PO 02/25/21 09:00 03/10/21 08:27 Quetiapine Fumarate (SEROquel) 25 mg BID PO 02/24/21 21:00 03/06/21 10:45 DC 03/06/21 08:37 Sertraline HCl (Zoloft) 50 mg DAILY PO 02/25/21 09:00 03/10/21 08:27 Artificial Tears (Refresh Classic) 1 drop BID OU 02/24/21 21:00 03/10/21 20:05 Vitamin D (Vitamin D3) 25 unit DAILY PO 02/25/21 09:00 02/25/21 10:32 DC Cetirizine HCl (ZyrTEC) 10 mg DAILY PO 02/25/21 09:00 03/10/21 08:27 Melatonin (Melatonin) 3 mg QHS PO 02/24/21 21:00 03/10/21 20:05 Nystatin (Nystop) 1 alis PRN BID PRN TP groin irritation/yeast 02/24/21 23:00 02/25/21 05:10 Vitamin D (Vitamin D3) 1,000 unit DAILY PO 02/25/21 10:45 03/10/21 08:26 Divalproex Sodium (Depakote Sprinkles) 125 mg 0900,1700 PO 03/01/21 09:00 03/04/21 18:15 DC 03/04/21 17:13 Divalproex Sodium (Depakote Sprinkles) 250 mg 0900,1700 PO 03/05/21 09:00 03/10/21 17:18 Quetiapine Fumarate (SEROquel) 25 mg 0900,1300,1700 PO 03/06/21 13:00 03/10/21 17:18 I have reviewed the current psychotropics carefully including drug interactions. Risk benefit ratio favors no change other than as noted in my dictated progress note. Diagnosis: Problems: (1) Dementia with behavioral disturbance (2) Impulse control disorder, unspecified (3) Anxiety disorder, unspecified (4) Dementia, vascular, with depression (5) Dementia, vascular, with delusions (6) Dementia in Alzheimer's disease with depression (7) Dementia in Alzheimer's disease with delusions (8) Major neurocognitive disorder JENNIFER HANSON MD Mar 10, 2021 20:50
--- NOTE | 2021-03-10 21:12 | PDOC ---
Exam Note: Jack Note: Please also refer to the separate dictated note~for this date of service dictated separately.~Patient seen individually. Discussed the patient with Nursing staff reviewed the chart.~Reviewed interim history and current functioning. Reviewed vital signs,~Labs/ Radiology~and current medications noted below. Continue current treatment with the changes noted in the dictated addendum note Assessment: Vital Signs/I&O: Vital Signs Date Time Temp Pulse Resp B/P (MAP) Pulse Ox O2 Delivery O2 Flow Rate FiO2 03/10/21 20:05 71 137/99 03/10/21 15:46 97.9 16 94 03/10/21 06:04 Room Air I & O 03/09/21 03/09/21 03/10/21 15:00 23:00 07:00 Intake Total 840 ml 360 ml Balance 840 ml 360 ml Current Medications: Meds: Current Medications Medications (Trade) Dose Ordered Sig/Geoffrey Route PRN Reason Start Time Stop Time Status Last Admin Dose Admin Acetaminophen (Tylenol) 650 mg PRN Q6HRS PRN PO MILD PAIN / TEMP > 100.3'F 02/24/21 16:45 Multi-Ingredient Ointment (Analgesic [place]) 1 alis PRN QID PRN TP MUSCLE PAIN 02/24/21 16:45 Al Hydroxide/Mg Hydroxide (Mylanta Plus Xs) 15 ml PRN AFTMEALHC PRN PO DYSPEPSIA 02/24/21 16:45 Magnesium Hydroxide (Milk Of Magnesia) 2,400 mg PRN QHS PRN PO CONSTIPATION 02/24/21 16:45 Diclofenac Sodium (Voltaren) 1 alis BID TP 02/24/21 21:00 03/10/21 20:07 Donepezil HCl (Aricept) 15 mg HS PO 02/24/21 21:00 03/10/21 20:03 Lisinopril (Prinivil) 10 mg DAILY PO 02/25/21 09:00 03/10/21 08:26 Memantine (Namenda) 10 mg BID PO 02/24/21 21:00 03/10/21 20:05 Metoprolol Succinate (Toprol Xl) 50 mg HS PO 02/24/21 21:00 03/10/21 20:05 Nifedipine (Procardia Xl) 30 mg DAILY PO 02/25/21 09:00 03/10/21 08:27 Quetiapine Fumarate (SEROquel) 25 mg BID PO 02/24/21 21:00 03/06/21 10:45 DC 03/06/21 08:37 Sertraline HCl (Zoloft) 50 mg DAILY PO 02/25/21 09:00 03/10/21 08:27 Artificial Tears (Refresh Classic) 1 drop BID OU 02/24/21 21:00 03/10/21 20:05 Vitamin D (Vitamin D3) 25 unit DAILY PO 02/25/21 09:00 02/25/21 10:32 DC Cetirizine HCl (ZyrTEC) 10 mg DAILY PO 02/25/21 09:00 03/10/21 08:27 Melatonin (Melatonin) 3 mg QHS PO 02/24/21 21:00 03/10/21 20:05 Nystatin (Nystop) 1 alis PRN BID PRN TP groin irritation/yeast 02/24/21 23:00 02/25/21 05:10 Vitamin D (Vitamin D3) 1,000 unit DAILY PO 02/25/21 10:45 03/10/21 08:26 Divalproex Sodium (Depakote Sprinkles) 125 mg 0900,1700 PO 03/01/21 09:00 03/04/21 18:15 DC 03/04/21 17:13 Divalproex Sodium (Depakote Sprinkles) 250 mg 0900,1700 PO 03/05/21 09:00 03/10/21 17:18 Quetiapine Fumarate (SEROquel) 25 mg 0900,1300,1700 PO 03/06/21 13:00 03/10/21 17:18 I have reviewed the current psychotropics carefully including drug interactions. Risk benefit ratio favors no change other than as noted in my dictated progress note. Diagnosis: Problems: (1) Dementia with behavioral disturbance (2) Impulse control disorder, unspecified (3) Anxiety disorder, unspecified (4) Dementia, vascular, with depression (5) Dementia, vascular, with delusions (6) Dementia in Alzheimer's disease with depression (7) Dementia in Alzheimer's disease with delusions (8) Major neurocognitive disorder JENNIFER HANSON MD Mar 10, 2021 21:12
--- NOTE | 2021-03-10 21:12 | PDOC ---
Exam Note: Jack Note: This note is a late entry for 03/09/2021 covers elements not covered in my initial note. Subjective: The patient was seen individually in the evening of 03/09/2021 with Tico STEVENSON, discussed and reviewed the chart. The patient slept 6-1/2 hours previous night. I met with her in her room. She remains confused, not agitated or aggressive. Review of Systems: No CV, , pulmonary, eye system symptoms on review. Reliability poor. Mental Status Exam: The patient is oriented to herself. Insight and judgement, recent and remote memory, attention and concentration, fund of knowledge is poor consistent with her diagnoses. Laboratory Data: Reviewed. Impression: Major neurocognitive disorder Alzheimer, vascular with delusions, depression, behavioral disturbance. Anxiety disorder unspecified. Impulse control disorder unspecified. Plan: Maintain rest of the psychotropics unchanged. Assessment: Vital Signs/I&O: Vital Signs Date Time Temp Pulse Resp B/P (MAP) Pulse Ox O2 Delivery O2 Flow Rate FiO2 03/10/21 20:05 71 137/99 03/10/21 15:46 97.9 16 94 03/10/21 06:04 Room Air I & O 03/09/21 03/09/21 03/10/21 15:00 23:00 07:00 Intake Total 840 ml 360 ml Balance 840 ml 360 ml Current Medications: Meds: Current Medications Medications (Trade) Dose Ordered Sig/Geoffrey Route PRN Reason Start Time Stop Time Status Last Admin Dose Admin Acetaminophen (Tylenol) 650 mg PRN Q6HRS PRN PO MILD PAIN / TEMP > 100.3'F 02/24/21 16:45 Multi-Ingredient Ointment (Analgesic [place]) 1 alis PRN QID PRN TP MUSCLE PAIN 02/24/21 16:45 Al Hydroxide/Mg Hydroxide (Mylanta Plus Xs) 15 ml PRN AFTMEALHC PRN PO DYSPEPSIA 02/24/21 16:45 Magnesium Hydroxide (Milk Of Magnesia) 2,400 mg PRN QHS PRN PO CONSTIPATION 02/24/21 16:45 Diclofenac Sodium (Voltaren) 1 alis BID TP 02/24/21 21:00 03/10/21 20:07 Donepezil HCl (Aricept) 15 mg HS PO 02/24/21 21:00 03/10/21 20:03 Lisinopril (Prinivil) 10 mg DAILY PO 02/25/21 09:00 03/10/21 08:26 Memantine (Namenda) 10 mg BID PO 02/24/21 21:00 03/10/21 20:05 Metoprolol Succinate (Toprol Xl) 50 mg HS PO 02/24/21 21:00 03/10/21 20:05 Nifedipine (Procardia Xl) 30 mg DAILY PO 02/25/21 09:00 03/10/21 08:27 Quetiapine Fumarate (SEROquel) 25 mg BID PO 02/24/21 21:00 03/06/21 10:45 DC 03/06/21 08:37 Sertraline HCl (Zoloft) 50 mg DAILY PO 02/25/21 09:00 03/10/21 08:27 Artificial Tears (Refresh Classic) 1 drop BID OU 02/24/21 21:00 03/10/21 20:05 Vitamin D (Vitamin D3) 25 unit DAILY PO 02/25/21 09:00 02/25/21 10:32 DC Cetirizine HCl (ZyrTEC) 10 mg DAILY PO 02/25/21 09:00 03/10/21 08:27 Melatonin (Melatonin) 3 mg QHS PO 02/24/21 21:00 03/10/21 20:05 Nystatin (Nystop) 1 alis PRN BID PRN TP groin irritation/yeast 02/24/21 23:00 02/25/21 05:10 Vitamin D (Vitamin D3) 1,000 unit DAILY PO 02/25/21 10:45 03/10/21 08:26 Divalproex Sodium (Depakote Sprinkles) 125 mg 0900,1700 PO 03/01/21 09:00 03/04/21 18:15 DC 03/04/21 17:13 Divalproex Sodium (Depakote Sprinkles) 250 mg 0900,1700 PO 03/05/21 09:00 03/10/21 17:18 Quetiapine Fumarate (SEROquel) 25 mg 0900,1300,1700 PO 03/06/21 13:00 03/10/21 17:18 I have reviewed the current psychotropics carefully including drug interactions. Risk benefit ratio favors no change other than as noted in my dictated progress note. Diagnosis: Problems: (1) Dementia with behavioral disturbance (2) Impulse control disorder, unspecified (3) Anxiety disorder, unspecified (4) Dementia, vascular, with depression (5) Dementia, vascular, with delusions (6) Dementia in Alzheimer's disease with depression (7) Dementia in Alzheimer's disease with delusions (8) Major neurocognitive disorder JENNIFER HANSON MD Mar 10, 2021 21:12
[2021-03-11 05:38] VITALS: BP 124/78
[2021-03-11] MEDS: QUEtiapine 25 MG TABLET. PO SCH ×3 (08:09→17:11)
[2021-03-11] MEDS: LISINOPRIL 10 MG TABLET PO SCH (08:09)
[2021-03-11] MEDS: SERTRALINE 50 MG TABLET. PO SCH (08:09)
[2021-03-11] MEDS: CHOLECALCIFEROL (VITAMIN D3) 1,000 UNIT TABLET PO SCH (08:09)
[2021-03-11] MEDS: DIVALPROEX 125 MG CAP.SPRINK PO SCH ×2 (08:09→17:12)
[2021-03-11] MEDS: MEMANTINE 10 MG TABLET. PO SCH ×2 (08:09→20:28)
[2021-03-11] MEDS: CETIRIZINE HCL 10 MG TABLET PO SCH (08:09)
[2021-03-11] MEDS: DICLOFENAC SODIUM 1% TOPICAL GEL 100GM TUBE. TP SCH ×2 (08:10→20:29)
[2021-03-11] MEDS: POLYVINYL ALCOHOL/POVIDONE/PF OPHTH SOLUTION DROPERETTE. OU SCH ×2 (08:10→20:29)
[2021-03-11 15:23] VITALS: BP 134/78
[2021-03-11] MEDS: DONEPEZIL HCL 5 MG TABLET. PO SCH (20:28)
[2021-03-11] MEDS: MELATONIN 3 MG TABLET PO SCH (20:28)
[2021-03-11] MEDS: METOPROLOL SUCC 24HR ER 50 MG TAB.ER.24H. PO SCH (20:29)
--- NOTE | 2021-03-11 20:49 | PDOC ---
Exam Note: Jack Note: Please also refer to the separate dictated note~for this date of service dictated separately.~Patient seen individually. Discussed the patient with Nursing staff reviewed the chart.~Reviewed interim history and current functioning. Reviewed vital signs,~Labs/ Radiology~and current medications noted below. Continue current treatment with the changes noted in the dictated addendum note Assessment: Vital Signs/I&O: Vital Signs Date Time Temp Pulse Resp B/P (MAP) Pulse Ox O2 Delivery O2 Flow Rate FiO2 03/11/21 20:29 56 134/78 03/11/21 15:23 97.0 16 95 Room Air I & O 03/10/21 03/10/21 03/11/21 15:00 23:00 07:00 Intake Total 600 ml 460 ml Balance 600 ml 460 ml Current Medications: Meds: Current Medications Medications (Trade) Dose Ordered Sig/Geoffrey Route PRN Reason Start Time Stop Time Status Last Admin Dose Admin Acetaminophen (Tylenol) 650 mg PRN Q6HRS PRN PO MILD PAIN / TEMP > 100.3'F 02/24/21 16:45 Multi-Ingredient Ointment (Analgesic [place]) 1 alis PRN QID PRN TP MUSCLE PAIN 02/24/21 16:45 Al Hydroxide/Mg Hydroxide (Mylanta Plus Xs) 15 ml PRN AFTMEALHC PRN PO DYSPEPSIA 02/24/21 16:45 Magnesium Hydroxide (Milk Of Magnesia) 2,400 mg PRN QHS PRN PO CONSTIPATION 02/24/21 16:45 Diclofenac Sodium (Voltaren) 1 alis BID TP 02/24/21 21:00 03/11/21 20:29 Donepezil HCl (Aricept) 15 mg HS PO 02/24/21 21:00 03/11/21 20:28 Lisinopril (Prinivil) 10 mg DAILY PO 02/25/21 09:00 03/11/21 08:09 Memantine (Namenda) 10 mg BID PO 02/24/21 21:00 03/11/21 20:28 Metoprolol Succinate (Toprol Xl) 50 mg HS PO 02/24/21 21:00 03/11/21 20:29 Nifedipine (Procardia Xl) 30 mg DAILY PO 02/25/21 09:00 03/11/21 08:10 Quetiapine Fumarate (SEROquel) 25 mg BID PO 02/24/21 21:00 03/06/21 10:45 DC 03/06/21 08:37 Sertraline HCl (Zoloft) 50 mg DAILY PO 02/25/21 09:00 03/11/21 08:09 Artificial Tears (Refresh Classic) 1 drop BID OU 02/24/21 21:00 03/11/21 20:29 Vitamin D (Vitamin D3) 25 unit DAILY PO 02/25/21 09:00 02/25/21 10:32 DC Cetirizine HCl (ZyrTEC) 10 mg DAILY PO 02/25/21 09:00 03/11/21 08:09 Melatonin (Melatonin) 3 mg QHS PO 02/24/21 21:00 03/11/21 20:28 Nystatin (Nystop) 1 alis PRN BID PRN TP groin irritation/yeast 02/24/21 23:00 02/25/21 05:10 Vitamin D (Vitamin D3) 1,000 unit DAILY PO 02/25/21 10:45 03/11/21 08:09 Divalproex Sodium (Depakote Sprinkles) 125 mg 0900,1700 PO 03/01/21 09:00 03/04/21 18:15 DC 03/04/21 17:13 Divalproex Sodium (Depakote Sprinkles) 250 mg 0900,1700 PO 03/05/21 09:00 03/11/21 17:12 Quetiapine Fumarate (SEROquel) 25 mg 0900,1300,1700 PO 03/06/21 13:00 03/11/21 17:11 I have reviewed the current psychotropics carefully including drug interactions. Risk benefit ratio favors no change other than as noted in my dictated progress note. Diagnosis: Problems: (1) Dementia with behavioral disturbance (2) Impulse control disorder, unspecified (3) Anxiety disorder, unspecified (4) Dementia, vascular, with depression (5) Dementia, vascular, with delusions (6) Dementia in Alzheimer's disease with depression (7) Dementia in Alzheimer's disease with delusions (8) Major neurocognitive disorder JENNIFER HANSON MD Mar 11, 2021 20:49
[2021-03-12 06:09] VITALS: BP 125/66
--- NOTE | 2021-03-12 07:06 | PDOC ---
Exam Note: Jack Note: This note is a late entry for 03/10/2021 covers elements not covered in my initial note. Subjective: The patient was seen individually in the evening of 03/10/2021 with Carolyn STEVENSON, discussed and reviewed the chart. The patient slept 8-3/4 hours previous night. I met with her in her room. She remains confused, but not agitated or aggressive. No sexually inappropriate behaviors noted. Review of Systems: No CV, , pulmonary, eye system symptoms on review. Reliability poor. Mental Status Exam: The patient is oriented to herself. She is very pleasant and interactive, not very verbal but it is typical for her. Insight and judgement, recent and remote memory, attention and concentration, fund of knowledge is poor consistent with her diagnoses. Laboratory Data: Reviewed. Impression: Major neurocognitive disorder Alzheimer, vascular with delusions, depression, behavioral disturbance. Anxiety disorder unspecified. Impulse control disorder unspecified. Plan: Maintain rest of the psychotropics unchanged. Assessment: Vital Signs/I&O: Vital Signs Date Time Temp Pulse Resp B/P (MAP) Pulse Ox O2 Delivery O2 Flow Rate FiO2 03/12/21 06:09 97.5 53 18 125/66 (85) 92 03/11/21 15:23 Room Air I & O 03/11/21 03/11/21 03/12/21 15:00 23:00 07:00 Intake Total 600 ml 340 ml Balance 600 ml 340 ml Current Medications: Meds: Current Medications Medications (Trade) Dose Ordered Sig/Geoffrey Route PRN Reason Start Time Stop Time Status Last Admin Dose Admin Acetaminophen (Tylenol) 650 mg PRN Q6HRS PRN PO MILD PAIN / TEMP > 100.3'F 02/24/21 16:45 Multi-Ingredient Ointment (Analgesic [place]) 1 alis PRN QID PRN TP MUSCLE PAIN 02/24/21 16:45 Al Hydroxide/Mg Hydroxide (Mylanta Plus Xs) 15 ml PRN AFTMEALHC PRN PO DYSPEPSIA 02/24/21 16:45 Magnesium Hydroxide (Milk Of Magnesia) 2,400 mg PRN QHS PRN PO CONSTIPATION 02/24/21 16:45 Diclofenac Sodium (Voltaren) 1 alis BID TP 02/24/21 21:00 03/11/21 20:29 Donepezil HCl (Aricept) 15 mg HS PO 02/24/21 21:00 03/11/21 20:28 Lisinopril (Prinivil) 10 mg DAILY PO 02/25/21 09:00 03/11/21 08:09 Memantine (Namenda) 10 mg BID PO 02/24/21 21:00 03/11/21 20:28 Metoprolol Succinate (Toprol Xl) 50 mg HS PO 02/24/21 21:00 03/11/21 20:29 Nifedipine (Procardia Xl) 30 mg DAILY PO 02/25/21 09:00 03/11/21 08:10 Quetiapine Fumarate (SEROquel) 25 mg BID PO 02/24/21 21:00 03/06/21 10:45 DC 03/06/21 08:37 Sertraline HCl (Zoloft) 50 mg DAILY PO 02/25/21 09:00 03/11/21 08:09 Artificial Tears (Refresh Classic) 1 drop BID OU 02/24/21 21:00 03/11/21 20:29 Vitamin D (Vitamin D3) 25 unit DAILY PO 02/25/21 09:00 02/25/21 10:32 DC Cetirizine HCl (ZyrTEC) 10 mg DAILY PO 02/25/21 09:00 03/11/21 08:09 Melatonin (Melatonin) 3 mg QHS PO 02/24/21 21:00 03/11/21 20:28 Nystatin (Nystop) 1 alis PRN BID PRN TP groin irritation/yeast 02/24/21 23:00 02/25/21 05:10 Vitamin D (Vitamin D3) 1,000 unit DAILY PO 02/25/21 10:45 03/11/21 08:09 Divalproex Sodium (Depakote Sprinkles) 125 mg 0900,1700 PO 03/01/21 09:00 03/04/21 18:15 DC 03/04/21 17:13 Divalproex Sodium (Depakote Sprinkles) 250 mg 0900,1700 PO 03/05/21 09:00 03/11/21 17:12 Quetiapine Fumarate (SEROquel) 25 mg 0900,1300,1700 PO 03/06/21 13:00 03/11/21 17:11 I have reviewed the current psychotropics carefully including drug interactions. Risk benefit ratio favors no change other than as noted in my dictated progress note. Diagnosis: Problems: (1) Dementia with behavioral disturbance (2) Impulse control disorder, unspecified (3) Anxiety disorder, unspecified (4) Dementia, vascular, with depression (5) Dementia, vascular, with delusions (6) Dementia in Alzheimer's disease with depression (7) Dementia in Alzheimer's disease with delusions (8) Major neurocognitive disorder JENNIFER HANSON MD Mar 12, 2021 07:06
--- NOTE | 2021-03-12 07:28 | PDOC ---
Exam Note: Jack Note: This note is a late entry for 03/11/2021 covers elements not covered in my initial note. Subjective: The patient was seen individually in the evening of 03/11/2021 with Kelly STEVENSON, discussed and reviewed the chart. The patient slept 8-1/2 hours previous night. Again I met with her in her room. She remains confused, not agitated or aggressive or sexually inappropriate. Review of Systems: No CV, , pulmonary, eye system symptoms on review. Reliability poor. Mental Status Exam: The patient is oriented to herself. Insight and judgement, recent and remote memory, attention and concentration, fund of knowledge is poor consistent with her diagnoses. Laboratory Data: Reviewed. Impression: Major neurocognitive disorder Alzheimer, vascular with delusions, depression, behavioral disturbance. Anxiety disorder unspecified. Impulse control disorder unspecified. Plan: Maintain rest of the psychotropics unchanged. Assessment: Vital Signs/I&O: Vital Signs Date Time Temp Pulse Resp B/P (MAP) Pulse Ox O2 Delivery O2 Flow Rate FiO2 03/12/21 06:09 97.5 53 18 125/66 (85) 92 03/11/21 15:23 Room Air I & O 03/11/21 03/11/21 03/12/21 15:00 23:00 07:00 Intake Total 600 ml 340 ml Balance 600 ml 340 ml Current Medications: Meds: Current Medications Medications (Trade) Dose Ordered Sig/Geoffrey Route PRN Reason Start Time Stop Time Status Last Admin Dose Admin Acetaminophen (Tylenol) 650 mg PRN Q6HRS PRN PO MILD PAIN / TEMP > 100.3'F 02/24/21 16:45 Multi-Ingredient Ointment (Analgesic [place]) 1 alis PRN QID PRN TP MUSCLE PAIN 02/24/21 16:45 Al Hydroxide/Mg Hydroxide (Mylanta Plus Xs) 15 ml PRN AFTMEALHC PRN PO DYSPEPSIA 02/24/21 16:45 Magnesium Hydroxide (Milk Of Magnesia) 2,400 mg PRN QHS PRN PO CONSTIPATION 02/24/21 16:45 Diclofenac Sodium (Voltaren) 1 alis BID TP 02/24/21 21:00 03/11/21 20:29 Donepezil HCl (Aricept) 15 mg HS PO 02/24/21 21:00 03/11/21 20:28 Lisinopril (Prinivil) 10 mg DAILY PO 02/25/21 09:00 03/11/21 08:09 Memantine (Namenda) 10 mg BID PO 02/24/21 21:00 03/11/21 20:28 Metoprolol Succinate (Toprol Xl) 50 mg HS PO 02/24/21 21:00 03/11/21 20:29 Nifedipine (Procardia Xl) 30 mg DAILY PO 02/25/21 09:00 03/11/21 08:10 Quetiapine Fumarate (SEROquel) 25 mg BID PO 02/24/21 21:00 03/06/21 10:45 DC 03/06/21 08:37 Sertraline HCl (Zoloft) 50 mg DAILY PO 02/25/21 09:00 03/11/21 08:09 Artificial Tears (Refresh Classic) 1 drop BID OU 02/24/21 21:00 03/11/21 20:29 Vitamin D (Vitamin D3) 25 unit DAILY PO 02/25/21 09:00 02/25/21 10:32 DC Cetirizine HCl (ZyrTEC) 10 mg DAILY PO 02/25/21 09:00 03/11/21 08:09 Melatonin (Melatonin) 3 mg QHS PO 02/24/21 21:00 03/11/21 20:28 Nystatin (Nystop) 1 alis PRN BID PRN TP groin irritation/yeast 02/24/21 23:00 02/25/21 05:10 Vitamin D (Vitamin D3) 1,000 unit DAILY PO 02/25/21 10:45 03/11/21 08:09 Divalproex Sodium (Depakote Sprinkles) 125 mg 0900,1700 PO 03/01/21 09:00 03/04/21 18:15 DC 03/04/21 17:13 Divalproex Sodium (Depakote Sprinkles) 250 mg 0900,1700 PO 03/05/21 09:00 03/11/21 17:12 Quetiapine Fumarate (SEROquel) 25 mg 0900,1300,1700 PO 03/06/21 13:00 03/11/21 17:11 I have reviewed the current psychotropics carefully including drug interactions. Risk benefit ratio favors no change other than as noted in my dictated progress note. Diagnosis: Problems: (1) Dementia with behavioral disturbance (2) Impulse control disorder, unspecified (3) Anxiety disorder, unspecified (4) Dementia, vascular, with depression (5) Dementia, vascular, with delusions (6) Dementia in Alzheimer's disease with depression (7) Dementia in Alzheimer's disease with delusions (8) Major neurocognitive disorder JENNIFER HANSON MD Mar 12, 2021 07:28
[2021-03-12] MEDS: DIVALPROEX 125 MG CAP.SPRINK PO SCH ×2 (09:10→17:22)
[2021-03-12] MEDS: SERTRALINE 50 MG TABLET. PO SCH (09:10)
[2021-03-12] MEDS: CHOLECALCIFEROL (VITAMIN D3) 1,000 UNIT TABLET PO SCH (09:10)
[2021-03-12] MEDS: MEMANTINE 10 MG TABLET. PO SCH ×2 (09:10→20:31)
[2021-03-12] MEDS: CETIRIZINE HCL 10 MG TABLET PO SCH (09:10)
[2021-03-12] MEDS: QUEtiapine 25 MG TABLET. PO SCH ×3 (09:10→17:22)
[2021-03-12] MEDS: POLYVINYL ALCOHOL/POVIDONE/PF OPHTH SOLUTION DROPERETTE. OU SCH ×2 (09:11→20:31)
[2021-03-12] MEDS: DICLOFENAC SODIUM 1% TOPICAL GEL 100GM TUBE. TP SCH ×2 (09:11→20:31)
[2021-03-12] MEDS: LISINOPRIL 10 MG TABLET PO SCH (09:11)
[2021-03-12 15:41] VITALS: BP 136/84
[2021-03-12] MEDS: MELATONIN 3 MG TABLET PO SCH (20:31)
[2021-03-12] MEDS: DONEPEZIL HCL 5 MG TABLET. PO SCH (20:31)
[2021-03-12] MEDS: METOPROLOL SUCC 24HR ER 50 MG TAB.ER.24H. PO SCH (20:31)
--- NOTE | 2021-03-12 21:06 | PDOC ---
Exam Note: Jack Note: Please also refer to the separate dictated note~for this date of service dictated separately.~Patient seen individually. Discussed the patient with Nursing staff reviewed the chart.~Reviewed interim history and current functioning. Reviewed vital signs,~Labs/ Radiology~and current medications noted below. Continue current treatment with the changes noted in the dictated addendum note Assessment: Vital Signs/I&O: Vital Signs Date Time Temp Pulse Resp B/P (MAP) Pulse Ox O2 Delivery O2 Flow Rate FiO2 03/12/21 20:31 75 136/84 03/12/21 15:41 97.6 16 94 03/11/21 15:23 Room Air I & O 03/11/21 03/11/21 03/12/21 15:00 23:00 07:00 Intake Total 600 ml 340 ml Balance 600 ml 340 ml Current Medications: Meds: Current Medications Medications (Trade) Dose Ordered Sig/Geoffrey Route PRN Reason Start Time Stop Time Status Last Admin Dose Admin Acetaminophen (Tylenol) 650 mg PRN Q6HRS PRN PO MILD PAIN / TEMP > 100.3'F 02/24/21 16:45 Multi-Ingredient Ointment (Analgesic [place]) 1 alis PRN QID PRN TP MUSCLE PAIN 02/24/21 16:45 Al Hydroxide/Mg Hydroxide (Mylanta Plus Xs) 15 ml PRN AFTMEALHC PRN PO DYSPEPSIA 02/24/21 16:45 Magnesium Hydroxide (Milk Of Magnesia) 2,400 mg PRN QHS PRN PO CONSTIPATION 02/24/21 16:45 Diclofenac Sodium (Voltaren) 1 alis BID TP 02/24/21 21:00 03/12/21 20:31 Donepezil HCl (Aricept) 15 mg HS PO 02/24/21 21:00 03/12/21 20:31 Lisinopril (Prinivil) 10 mg DAILY PO 02/25/21 09:00 03/12/21 09:11 Memantine (Namenda) 10 mg BID PO 02/24/21 21:00 03/12/21 20:31 Metoprolol Succinate (Toprol Xl) 50 mg HS PO 02/24/21 21:00 03/12/21 20:31 Nifedipine (Procardia Xl) 30 mg DAILY PO 02/25/21 09:00 03/12/21 09:10 Quetiapine Fumarate (SEROquel) 25 mg BID PO 02/24/21 21:00 03/06/21 10:45 DC 03/06/21 08:37 Sertraline HCl (Zoloft) 50 mg DAILY PO 02/25/21 09:00 03/12/21 09:10 Artificial Tears (Refresh Classic) 1 drop BID OU 02/24/21 21:00 03/12/21 20:31 Vitamin D (Vitamin D3) 25 unit DAILY PO 02/25/21 09:00 02/25/21 10:32 DC Cetirizine HCl (ZyrTEC) 10 mg DAILY PO 02/25/21 09:00 03/12/21 09:10 Melatonin (Melatonin) 3 mg QHS PO 02/24/21 21:00 03/12/21 20:31 Nystatin (Nystop) 1 alis PRN BID PRN TP groin irritation/yeast 02/24/21 23:00 02/25/21 05:10 Vitamin D (Vitamin D3) 1,000 unit DAILY PO 02/25/21 10:45 03/12/21 09:10 Divalproex Sodium (Depakote Sprinkles) 125 mg 0900,1700 PO 03/01/21 09:00 03/04/21 18:15 DC 03/04/21 17:13 Divalproex Sodium (Depakote Sprinkles) 250 mg 0900,1700 PO 03/05/21 09:00 03/12/21 17:22 Quetiapine Fumarate (SEROquel) 25 mg 0900,1300,1700 PO 03/06/21 13:00 03/12/21 17:22 I have reviewed the current psychotropics carefully including drug interactions. Risk benefit ratio favors no change other than as noted in my dictated progress note. Diagnosis: Problems: (1) Dementia with behavioral disturbance (2) Impulse control disorder, unspecified (3) Anxiety disorder, unspecified (4) Dementia, vascular, with depression (5) Dementia, vascular, with delusions (6) Dementia in Alzheimer's disease with depression (7) Dementia in Alzheimer's disease with delusions (8) Major neurocognitive disorder EJNNIFER HANSNO MD Mar 12, 2021 21:06
[2021-03-13 06:22] VITALS: BP 123/70
--- NOTE | 2021-03-13 07:22 | PDOC ---
Exam Note: Jack Note: This note is a late entry for 03/12/2021 covers elements not covered in my initial note. Subjective: The patient was seen individually in the evening of 03/12/2021 with Carolyn STEVENSON, discussed and reviewed the chart. The patient slept 8 hours previous night. I met with her in her room. She remains confused, not agitated or aggressive or sexually inappropriate. Review of Systems: No CV, , pulmonary, eye system symptoms on review. R eliability poor. Mental Status Exam: The patient is oriented to herself. I met with her in her room. She was lying in bed but quite pleasant, interactive, confused. Insight and judgement, recent and remote memory, attention and concentration, fund of knowledge is poor consistent with her diagnoses. Laboratory Data: Reviewed. Impression: Major neurocognitive disorder Alzheimer, vascular with delusions, depression, behavioral disturbance. Anxiety disorder unspecified. Impulse control disorder unspecified. Plan: Maintain rest of the psychotropics unchanged. Assessment: Vital Signs/I&O: Vital Signs Date Time Temp Pulse Resp B/P (MAP) Pulse Ox O2 Delivery O2 Flow Rate FiO2 03/13/21 06:22 97.7 68 18 123/70 (87) 90 03/11/21 15:23 Room Air I & O 03/12/21 03/12/21 03/13/21 15:00 23:00 07:00 Intake Total 720 ml 360 ml Balance 720 ml 360 ml Current Medications: Meds: Current Medications Medications (Trade) Dose Ordered Sig/Geoffrey Route PRN Reason Start Time Stop Time Status Last Admin Dose Admin Acetaminophen (Tylenol) 650 mg PRN Q6HRS PRN PO MILD PAIN / TEMP > 100.3'F 02/24/21 16:45 Multi-Ingredient Ointment (Analgesic [place]) 1 alis PRN QID PRN TP MUSCLE PAIN 02/24/21 16:45 Al Hydroxide/Mg Hydroxide (Mylanta Plus Xs) 15 ml PRN AFTMEALHC PRN PO DYSPEPSIA 02/24/21 16:45 Magnesium Hydroxide (Milk Of Magnesia) 2,400 mg PRN QHS PRN PO CONSTIPATION 02/24/21 16:45 Diclofenac Sodium (Voltaren) 1 alis BID TP 02/24/21 21:00 03/12/21 20:31 Donepezil HCl (Aricept) 15 mg HS PO 02/24/21 21:00 03/12/21 20:31 Lisinopril (Prinivil) 10 mg DAILY PO 02/25/21 09:00 03/12/21 09:11 Memantine (Namenda) 10 mg BID PO 02/24/21 21:00 03/12/21 20:31 Metoprolol Succinate (Toprol Xl) 50 mg HS PO 02/24/21 21:00 03/12/21 20:31 Nifedipine (Procardia Xl) 30 mg DAILY PO 02/25/21 09:00 03/12/21 09:10 Quetiapine Fumarate (SEROquel) 25 mg BID PO 02/24/21 21:00 03/06/21 10:45 DC 03/06/21 08:37 Sertraline HCl (Zoloft) 50 mg DAILY PO 02/25/21 09:00 03/12/21 09:10 Artificial Tears (Refresh Classic) 1 drop BID OU 02/24/21 21:00 03/12/21 20:31 Vitamin D (Vitamin D3) 25 unit DAILY PO 02/25/21 09:00 02/25/21 10:32 DC Cetirizine HCl (ZyrTEC) 10 mg DAILY PO 02/25/21 09:00 03/12/21 09:10 Melatonin (Melatonin) 3 mg QHS PO 02/24/21 21:00 03/12/21 20:31 Nystatin (Nystop) 1 alis PRN BID PRN TP groin irritation/yeast 02/24/21 23:00 02/25/21 05:10 Vitamin D (Vitamin D3) 1,000 unit DAILY PO 02/25/21 10:45 03/12/21 09:10 Divalproex Sodium (Depakote Sprinkles) 125 mg 0900,1700 PO 03/01/21 09:00 03/04/21 18:15 DC 03/04/21 17:13 Divalproex Sodium (Depakote Sprinkles) 250 mg 0900,1700 PO 03/05/21 09:00 03/12/21 17:22 Quetiapine Fumarate (SEROquel) 25 mg 0900,1300,1700 PO 03/06/21 13:00 03/12/21 17:22 I have reviewed the current psychotropics carefully including drug interactions. Risk benefit ratio favors no change other than as noted in my dictated progress note. Diagnosis: Problems: (1) Dementia with behavioral disturbance (2) Impulse control disorder, unspecified (3) Anxiety disorder, unspecified (4) Dementia, vascular, with depression (5) Dementia, vascular, with delusions (6) Dementia in Alzheimer's disease with depression (7) Dementia in Alzheimer's disease with delusions (8) Major neurocognitive disorder JENNIFER HANSON MD Mar 13, 2021 07:22
[2021-03-13] MEDS: DIVALPROEX 125 MG CAP.SPRINK PO SCH ×2 (08:36→17:15)
[2021-03-13] MEDS: CETIRIZINE HCL 10 MG TABLET PO SCH (08:36)
[2021-03-13] MEDS: LISINOPRIL 10 MG TABLET PO SCH (08:36)
[2021-03-13] MEDS: CHOLECALCIFEROL (VITAMIN D3) 1,000 UNIT TABLET PO SCH (08:36)
[2021-03-13] MEDS: SERTRALINE 50 MG TABLET. PO SCH (08:37)
[2021-03-13] MEDS: POLYVINYL ALCOHOL/POVIDONE/PF OPHTH SOLUTION DROPERETTE. OU SCH ×2 (08:37→21:24)
[2021-03-13] MEDS: QUEtiapine 25 MG TABLET. PO SCH ×3 (08:37→17:15)
[2021-03-13] MEDS: DICLOFENAC SODIUM 1% TOPICAL GEL 100GM TUBE. TP SCH ×2 (08:37→21:25)
[2021-03-13] MEDS: MEMANTINE 10 MG TABLET. PO SCH ×2 (08:37→21:24)
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
[2021-03-13 16:14] VITALS: BP 120/74
--- NOTE | 2021-03-13 21:06 | PDOC ---
Exam Note: Jack Note: Please also refer to the separate dictated note~for this date of service dictated separately.~Patient seen individually. Discussed the patient with Nursing staff reviewed the chart.~Reviewed interim history and current functioning. Reviewed vital signs,~Labs/ Radiology~and current medications noted below. Continue current treatment with the changes noted in the dictated addendum note Assessment: Vital Signs/I&O: Vital Signs Date Time Temp Pulse Resp B/P (MAP) Pulse Ox O2 Delivery O2 Flow Rate FiO2 03/13/21 16:14 97.4 55 19 120/74 (89) 94 Room Air I & O 03/12/21 03/12/21 03/13/21 15:00 23:00 07:00 Intake Total 720 ml 360 ml Balance 720 ml 360 ml Current Medications: Meds: Current Medications Medications (Trade) Dose Ordered Sig/Geoffrey Route PRN Reason Start Time Stop Time Status Last Admin Dose Admin Acetaminophen (Tylenol) 650 mg PRN Q6HRS PRN PO MILD PAIN / TEMP > 100.3'F 02/24/21 16:45 Multi-Ingredient Ointment (Analgesic [place]) 1 alis PRN QID PRN TP MUSCLE PAIN 02/24/21 16:45 Al Hydroxide/Mg Hydroxide (Mylanta Plus Xs) 15 ml PRN AFTMEALHC PRN PO DYSPEPSIA 02/24/21 16:45 Magnesium Hydroxide (Milk Of Magnesia) 2,400 mg PRN QHS PRN PO CONSTIPATION 02/24/21 16:45 Diclofenac Sodium (Voltaren) 1 alis BID TP 02/24/21 21:00 03/13/21 08:37 Donepezil HCl (Aricept) 15 mg HS PO 02/24/21 21:00 03/12/21 20:31 Lisinopril (Prinivil) 10 mg DAILY PO 02/25/21 09:00 03/13/21 08:36 Memantine (Namenda) 10 mg BID PO 02/24/21 21:00 03/13/21 08:37 Metoprolol Succinate (Toprol Xl) 50 mg HS PO 02/24/21 21:00 03/12/21 20:31 Nifedipine (Procardia Xl) 30 mg DAILY PO 02/25/21 09:00 03/13/21 08:37 Quetiapine Fumarate (SEROquel) 25 mg BID PO 02/24/21 21:00 03/06/21 10:45 DC 03/06/21 08:37 Sertraline HCl (Zoloft) 50 mg DAILY PO 02/25/21 09:00 03/13/21 08:37 Artificial Tears (Refresh Classic) 1 drop BID OU 02/24/21 21:00 03/13/21 08:37 Vitamin D (Vitamin D3) 25 unit DAILY PO 02/25/21 09:00 02/25/21 10:32 DC Cetirizine HCl (ZyrTEC) 10 mg DAILY PO 02/25/21 09:00 03/13/21 08:36 Melatonin (Melatonin) 3 mg QHS PO 02/24/21 21:00 03/12/21 20:31 Nystatin (Nystop) 1 alis PRN BID PRN TP groin irritation/yeast 02/24/21 23:00 02/25/21 05:10 Vitamin D (Vitamin D3) 1,000 unit DAILY PO 02/25/21 10:45 03/13/21 08:36 Divalproex Sodium (Depakote Sprinkles) 125 mg 0900,1700 PO 03/01/21 09:00 03/04/21 18:15 DC 03/04/21 17:13 Divalproex Sodium (Depakote Sprinkles) 250 mg 0900,1700 PO 03/05/21 09:00 03/13/21 17:15 Quetiapine Fumarate (SEROquel) 25 mg 0900,1300,1700 PO 03/06/21 13:00 03/13/21 17:15 I have reviewed the current psychotropics carefully including drug interactions. Risk benefit ratio favors no change other than as noted in my dictated progress note. Diagnosis: Problems: (1) Dementia with behavioral disturbance (2) Impulse control disorder, unspecified (3) Anxiety disorder, unspecified (4) Dementia, vascular, with depression (5) Dementia, vascular, with delusions (6) Dementia in Alzheimer's disease with depression (7) Dementia in Alzheimer's disease with delusions (8) Major neurocognitive disorder JENNIFER HANSON MD Mar 13, 2021 21:06
[2021-03-13] MEDS: MELATONIN 3 MG TABLET PO SCH (21:24)
[2021-03-13] MEDS: DONEPEZIL HCL 5 MG TABLET. PO SCH (21:24)
[2021-03-13] MEDS: METOPROLOL SUCC 24HR ER 50 MG TAB.ER.24H. PO SCH (21:29)
[2021-03-14] MEDS ORDERED: METH57CR17 TP (01:25)
[2021-03-14] MEDS ORDERED: MAG30ORA2 PO (01:26)
[2021-03-14] MEDS ORDERED: MAGN400O7 PO (01:27)
[2021-03-14] MEDS ORDERED: NYST15PO9 TP (01:28)
[2021-03-14] MEDS ORDERED: ACET325T21 PO (01:30)
[2021-03-14] MEDS ORDERED: DIVA125C2 PO (01:32)
[2021-03-14 06:04] VITALS: BP 135/76
--- NOTE | 2021-03-14 07:30 | PDOC ---
Exam Note: Jack Note: This note is a late entry for 03/13/2021 covers elements not covered in my initial note. Subjective: The patient was reviewed at treatment team meeting individually in the morning on 03/13/2021 with Addie Lima, Tanya Hernandez, and Cyndie Hayward (social sciences professor), Krista, activity therapy and Carolyn STEVENSON, discussed and reviewed the chart. The patient slept 8 hours previous night. Appetite 75%. She remains confused, attended all groups, tolerating hr current psychotropics. Also discussed with Blair STEVENSON in the evening. Review of Systems: No CV, , pulmonary, eye system symptoms on review. Reliability poor. Mental Status Exam: The patient is oriented to herself. Insight and judgement, recent and remote memory, attention and concentration, fund of knowledge is poor consistent with her diagnoses. Laboratory Data: Reviewed. Impression: Major neurocognitive disorder Alzheimer, vascular with delusions, depression, behavioral disturbance. Anxiety disorder unspecified. Impulse control disorder unspecified. Plan: Maintain rest of the psychotropics unchanged. Assessment: Vital Signs/I&O: Vital Signs Date Time Temp Pulse Resp B/P (MAP) Pulse Ox O2 Delivery O2 Flow Rate FiO2 03/14/21 06:04 97.8 60 18 135/76 (95) 96 Room Air I & O 03/13/21 03/13/21 03/14/21 15:00 23:00 07:00 Intake Total 720 ml 600 ml Balance 720 ml 600 ml Current Medications: Meds: Current Medications Medications (Trade) Dose Ordered Sig/Geoffrey Route PRN Reason Start Time Stop Time Status Last Admin Dose Admin Acetaminophen (Tylenol) 650 mg PRN Q6HRS PRN PO MILD PAIN / TEMP > 100.3'F 02/24/21 16:45 Multi-Ingredient Ointment (Analgesic [place]) 1 ails PRN QID PRN TP MUSCLE PAIN 02/24/21 16:45 Al Hydroxide/Mg Hydroxide (Mylanta Plus Xs) 15 ml PRN AFTMEALHC PRN PO DYSPEPSIA 02/24/21 16:45 Magnesium Hydroxide (Milk Of Magnesia) 2,400 mg PRN QHS PRN PO CONSTIPATION 02/24/21 16:45 Diclofenac Sodium (Voltaren) 1 alis BID TP 02/24/21 21:00 03/13/21 21:25 Donepezil HCl (Aricept) 15 mg HS PO 02/24/21 21:00 03/13/21 21:24 Lisinopril (Prinivil) 10 mg DAILY PO 02/25/21 09:00 03/13/21 08:36 Memantine (Namenda) 10 mg BID PO 02/24/21 21:00 03/13/21 21:24 Metoprolol Succinate (Toprol Xl) 50 mg HS PO 02/24/21 21:00 03/13/21 21:29 Nifedipine (Procardia Xl) 30 mg DAILY PO 02/25/21 09:00 03/13/21 08:37 Quetiapine Fumarate (SEROquel) 25 mg BID PO 02/24/21 21:00 03/06/21 10:45 DC 03/06/21 08:37 Sertraline HCl (Zoloft) 50 mg DAILY PO 02/25/21 09:00 03/13/21 08:37 Artificial Tears (Refresh Classic) 1 drop BID OU 02/24/21 21:00 03/13/21 21:24 Vitamin D (Vitamin D3) 25 unit DAILY PO 02/25/21 09:00 02/25/21 10:32 DC Cetirizine HCl (ZyrTEC) 10 mg DAILY PO 02/25/21 09:00 03/13/21 08:36 Melatonin (Melatonin) 3 mg QHS PO 02/24/21 21:00 03/13/21 21:24 Nystatin (Nystop) 1 alis PRN BID PRN TP groin irritation/yeast 02/24/21 23:00 02/25/21 05:10 Vitamin D (Vitamin D3) 1,000 unit DAILY PO 02/25/21 10:45 03/13/21 08:36 Divalproex Sodium (Depakote Sprinkles) 125 mg 0900,1700 PO 03/01/21 09:00 03/04/21 18:15 DC 03/04/21 17:13 Divalproex Sodium (Depakote Sprinkles) 250 mg 0900,1700 PO 03/05/21 09:00 03/13/21 17:15 Quetiapine Fumarate (SEROquel) 25 mg 0900,1300,1700 PO 03/06/21 13:00 11/11/21 17:15 I have reviewed the current psychotropics carefully including drug interactions. Risk benefit ratio favors no change other than as noted in my dictated progress note. Diagnosis: Problems: (1) Dementia with behavioral disturbance (2) Impulse control disorder, unspecified (3) Anxiety disorder, unspecified (4) Dementia, vascular, with depression (5) Dementia, vascular, with delusions (6) Dementia in Alzheimer's disease with depression (7) Dementia in Alzheimer's disease with delusions (8) Major neurocognitive disorder JENNIFER HANSON MD Mar 14, 2021 07:30
[2021-03-14] MEDS: DIVALPROEX 125 MG CAP.SPRINK PO SCH (08:20)
[2021-03-14 08:21] VITALS: BP 135/76
[2021-03-14] MEDS: CHOLECALCIFEROL (VITAMIN D3) 1,000 UNIT TABLET PO SCH (08:21)
[2021-03-14] MEDS: POLYVINYL ALCOHOL/POVIDONE/PF OPHTH SOLUTION DROPERETTE. OU SCH (08:21)
[2021-03-14] MEDS: MEMANTINE 10 MG TABLET. PO SCH (08:21)
[2021-03-14] MEDS: LISINOPRIL 10 MG TABLET PO SCH (08:21)
[2021-03-14] MEDS: SERTRALINE 50 MG TABLET. PO SCH (08:21)
[2021-03-14] MEDS: CETIRIZINE HCL 10 MG TABLET PO SCH (08:21)
[2021-03-14] MEDS: QUEtiapine 25 MG TABLET. PO SCH (08:21)
[2021-03-14] MEDS: DICLOFENAC SODIUM 1% TOPICAL GEL 100GM TUBE. TP SCH (09:00)
--- NOTE | 2021-03-14 21:15 | PDOC ---
Exam Note: Jack Note: Please also refer to the separate dictated note~for this date of service dictated separately.~Patient seen individually. Discussed the patient with Nursing staff reviewed the chart.~Reviewed interim history and current functioning. Reviewed vital signs,~Labs/ Radiology~and current medications noted below. Continue current treatment with the changes noted in the dictated addendum note Assessment: Vital Signs/I&O: Vital Signs Date Time Temp Pulse Resp B/P (MAP) Pulse Ox O2 Delivery O2 Flow Rate FiO2 03/14/21 08:21 60 135/76 03/14/21 06:04 97.8 18 96 Room Air I & O 03/13/21 03/13/21 03/14/21 15:00 23:00 07:00 Intake Total 720 ml 600 ml Balance 720 ml 600 ml Current Medications: Meds: Current Medications Medications (Trade) Dose Ordered Sig/Geoffrey Route PRN Reason Start Time Stop Time Status Last Admin Dose Admin Acetaminophen (Tylenol) 650 mg PRN Q6HRS PRN PO MILD PAIN / TEMP > 100.3'F 02/24/21 16:45 03/14/21 12:30 DC Multi-Ingredient Ointment (Analgesic [place]) 1 alis PRN QID PRN TP MUSCLE PAIN 02/24/21 16:45 03/14/21 12:30 DC Al Hydroxide/Mg Hydroxide (Mylanta Plus Xs) 15 ml PRN AFTMEALHC PRN PO DYSPEPSIA 02/24/21 16:45 03/14/21 12:30 DC Magnesium Hydroxide (Milk Of Magnesia) 2,400 mg PRN QHS PRN PO CONSTIPATION 02/24/21 16:45 03/14/21 12:30 DC Diclofenac Sodium (Voltaren) 1 alis BID TP 02/24/21 21:00 03/14/21 12:30 DC 03/13/21 21:25 Donepezil HCl (Aricept) 15 mg HS PO 02/24/21 21:00 03/14/21 12:30 DC 03/13/21 21:24 Lisinopril (Prinivil) 10 mg DAILY PO 02/25/21 09:00 03/14/21 12:30 DC 03/14/21 08:21 Memantine (Namenda) 10 mg BID PO 02/24/21 21:00 03/14/21 12:30 DC 03/14/21 08:21 Metoprolol Succinate (Toprol Xl) 50 mg HS PO 02/24/21 21:00 03/14/21 12:30 DC 03/13/21 21:29 Nifedipine (Procardia Xl) 30 mg DAILY PO 02/25/21 09:00 03/14/21 12:30 DC 03/14/21 08:21 Quetiapine Fumarate (SEROquel) 25 mg BID PO 02/24/21 21:00 03/06/21 10:45 DC 03/06/21 08:37 Sertraline HCl (Zoloft) 50 mg DAILY PO 02/25/21 09:00 03/14/21 12:30 DC 03/14/21 08:21 Artificial Tears (Refresh Classic) 1 drop BID OU 02/24/21 21:00 03/14/21 12:30 DC 03/14/21 08:21 Vitamin D (Vitamin D3) 25 unit DAILY PO 02/25/21 09:00 02/25/21 10:32 DC Cetirizine HCl (ZyrTEC) 10 mg DAILY PO 02/25/21 09:00 03/14/21 12:30 DC 03/14/21 08:21 Melatonin (Melatonin) 3 mg QHS PO 02/24/21 21:00 03/14/21 12:30 DC 03/13/21 21:24 Nystatin (Nystop) 1 alis PRN BID PRN TP groin irritation/yeast 02/24/21 23:00 03/14/21 12:30 DC 02/25/21 05:10 Vitamin D (Vitamin D3) 1,000 unit DAILY PO 02/25/21 10:45 03/14/21 12:30 DC 03/14/21 08:21 Divalproex Sodium (Depakote Sprinkles) 125 mg 0900,1700 PO 03/01/21 09:00 03/04/21 18:15 DC 03/04/21 17:13 Divalproex Sodium (Depakote Sprinkles) 250 mg 0900,1700 PO 03/05/21 09:00 03/14/21 12:30 DC 03/14/21 08:20 Quetiapine Fumarate (SEROquel) 25 mg 0900,1300,1700 PO 03/06/21 13:00 03/14/21 12:30 DC 03/14/21 08:21 I have reviewed the current psychotropics carefully including drug interactions. Risk benefit ratio favors no change other than as noted in my dictated progress note. Diagnosis: Problems: (1) Dementia with behavioral disturbance (2) Impulse control disorder, unspecified (3) Anxiety disorder, unspecified (4) Dementia, vascular, with depression (5) Dementia, vascular, with delusions (6) Dementia in Alzheimer's disease with depression (7) Dementia in Alzheimer's disease with delusions (8) Major neurocognitive disorder JENNIFER HANSON MD Mar 14, 2021 21:15
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
== END 2021-03-14 11:30 | disposition home or self-care (01) | DRG 57 ==
LOC: GEROPSY 15:25
PROVIDERS: ADMIT Psychiatry & Neurology Psychiatry; ATTEND Psychiatry & Neurology Psychiatry
DX: G30.9 Alzheimer's disease, unspecified (principal); F01.51 Vascular dementia, unspecified severity, with behavioral disturbance; F02.81 Dementia in other diseases classified elsewhere, unspecified severity, with behavioral disturbance; F32.A Depression, unspecified; F41.9 Anxiety disorder, unspecified; E78.5 Hyperlipidemia, unspecified; F63.9 Impulse disorder, unspecified; H91.90 Unspecified hearing loss, unspecified ear; I10 Essential (primary) hypertension; Z66 Do not resuscitate; Z20.822 Contact with and (suspected) exposure to COVID-19; G43.909 Migraine, unspecified, not intractable, without status migrainosus; M48.00 Spinal stenosis, site unspecified; Z79.899 Other long term (current) drug therapy; Z86.73 Personal history of transient ischemic attack (TIA), and cerebral infarction without residual deficits
CPT/HCPCS: 36415; 70450; 80053; 80061; 80164; 81001; 82306; 82607; 83036; 83540; 83550; 83735; 84436; 84443; 84480; 85025; 85379; 86592; 93005; U0003; 97535